=== PATIENT | male | born 1990 | race African-American/Black ===

== ENCOUNTER 2017-04-03 07:14 | Emergency (ER) | payer SELFPAY ==
[2017-04-03] MEDS ORDERED: METOCLOPRAMIDE HCL 10 MG TABLET PO ONE (08:03)
[2017-04-03] MEDS ORDERED: DICYCLOMINE HCL 20 MG TABLET PO ONE (08:03)
[2017-04-03 08:24] LABS: ABSOLUTE EOSINOPHILS # (AUTO) 0.4 10^3/uL (0.0-0.6); ABSOLUTE LYMPHOCYTES (AUTO) 1.4 10^3/uL (0.5-4.7); ABSOLUTE MONOCYTES (AUTO) 0.6 10^3/uL (0.1-1.4); ABSOLUTE NEUT (AUTO) 4.5 10^3/uL (1.7-8.2); BASOPHILS % (AUTO) 0.5 % (0-2); EOSINOPHILS % (AUTO) 5.8 % (0-6); HEMATOCRIT 45.6 % (37.9-51.0); HEMOGLOBIN 15.5 g/dL (13.5-17.0); LYMPHOCYTES % (AUTO) 20.2 % (13-45); MEAN CORPUSCULAR HGB CONC 34.1 g/dL (32.0-36.0); MEAN CORPUSCULAR VOLUME 88 fl (80-97); MONOCYTES % (AUTO) 8.4 % (3-13); PLATELET COUNT 359 10^3/uL (150-450); RED BLOOD COUNT 5.18 10^6/uL (4.35-5.55); RED CELL DISTRIBUTION WIDTH 13.6 % (11.5-14.0); SEGMENTED NEUTROPHILS % (AUTO) 65.1 % (42-78); TOTAL CELLS COUNTED % (AUTO) 100 %; WHITE BLOOD COUNT 6.8 10^3/uL (4.0-10.5)
--- NOTE | 2017-04-03 08:37 | ER Document Report ---
ED General - General Chief Complaint: Abdominal Pain Stated Complaint: STOMACH ACHE Time Seen by Provider: 04/03/17 07:29 Mode of Arrival: Ambulatory Information source: Patient Notes: 27 yr old male presents with complaints of nausea and diarrhea of 2 week duration with cramping and intermittent blood bright red tinge stool. Pt denies any fevers or chills, denies any vomiting. no previous hx, no family hx, no well water, TRAVEL OUTSIDE OF THE [place] IN LAST 30 DAYS: No - HPI Onset: Other Onset/Duration: Persistent Quality of pain: No pain Severity: Mild Pain Level: Denies Associated symptoms: Diarrhea, Nausea Exacerbated by: Denies Relieved by: Denies Similar symptoms previously: No Recently seen / treated by doctor: No - Related Data Allergies/Adverse Reactions: No Known Allergies Allergy (Unverified 04/03/17 07:17) Past Medical History - Social History Smoking Status: Current Every Day Smoker Cigarette use (# per day): Yes Chew tobacco use (# tins/day): No Smoking Education Provided: No Frequency of alcohol use: None Drug Abuse: None Family History: Reviewed & Not Pertinent Patient has suicidal ideation: No Patient has homicidal ideation: No Renal/ Medical History: Denies: Hx Peritoneal Dialysis Review of Systems - Review of Systems Notes: REVIEW OF SYSTEMS: CONSTITUTIONAL : Denies fever, chills, or sweats. Admits recent illness. EENT: Denies eye, ear, throat, or mouth pain or symptoms. Denies nasal or sinus congestion or discharge. Denies throat, tongue, or mouth swelling or difficulty swallowing. CARDIOVASCULAR: Denies chest pain. Denies palpitations or racing or irregular heart beat. Denies ankle edema. RESPIRATORY: Denies cough, cold, or chest congestion. Denies shortness of breath, difficulty breathing, or wheezing. GASTROINTESTINAL: admit to abd pain, cramping , nausea diarrhea GENITOURINARY: Denies difficulty urinating, painful urination, burning, frequency, blood in urine, or discharge. MUSCULOSKELETAL: Denies back or neck pain or stiffness. Denies joint pain or swelling. SKIN: Denies rash, lesions or sores. HEMATOLOGIC : Denies easy bruising or bleeding. LYMPHATIC: Denies swollen, enlarged glands. NEUROLOGICAL: Denies confusion or altered mental status. Denies passing out or loss of consciousness. Denies dizziness or lightheadedness. Denies headache. Denies weakness or paralysis or loss of use of either side. Denies problems with gait or speech. Denies sensory loss, numbness, or tingling. Denies seizures. PSYCHIATRIC: Denies anxiety or stress. Denies depression, suicidal ideation, or homicidal ideation. ALL OTHER SYSTEMS REVIEWED AND NEGATIVE. Dictation was performed using [employer] voice recognition software PHYSICAL EXAMINATION: GENERAL: Well-appearing, well-nourished and in no acute distress. HEAD: Atraumatic, normocephalic. EYES: Pupils equal round and reactive to light, extraocular movements intact, sclera anicteric, conjunctiva are normal. ENT: Nares patent, oropharynx clear without exudates. Moist mucous membranes. NECK: Normal range of motion, supple without lymphadenopathy LUNGS: Breath sounds clear to auscultation bilaterally and equal. No wheezes rales or rhonchi. HEART: Regular rate and rhythm without murmurs ABDOMEN: Soft, nontender, nondistended abdomen. No guarding, no rebound. No masses appreciated. Musculoskeletal: Normal range of motion, no pitting or edema. No cyanosis. NEUROLOGICAL: Cranial nerves grossly intact. Normal speech, normal gait. Normal sensory, motor exams PSYCH: Normal mood, normal affect. SKIN: Warm, Dry, normal turgor, no rashes or lesions noted. Physical Exam - Vital signs Vitals: Temp Pulse Resp BP Pulse Ox 98.3 F 85 16 143/82 H 98 04/03/17 07:23 04/03/17 07:23 04/03/17 07:23 04/03/17 07:23 04/03/17 07:23 Course - Re-evaluation Re-evalutation: 04/03/17 08:37 Patient's abdominal examination is quite benign, there is no sign of fever however stool sample was noted to be quite foul-smelling 04/03/17 10:29 White blood cells and C. difficile were negative patient will be treated for probable bacterial diarrhea After performing a Medical Screening Examination, I estimate there is LOW risk for ACUTE APPENDICITIS, BOWEL OBSTRUCTION, ACUTE CHOLECYSTITIS, PERFORATED DIVERTICULITIS, INCARCERATED HERNIA, PANCREATITIS, TESTICULAR TORSION or PERFORATED ULCER, thus I consider the discharge disposition reasonable. Also, there is no evidence or peritonitis, sepsis, or toxicity. I have reevaluated this patient multiple times and no significant life threatening changes are noted. The patient and I have discussed the diagnosis and risks, and we agree with discharging home with close follow-up with the understanding that symptoms and presentations can change. We also discussed returning to the Emergency Department immediately if new or worsening symptoms occur. We have discussed the symptoms which are most concerning (e.g., bloody stool, fever, changing or worsening pain, intractable vomiting - standard verbal up date) that necessitate immediate return. - Vital Signs Vital signs: Temp Pulse Resp BP Pulse Ox 98.3 F 85 16 143/82 H 98 04/03/17 07:23 04/03/17 07:23 04/03/17 07:23 04/03/17 07:23 04/03/17 07:23 - Laboratory Result Diagrams: 04/03/17 07:58 04/03/17 07:58 Laboratory results interpreted by me: 04/03/17 07:58 Glucose 140 H AST 16 L Discharge - Discharge Clinical Impression: Abdominal cramping Diarrhea Qualifiers: Diarrhea type: unspecified type Qualified Code(s): R19.7 - Diarrhea, unspecified Condition: Stable Disposition: HOME, SELF-CARE Instructions: Abdominal Pain ([facility]) Additional Instructions: Follow up with your physician tomorrow for further care or return to the ED IMMEDIATELY if symptoms worsen or new concerns occur. If you cannot afford to follow up with your primary care physician a list of low cost clinics have been provided at the end of your discharge papers as well. Prescriptions: Ciprofloxacin HCl [Cipro 500 mg Tablet] 500 mg PO BID #20 tablet Metronidazole [Flagyl 500 mg Tablet] 500 mg PO Q8 #30 tablet
[2017-04-03 08:39] LABS: ALANINE AMINOTRANSFERASE 24 U/L (21-72); ALKALINE PHOSPHATASE 90 U/L (38-126); ANION GAP 12 (5-19); ASPARTATE AMINO TRANSFERASE 16 U/L (17-59); BILIRUBIN,DIRECT 0.2 mg/dL (0.0-0.4); BILIRUBIN,TOTAL 0.5 mg/dL (0.2-1.3); BLOOD UREA NITROGEN 10 mg/dL (7-20); CALCIUM 10.2 mg/dL (8.4-10.2); CARBON DIOXIDE 25 mmol/L (22-30); CHLORIDE 103 mmol/L (98-107); GLUCOSE 140 mg/dL (75-110); LIPASE 27.5 U/L (23-300); POTASSIUM 4.3 mmol/L (3.6-5.0); SODIUM 140.3 mmol/L (137-145); TOTAL PROTEIN 6.7 g/dL (6.3-8.2)
[2017-04-03 10:50] VITALS: BP 128/75
== END 2017-04-03 10:49 | disposition home or self-care (01) ==
LOC: ER 07:14
DX: R10.9 Unspecified abdominal pain (principal); R19.7 Diarrhea, unspecified; R11.0 Nausea; F17.210 Nicotine dependence, cigarettes, uncomplicated
CPT/HCPCS: 99284; 36415; 87045; 89055; 87205; 87209; 83690; 87177; 85025; 80053; 87493; J3490

== ENCOUNTER 2017-04-21 04:05 | Emergency (ER) | payer SELFPAY ==
[2017-04-21 04:32] LABS: ABSOLUTE EOSINOPHILS # (AUTO) 0.2 10^3/uL (0.0-0.6); ABSOLUTE LYMPHOCYTES (AUTO) 0.9 10^3/uL (0.5-4.7); ABSOLUTE MONOCYTES (AUTO) 0.5 10^3/uL (0.1-1.4); BASOPHILS % (AUTO) 0.5 % (0-2); EOSINOPHILS % (AUTO) 2.9 % (0-6); HEMOGLOBIN 15.3 g/dL (13.5-17.0); LYMPHOCYTES % (AUTO) 12.2 % (13-45); MEAN CORPUSCULAR HEMOGLOBIN 29.9 pg (27.0-33.4); MEAN CORPUSCULAR VOLUME 88 fl (80-97); MONOCYTES % (AUTO) 6.6 % (3-13); PLATELET COUNT 354 10^3/uL (150-450); RED BLOOD COUNT 5.11 10^6/uL (4.35-5.55); RED CELL DISTRIBUTION WIDTH 13.7 % (11.5-14.0); SEGMENTED NEUTROPHILS % (AUTO) 77.8 % (42-78); TOTAL CELLS COUNTED % (AUTO) 100 %; WHITE BLOOD COUNT 7.7 10^3/uL (4.0-10.5)
[2017-04-21 05:02] LABS: APPEARANCE,URINE CLOUDY; BILIRUBIN,URINE NEGATIVE (NEGATIVE); COLOR,URINE YELLOW; GLUCOSE, URINE NEGATIVE (NEGATIVE); KETONES,URINE NEGATIVE (NEGATIVE); LEUKOCYTE ESTERASE,URINE NEGATIVE (NEGATIVE); NITRITE,URINE NEGATIVE (NEGATIVE); PROTEIN,URINE NEGATIVE (NEGATIVE); URINE SPECIFIC GRAVITY 1.015; UROBILINOGEN,URINE NEGATIVE mg/dL (<2.0)
[2017-04-21 05:06] LABS: ALANINE AMINOTRANSFERASE 22 U/L (21-72); ALBUMIN 4.5 g/dL (3.5-5.0); ALKALINE PHOSPHATASE 74 U/L (38-126); ANION GAP 10 (5-19); ASPARTATE AMINO TRANSFERASE 21 U/L (17-59); BILIRUBIN,DIRECT 0.3 mg/dL (0.0-0.4); BILIRUBIN,TOTAL 0.4 mg/dL (0.2-1.3); BLOOD UREA NITROGEN 11 mg/dL (7-20); CALCIUM 10.4 mg/dL (8.4-10.2); CARBON DIOXIDE 25 mmol/L (22-30); CHLORIDE 107 mmol/L (98-107); GLUCOSE 107 mg/dL (75-110); POTASSIUM 4.7 mmol/L (3.6-5.0); SODIUM 141.5 mmol/L (137-145); TOTAL PROTEIN 7.4 g/dL (6.3-8.2)
[2017-04-21] MEDS ORDERED: METOCLOPRAMIDE HCL INJ/PF 10 MG/2 ML SDV IV ONE (06:22)
[2017-04-21] MEDS ORDERED: DICYCLOMINE HCL 20 MG TABLET PO ONE (06:22)
--- NOTE | 2017-04-21 07:20 | ER Document Report ---
ED General - General Chief Complaint: Abdominal Cramping Stated Complaint: ABDOMINAL PAIN Time Seen by Provider: 04/21/17 06:10 Mode of Arrival: Ambulatory Information source: Patient Notes: 27-year-old male who presents with complaints of intermittent abdominal cramping. Patient notes symptoms first started a couple weeks ago when he had seen me, he notes his symptoms improved after medications but once medications resolved he had cramping again. Patient denies any fevers or chills notes the gas has improved. He denies any specific food causing the cramping denies any similar family history denies any significant diarrhea TRAVEL OUTSIDE OF THE [place] IN LAST 30 DAYS: No - HPI Onset: Other Onset/Duration: Intermittent Quality of pain: Cramping Severity: Mild Pain Level: 1 Associated symptoms: Diarrhea, Nausea, Other Exacerbated by: Denies Relieved by: Denies Similar symptoms previously: Yes Recently seen / treated by doctor: Yes - Related Data Allergies/Adverse Reactions: No Known Allergies Allergy (Unverified 04/03/17 07:17) Past Medical History - Social History Smoking Status: Never Smoker Cigarette use (# per day): No Chew tobacco use (# tins/day): No Smoking Education Provided: No Frequency of alcohol use: None Drug Abuse: None Family History: Reviewed & Not Pertinent Patient has suicidal ideation: No Patient has homicidal ideation: No Renal/ Medical History: Denies: Hx Peritoneal Dialysis Review of Systems - Review of Systems Notes: REVIEW OF SYSTEMS: CONSTITUTIONAL : Denies fever, chills, or sweats. Denies recent illness. EENT: Denies eye, ear, throat, or mouth pain or symptoms. Denies nasal or sinus congestion or discharge. Denies throat, tongue, or mouth swelling or difficulty swallowing. CARDIOVASCULAR: Denies chest pain. Denies palpitations or racing or irregular heart beat. Denies ankle edema. RESPIRATORY: Denies cough, cold, or chest congestion. Denies shortness of breath, difficulty breathing, or wheezing. GASTROINTESTINAL: Admits to abdominal cramping GENITOURINARY: Denies difficulty urinating, painful urination, burning, frequency, blood in urine, or discharge. MUSCULOSKELETAL: Denies back or neck pain or stiffness. Denies joint pain or swelling. SKIN: Denies rash, lesions or sores. HEMATOLOGIC : Denies easy bruising or bleeding. LYMPHATIC: Denies swollen, enlarged glands. NEUROLOGICAL: Denies confusion or altered mental status. Denies passing out or loss of consciousness. Denies dizziness or lightheadedness. Denies headache. Denies weakness or paralysis or loss of use of either side. Denies problems with gait or speech. Denies sensory loss, numbness, or tingling. Denies seizures. PSYCHIATRIC: Denies anxiety or stress. Denies depression, suicidal ideation, or homicidal ideation. ALL OTHER SYSTEMS REVIEWED AND NEGATIVE. Dictation was performed using [employer] voice recognition software PHYSICAL EXAMINATION: GENERAL: Well-appearing, well-nourished and in no acute distress. HEAD: Atraumatic, normocephalic. EYES: Pupils equal round and reactive to light, extraocular movements intact, sclera anicteric, conjunctiva are normal. ENT: Nares patent, oropharynx clear without exudates. Moist mucous membranes. NECK: Normal range of motion, supple without lymphadenopathy LUNGS: Breath sounds clear to auscultation bilaterally and equal. No wheezes rales or rhonchi. HEART: Regular rate and rhythm without murmurs ABDOMEN: Soft, nontender, nondistended abdomen. No guarding, no rebound. No masses appreciated. Musculoskeletal: Normal range of motion, no pitting or edema. No cyanosis. NEUROLOGICAL: Cranial nerves grossly intact. Normal speech, normal gait. Normal sensory, motor exams PSYCH: Normal mood, normal affect. SKIN: Warm, Dry, normal turgor, no rashes or lesions noted. Physical Exam - Vital signs Vitals: Temp Pulse Resp BP Pulse Ox 98.4 F 91 18 145/88 H 97 04/21/17 04:10 04/21/17 04:10 04/21/17 04:10 04/21/17 04:10 04/21/17 04:10 Course - Re-evaluation Re-evalutation: 04/21/17 07:18 Patient's blood work looks significantly well is in no complaints, he denies any cramping or pain now. He is stable at this time. will treat symptomatically with follow up with GI Patient instructed on risks and benefits of medications prescribed. Denies any concerns regarding such. After performing a Medical Screening Examination, I estimate there is LOW risk for ACUTE APPENDICITIS, BOWEL OBSTRUCTION, ACUTE CHOLECYSTITIS, PERFORATED DIVERTICULITIS, INCARCERATED HERNIA, PANCREATITIS, TESTICULAR TORSION or PERFORATED ULCER, thus I consider the discharge disposition reasonable. Also, there is no evidence or peritonitis, sepsis, or toxicity. I have reevaluated this patient multiple times and no significant life threatening changes are noted. The patient and I have discussed the diagnosis and risks, and we agree with discharging home with close follow-up with the understanding that symptoms and presentations can change. We also discussed returning to the Emergency Department immediately if new or worsening symptoms occur. We have discussed the symptoms which are most concerning (e.g., bloody stool, fever, changing or worsening pain, intractable vomiting - standard verbal up date) that necessitate immediate return. 04/21/17 07:20 - Vital Signs Vital signs: Temp Pulse Resp BP Pulse Ox 98.4 F 91 18 145/88 H 97 04/21/17 04:10 04/21/17 04:10 04/21/17 04:10 04/21/17 04:10 04/21/17 04:10 - Laboratory Result Diagrams: 04/21/17 04:22 04/21/17 04:22 Laboratory results interpreted by me: 04/21/17 04/21/17 04/21/17 04:22 04:22 04:22 Lymphocytes % 12.2 L Calcium 10.4 H Urine Blood SMALL H Discharge - Discharge Clinical Impression: Bowel irritation Abdominal pain Qualifiers: Abdominal location: lower abdomen, unspecified Qualified Code(s): R10.30 - Lower abdominal pain, unspecified Condition: Stable Disposition: HOME, SELF-CARE Instructions: Abdominal Pain ([facility]) Prescriptions: Dicyclomine HCl [Bentyl 20 mg Tablet] 20 mg PO QID #40 tablet Prednisone [Deltasone 20 mg Tablet] 3 tab PO DAILY 5 Days tablet Referrals: IMTIAZ HERNANDEZ MD [ACTIVE STAFF] - Follow up tomorrow
[2017-04-21 07:39] VITALS: BP 148/79
== END 2017-04-21 07:39 | disposition home or self-care (01) ==
LOC: ER 04:05
DX: K58.9 Irritable bowel syndrome, unspecified (principal); R10.30 Lower abdominal pain, unspecified
CPT/HCPCS: 99284; 96374; 36415; 85025; 80053; 81001; J3490; J2765

== ENCOUNTER 2017-05-30 07:33 | Observation (INO) | payer SELFPAY ==
--- NOTE | 2017-05-30 08:00 | ER Document Report ---
ED General - General Chief Complaint: Nausea/Vomiting Stated Complaint: VOMITING Time Seen by Provider: 05/30/17 07:59 Mode of Arrival: Ambulatory Information source: Patient TRAVEL OUTSIDE OF THE [place] IN LAST 30 DAYS: No - HPI Notes: 19-year-old male presents today with complaints of having epigastric pain, nausea and vomiting with bloating for the last week. Denies any coffee-ground emesis, denies any hemoptysis. Reports decreased appetite and drinking. Denies any diarrhea. Patient is having regular bowel movements. Patient denies any recent travel, new medications or new foods. Patient denies having history of gastritis. Has not been around any sick contacts. Patient currently is not working, states he has not been around a lot of people. Denies fevers, chills, chest pain,palpitations, shortness of breath, dyspnea, diarrhea, abdominal pain, hematuria,blurred vision, double vision, loss of vision, speech changes, LH, dizziness, syncope, headaches, wheezing, ST, URI, neck pain, weakness, bowel or bladder dysfunction, saddle anesthesia, numbness or tingling in bilateral upper or lower extremities equally, muscle paralysis, weakness in bilateral upper or lower extremities equally or rash. Denies IV drug use. - Related Data Allergies/Adverse Reactions: No Known Allergies Allergy (Verified 05/30/17 07:34) Past Medical History - General Information source: Patient - Social History Smoking Status: Unknown if Ever Smoked Family History: Reviewed & Not Pertinent Renal/ Medical History: Denies: Hx Peritoneal Dialysis Review of Systems - Review of Systems Notes: REVIEW OF SYSTEMS: CONSTITUTIONAL : Denies fever, chills, or sweats. Denies recent illness. EENT: Denies eye, ear, throat, or mouth pain or symptoms. Denies nasal or sinus congestion or discharge. Denies throat, tongue, or mouth swelling or difficulty swallowing. CARDIOVASCULAR: Denies chest pain. Denies palpitations or racing or irregular heart beat. Denies ankle edema. RESPIRATORY: Denies cough, cold, or chest congestion. denies shortness of breath, difficulty breathing, or wheezing. GASTROINTESTINAL: Denies abdominal pain or distention. Reports nausea, vomiting, or diarrhea. Denies blood in vomitus, stools, or per rectum. Denies black, tarry stools. Denies constipation. GENITOURINARY: Denies difficulty urinating, painful urination, burning, frequency, blood in urine, or discharge. MUSCULOSKELETAL: Denies back or neck pain or stiffness. Denies joint pain or swelling. SKIN: Denies rash, lesions or sores. HEMATOLOGIC : Denies easy bruising or bleeding. LYMPHATIC: Denies swollen, enlarged glands. NEUROLOGICAL: Denies confusion or altered mental status. Denies passing out or loss of consciousness. Denies dizziness or lightheadedness. Denies headache. Denies weakness or paralysis or loss of use of either side. Denies problems with gait or speech. Denies sensory loss, numbness, or tingling. Denies seizures. PSYCHIATRIC: Denies anxiety or stress. Denies depression, suicidal ideation, or homicidal ideation. ALL OTHER SYSTEMS REVIEWED AND NEGATIVE. Dictation was performed using [employer] voice recognition software PHYSICAL EXAMINATION: GENERAL: Well-appearing, well-nourished and in no acute distress. HEAD: Atraumatic, normocephalic. EYES: Pupils equal round and reactive to light, extraocular movements intact, sclera anicteric, conjunctiva are normal. ENT: Nares patent, oropharynx clear without exudates. Moist mucous membranes. NECK: Normal range of motion, supple without lymphadenopathy LUNGS: Breath sounds clear to auscultation bilaterally and equal. No wheezes rales or rhonchi. HEART: Regular rate and rhythm without murmurs ABDOMEN: Soft, noted epigastric tenderness as well as RUQ, LUQ tenderness on palpation. nondistended abdomen. No guarding, no rebound. No masses appreciated. Bowel sounds heard in all quadrants. No CVA tenderness bilaterally. Musculoskeletal: Normal range of motion, no pitting or edema. No cyanosis. NEUROLOGICAL: Cranial nerves grossly intact. Normal speech, normal gait. Normal sensory, motor exams PSYCH: Normal mood, normal affect. SKIN: Warm, Dry, normal turgor, no rashes or lesions noted. Physical Exam - Vital signs Vitals: Temp Pulse Resp BP Pulse Ox 98.6 F 99 18 130/85 H 98 05/30/17 07:37 05/30/17 07:37 05/30/17 07:37 05/30/17 07:37 05/30/17 07:37 Course - Re-evaluation Re-evalutation: 05/30/17 12:27 Pt given 2 boluses of normal saline as well as medication for pain control. Patient is in no distress. Patient also given Zofran for nausea. awaiting CT results Discussed the results of thelabs/radiology as well as the diagnosis at great length. CBC is negative for any leukocytosis. CMP negative for any renal failure or liver failure. Urinalysis shows hematuria with proteinuria. CT abdomen pelvis with oral and IV contrast shows the patient has an incarcerated internal hernia, probably paraduodenal. Consulted with Dr. Dmitry Prescott, surgeon on-call, at 1215 regarding pertinent radiological and laboratory findings. Stated he will consult with patient at bedside. Dr. Prescott admit patient for surgery. Consulted with patient, states he understands diagnoses, all questions and concerns answered by this provider. Patient admitted to medical floor without telemetry. - Vital Signs Vital signs: Temp Pulse Resp BP Pulse Ox 98.6 F 86 18 141/87 H 98 05/30/17 13:15 05/30/17 13:15 05/30/17 13:15 05/30/17 13:15 05/30/17 13:15 - Laboratory Result Diagrams: 05/30/17 08:54 05/30/17 08:54 Laboratory results interpreted by me: 05/30/17 05/30/17 08:54 08:54 Calcium 10.5 H Direct Bilirubin 0.5 H Total Protein 8.4 H Urine Protein 30 H Urine Ketones 80 H Urine Blood MODERATE H Discharge - Discharge Clinical Impression: Incarcerated internal hernia Condition: Good Disposition: ADMITTED INPATIENT Admitting Provider: Surgicalist - Dr. Dmitry Prescott Unit Admitted: Medical Floor
[2017-05-30] MEDS ORDERED: ONDANSETRON HCL INJ/PF 4 MG/2 ML SDV IV ONE (08:16)
[2017-05-30] MEDS ORDERED: NORMAL SALINE 1000 ML 1,000 ML IV ONE ×2 (08:16→11:36)
[2017-05-30] MEDS ORDERED: SUCCINYLCHOLINE CHLORIDE INJ 200 MG/10 ML VIAL ONE (08:22)
[2017-05-30] MEDS ORDERED: NEOSTIGMINE METHYLSULFATE 10 MG/10 ML VIAL ONE (08:22)
[2017-05-30] MEDS ORDERED: GLYCOPYRROLATE INJ 0.4 MG/2 ML VIAL ONE (08:22)
[2017-05-30] MEDS ORDERED: VECURONIUM BROMIDE INJ 10 MG VIAL IV ONE (08:22)
[2017-05-30 09:09] LABS: ABSOLUTE EOSINOPHILS # (AUTO) 0.1 10^3/uL (0.0-0.6); ABSOLUTE LYMPHOCYTES (AUTO) 0.9 10^3/uL (0.5-4.7); ABSOLUTE MONOCYTES (AUTO) 0.6 10^3/uL (0.1-1.4); ABSOLUTE NEUT (AUTO) 4.4 10^3/uL (1.7-8.2); BASOPHILS % (AUTO) 0.6 % (0-2); EOSINOPHILS % (AUTO) 1.3 % (0-6); HEMATOCRIT 48.4 % (37.9-51.0); HEMOGLOBIN 16.7 g/dL (13.5-17.0); LYMPHOCYTES % (AUTO) 14.9 % (13-45); MEAN CORPUSCULAR HEMOGLOBIN 30.1 pg (27.0-33.4); MEAN CORPUSCULAR HGB CONC 34.4 g/dL (32.0-36.0); MEAN CORPUSCULAR VOLUME 88 fl (80-97); MONOCYTES % (AUTO) 9.5 % (3-13); PLATELET COUNT 370 10^3/uL (150-450); RED BLOOD COUNT 5.53 10^6/uL (4.35-5.55); RED CELL DISTRIBUTION WIDTH 13.9 % (11.5-14.0); SEGMENTED NEUTROPHILS % (AUTO) 73.7 % (42-78); TOTAL CELLS COUNTED % (AUTO) 100 %
[2017-05-30 09:35] LABS: ALANINE AMINOTRANSFERASE 23 U/L (21-72); ALKALINE PHOSPHATASE 83 U/L (38-126); AMYLASE 70 U/L (30-110); ANION GAP 14 (5-19); ASPARTATE AMINO TRANSFERASE 17 U/L (17-59); BILIRUBIN,DIRECT 0.5 mg/dL (0.0-0.4); BILIRUBIN,TOTAL 0.9 mg/dL (0.2-1.3); BLOOD UREA NITROGEN 15 mg/dL (7-20); C-REACTIVE PROTEIN < 5.0 mg/L (<10.0); CALCIUM 10.5 mg/dL (8.4-10.2); CARBON DIOXIDE 26 mmol/L (22-30); CHLORIDE 100 mmol/L (98-107); GLUCOSE 84 mg/dL (75-110); LIPASE 33.1 U/L (23-300); POTASSIUM 4.5 mmol/L (3.6-5.0); SODIUM 139.6 mmol/L (137-145); TOTAL PROTEIN 8.4 g/dL (6.3-8.2)
[2017-05-30 10:10] LABS: APPEARANCE,URINE SLIGHTLY-CLOUDY; BILIRUBIN,URINE NEGATIVE (NEGATIVE); COLOR,URINE YELLOW; GLUCOSE, URINE NEGATIVE (NEGATIVE); KETONES,URINE 80 mg/dL (NEGATIVE); LEUKOCYTE ESTERASE,URINE NEGATIVE (NEGATIVE); NITRITE,URINE NEGATIVE (NEGATIVE); PROTEIN,URINE 30 mg/dL (NEGATIVE); URINE SPECIFIC GRAVITY 1.038; UROBILINOGEN,URINE NEGATIVE mg/dL (<2.0)
--- NOTE | 2017-05-30 11:57 | RADIOLOGY REPORT (SQ) ---
EXAM DESCRIPTION: CT ABD/PELVIS WITH IV ORAL COMPLETED DATE/TIME: 05/30/2017 11:43 am REASON FOR STUDY: epigastric pain with vomiting x 1 week COMPARISON: None. TECHNIQUE: CT scan of the abdomen and pelvis performed using helical scanning technique with dynamic intravenous contrast injection. No oral contrast. Images reviewed with lung, soft tissue, and bone windows. Reconstructed coronal and sagittal MPR images reviewed. Delayed images for evaluation of the urinary system also acquired. All images stored on PACS. All CT scanners at this facility use dose modulation, iterative reconstruction, and/or weight based d osing when appropriate to reduce radiation dose to as low as reasonably achievable (ALARA). [facility]: Dose Right [facility]: CareDose [facility]: Dose Right [facility]: Teradose 4D [facility]: [employer] CONTRAST TYPE AND DOSE: contrast/concentration: Isovue 370.00 mg/ml; Total Contrast Delivered: 90.0 ml; Total Saline Delivered: 67.0 ml RENAL FUNCTION: GFR > 60. RADIATION DOSE: CT Rad equipment meets quality standard of care and radiation dose reduction techniq ues were employed. CTDIvol: 5.6 - 7.4 mGy. DLP: 716 mGy-cm.. LIMITATIONS: None. FINDINGS: LOWER CHEST: No significant findings. No nodules or infiltrates. LIVER: Normal size. No masses. No dilated ducts. SPLEEN: Normal size. No focal lesions. PANCREAS: No masses. No significant calcifications. No adjacent inflammation or peripancreatic fluid collections. Pancreatic duct not dilated. GALLBLADDER: No identified stones by CT criteria. No inflammatory changes to suggest cholecystitis. ADRENAL GLANDS: No significant masses or asymmetry. RIGHT KIDNEY AND URETER: No solid masses. No significant calcifications. No hydronephrosis or hyd roureter. LEFT KIDNEY AND URETER: No solid masses. No significant calcifications. No hydronephrosis or hydr oureter. AORTA AND VESSELS: No aneurysm. No dissection. Renal arteries, SMA, celiac without stenosis. RETROPERITONEUM: No retroperitoneal adenopathy, hemorrhage or masses. BOWEL AND PERITONEAL CAVITY: Dilated loops of edematous bowel in the anterior upper abdomen with a sw irling mesenteric pattern in the subhepatic peritoneum. More distal small bowel and colon is normal. No free air or ascites. APPENDIX: Normal. PELVIS: No mass. No free fluid. Normal bladder. ABDOMINAL WALL: No masses. No hernias. BONES: No significant or acute findings. OTHER: No other significant finding. IMPRESSION: Incarcerated internal hernia, probably paraduodenal. Surgical consultation is recommend ed. TECHNICAL DOCUMENTATION: JOB ID: [id number] Quality ID # [id number]: Final reports with documentation of one or more dose reduction techniques (e.g., Au tomated exposure control, adjustment of the mA and/or kV according to patient size, use of iterative reconstruction technique) 2010 [employer]- All Rights Reserved Reading location - IP/workstation name: [email or web address]
[2017-05-30] MEDS ORDERED: HYDROMORPHONE HCL INJ/PF 2 MG/ML AMPULE IV ONE (12:33)
[2017-05-30] MEDS ORDERED: METOCLOPRAMIDE HCL INJ/PF 10 MG/2 ML SDV IV ONE (13:02)
[2017-05-30] MEDS: NORMAL SALINE 1000 ML 1,000 ML IV PRN (13:05)
--- NOTE | 2017-05-30 13:44 | PDOC H&P ---
History of Present Illness Admission Date/PCP: 05/30/17 13:11 History of Present Illness: ELOISE FLETCHER is a 27 year old male Is seen via ground rescue in the emergency department [facility] for the third time in 2 months complaining of abdominal pain. Patient describes his pain as cramping which began in February. They actually followed flulike symptoms for approximately 1 week. Over the last 2-1/2-3 months the cramping is become more frequent, associated with decreased appetite nausea and over the last several days of vomiting. Patient was seen in the emergency department on April 20 and April 03 at which time he was found to have no evidence of an acute abdomen. Patient's stools have been loose occasionally patient was given p.o. antibiotics the April 20 visit states his symptoms improved temporarily. Patient has had increased pain decreased appetite much more intense the last few days. Last meal was 2 days ago was a salad. Patient thinks he has lost between 20 and 40 pounds over the last 3 months. Patient denies history of previous gastro-intestinal problems, history of trauma. Past Medical History Medical History: None Past Surgical History Past Surgical History: Reports: Other - Umbilical hernia, open, as a child Social History Smoking Status: Former Smoker Family History Family History: Reviewed & Not Pertinent Parental Family History Reviewed: Yes Children Family History Reviewed: Yes Sibling(s) Family History Reviewed.: Yes Medication/Allergy Home Medications: Ciprofloxacin HCl [Cipro 500 mg Tablet] 500 mg PO BID #20 tablet 04/03/17 Dicyclomine HCl [Bentyl 20 mg Tablet] 20 mg PO QID #40 tablet 04/03/17 Metoclopramide HCl [Reglan 10 mg Tablet] 1 - 2 tab PO Q6 #25 tablet 04/03/17 Metronidazole [Flagyl 500 mg Tablet] 500 mg PO Q8 #30 tablet 04/03/17 Dicyclomine HCl [Bentyl 20 mg Tablet] 20 mg PO QID #40 tablet 04/21/17 Prednisone [Deltasone 20 mg Tablet] 3 tab PO DAILY 5 Days tablet 04/21/17 Allergies/Adverse Reactions: No Known Allergies Allergy (Verified 05/30/17 07:34) Review of Systems Constitutional: PRESENT: weakness Eyes: ABSENT: visual disturbances Ears: ABSENT: hearing changes Cardiovascular: ABSENT: chest pain, dyspnea on exertion, edema, orthropnea, palpitations Gastrointestinal: PRESENT: as per HPI Genitourinary: ABSENT: dysuria, hematuria Musculoskeletal: ABSENT: joint swelling Integumentary: ABSENT: rash, wounds Physical Exam Vital Signs: Temp Pulse Resp BP Pulse Ox 98.6 F 99 18 130/85 H 98 05/30/17 07:37 05/30/17 07:37 05/30/17 07:37 05/30/17 07:37 05/30/17 07:37 General appearance: PRESENT: no acute distress Head exam: PRESENT: normocephalic Eye exam: PRESENT: EOMI Ear exam: PRESENT: normal external ear exam Mouth exam: PRESENT: dry mucosa Neck exam: PRESENT: full ROM Respiratory exam: PRESENT: clear to auscultation arabella Pulses: PRESENT: normal carotid pulses, normal radial pulses, normal femoral pulses Vascular exam: PRESENT: normal capillary refill GI/Abdominal exam: PRESENT: firm, guarding, other - Tenderness in the epigastric area; I cannot palpate deeply enough to appreciate a mass Rectal exam: PRESENT: deferred Gentrourinary exam: PRESENT: other - Unremarkable Musculoskeletal exam: PRESENT: full ROM Neurological exam: PRESENT: oriented to person, oriented to place, oriented to time, oriented to situation Psychiatric exam: PRESENT: anxious Results Impressions: Abdomen/Pelvis CT 05/30/17 00:00 IMPRESSION: Incarcerated internal hernia, probably paraduodenal. Surgical consultation is recommended. Assessment & Plan - Diagnosis (1) Abdominal pain Qualifiers: Abdominal location: epigastric Qualified Code(s): R10.13 - Epigastric pain Is this a current diagnosis for this admission?: Yes (2) Small bowel obstruction Is this a current diagnosis for this admission?: Yes Plan: Impression: The patient has a subacute history of anorexia, weight loss, crampy abdominal pain nausea and vomiting with a CT scan demonstrating what appears to be a proximal small bowel intussusception. The exact anatomic duration is difficult to sort out. Recommendations: 1. Admit, IV fluids, n.p.o. 2. Because of the findings thus far, and pain on exam, I believe the patient deserves exploratory laparotomy. I will discuss this with the patient, with a generalized discussion of benefits and alternatives to the offered procedure. - Time Time Spent: 30 to 50 Minutes Critical Time spent with patient: 15-24 minutes Medications reviewed and adjusted accordingly: Yes Anticipated discharge: Home - Inpatient Certification Based on my medical assessment, after consideration of the patient's comorbidities, presenting symptoms, or acuity I expect that the services needed warrant INPATIENT care.: Yes I certify that my determination is in accordance with my understanding of Medicare's requirements for reasonable and necessary INPATIENT services [42 CFR 412.3e].: Yes Medical Necessity: Need For IV Fluids, Need for Pain Control, Need for IV Antibiotics, Need for Surgery
[2017-05-30] MEDS ORDERED: BUPIVACAINE INJ/PF LIPOSOME/PF 266 MG/20 ML SDV ONE (14:52)
[2017-05-30] MEDS ORDERED: LIDOCAINE 2% INJ-PF (20 MG/ML) 10 ML AMPUL ONE (15:11)
[2017-05-30] MEDS ORDERED: FENTANYL CITRATE INJ/PF 100 MCG/2 ML AMPUL ONE (15:12)
[2017-05-30] MEDS ORDERED: DEXAMETHASONE SOD PHOSPHATE INJ 4 MG/1 ML VIAL ONE (15:12)
[2017-05-30] MEDS ORDERED: ONDANSETRON HCL INJ/PF 4 MG/2 ML SDV ONE (15:12)
[2017-05-30] MEDS ORDERED: MIDAZOLAM 2 MG/2 ML INJ ONE (15:12)
[2017-05-30] MEDS ORDERED: PROPOFOL INJ 200 MG/20 ML VIAL IV ONE (15:13)
[2017-05-30] MEDS ORDERED: ACETAMINOPHEN 100 ML IV ONE (15:13)
[2017-05-30] MEDS ORDERED: BUPIVACAINE HCL 0.25 % INJ/PF (2.5 MG/1 ML) 30 ML VIAL ONE (15:54)
[2017-05-30] MEDS ORDERED: ONDANSETRON HCL INJ/PF 4 MG/2 ML SDV IV PRN (16:22)
[2017-05-30] MEDS ORDERED: KETOROLAC TROMETHAMINE 10 MG TABLET PO PRN (16:22)
--- NOTE | 2017-05-30 16:31 | Operative Report ---
Operative Report DATE OF SURGERY: 05/30/17 PREOPERATIVE DIAGNOSIS: 1. Abdominal pain. 2. Small bowel intussusception POSTOPERATIVE DIAGNOSIS: Constipation of the right and transverse colon; no evidence of bowel intussusception or bowel blockage OPERATION: 1. Exploratory laparotomy. 2. Mechanical dislodgment of transverse colon feces SURGEON: ED BRANDT ANESTHESIA: GA TISSUE REMOVED OR ALTERED: None COMPLICATIONS: None ESTIMATED BLOOD LOSS: Scant INTRAOPERATIVE FINDINGS: See below PROCEDURE: The patient was seen in the preop holding area and taken to the main operating room where general anesthesia was induced. Daniels catheter inserted and clear yellow urine drained; nasogastric tube was inserted and there was no significant drainage encountered. The abdomen was exposed, hair clipped, prepped and draped in sterile fashion. Surgical plan surgical timeout were conducted. The skin from the epigastrium to the umbilicus was anesthetized with quarter percent Marcaine. Approximately 8-1/2 cm long midline incision was made with a knife, subcutaneous tissue and midline abdominal wall fascia that is the linea alba divided with electrocautery. The peritoneal cavity was sharply entered. There was no evidence of foul smell, drainage, pus, or ascitic fluid. We manually and visually inspected the upper abdomen. The stomach and greater omentum were unremarkable. The transverse colon was significant for very hard firm stool. The transverse colon was elevated cephalad, and the small bowel eviscerated. Small bowel is normal. It was run from the ligament of Treitz to the ileocecal valve which is normal. There was no evidence of significant small bowel distention. Small bowel vasculature was normal and the right colon was full of stool as well. However the right colon transverse colon were not overly distended, and no evidence of ischemia. I did mechanically massaged some of the stool from the transverse colon proximally in mid position to the more distal transverse colon. The left colon and rectum were visualized from a distance and looked and felt grossly normal. After we eviscerated the small bowel, a good look at the retroperitoneum revealed no pathology. At this point I felt the patient's preoperative symptoms, and radiographic findings were due to the transverse and right colon constipation my: The exploratory laparotomy was otherwise unremarkable. At this point we felt the operation was complete. Sponge and needle counts are correct. Incision closed with 2 double-stranded #1 PDS sutures not tied in the middle, and skin closed with shahab. 20 cc of full-strength Exparel deployed in the subcutaneous tissue. Patient tolerated the procedure well, extubated and taken recovery room in stable condition.
[2017-05-30] MEDS: FENTANYL CITRATE INJ/PF 100 MCG/2 ML AMPUL ONE ×2 (16:42→16:50)
[2017-05-30] MEDS: MEPERIDINE HCL/PF INJ 25 MG/1 ML DISP.SYRIN ONE ×2 (16:43→16:48)
[2017-05-30] MEDS ORDERED: MEPERIDINE HCL/PF INJ 25 MG/1 ML DISP.SYRIN IV PRN (16:51)
[2017-05-30] MEDS ORDERED: DIPHENHYDRAMINE HCL 50 MG/ML VIAL IV PRN (16:51)
[2017-05-30] MEDS ORDERED: OXYCODONE-ACETAMINOPHEN 5-325 MG TABLET PO PRN ×2 (16:51)
[2017-05-30] MEDS ORDERED: PROMETHAZINE HCL INJ 25 MG/1 ML VIAL IV PRN ×2 (16:51)
[2017-05-30] MEDS ORDERED: MORPHINE SULFATE 10 MG/ML INJ IV PRN (16:51)
[2017-05-30] MEDS ORDERED: FENTANYL CITRATE INJ/PF 100 MCG/2 ML AMPUL IV PRN ×3 (16:51)
[2017-05-30] MEDS ORDERED: HYDROMORPHONE HCL INJ/PF 2 MG/ML AMPULE ONE (17:06)
[2017-05-30] MEDS: KETOROLAC TROMETHAMINE INJ/PF 30 MG/1 ML SDV IV PRN (22:41)
[2017-05-31] MEDS: KETOROLAC TROMETHAMINE INJ/PF 30 MG/1 ML SDV IV PRN ×3 (04:44→21:56)
[2017-05-31] MEDS: NORMAL SALINE 1000 ML 1,000 ML IV PRN (05:42)
--- NOTE | 2017-05-31 11:34 | PDOC PROGRESS REPORT ---
Subjective Progress Note for:: 05/31/17 Subjective:: No pains Tolerating clears Reason For Visit: PROXIMAL SMALL BOWEL OBSTRUCTION Physical Exam Vital Signs: Temp Pulse Resp BP Pulse Ox 98.0 F 66 16 138/79 H 100 05/31/17 08:17 05/31/17 08:17 05/31/17 08:17 05/31/17 08:17 05/31/17 08:17 Intake & Output 05/30/17 05/31/17 06/01/17 06:59 06:59 06:59 Intake Total 2620 Output Total 525 Balance 2095 Weight 80.8 kg Exam: abd soft nontender Results Impressions: Abdomen/Pelvis CT 05/30/17 00:00 IMPRESSION: Incarcerated internal hernia, probably paraduodenal. Surgical consultation is recommended. Assessment & Plan - Time Time Spent with patient: 15-24 minutes - Inpatient Certification Medical Necessity: Need For IV Fluids - Plan Summary Plan Summary: Gradually increase po intake Possible discharge in am
[2017-05-31] MEDS: DOCUSATE SODIUM 100 MG CAPSULE PO SCH (21:56)
[2017-06-01] MEDS: NORMAL SALINE 1000 ML 1,000 ML IV PRN (01:55)
[2017-06-01] MEDS: KETOROLAC TROMETHAMINE INJ/PF 30 MG/1 ML SDV IV PRN (10:00)
[2017-06-01] MEDS: DOCUSATE SODIUM 100 MG CAPSULE PO SCH (10:00)
[2017-06-01 16:13] VITALS: BP 128/80
--- NOTE | 2017-06-22 20:19 | DISCHARGE SUMMARY E ---
Discharge Summary NAME: ELOISE FLETCHER : 1990 AGE: 27Y ADMITTED: 05/30/2017 DISCHARGED: 06/01/2017 FINAL DIAGNOSIS: Constipation of the right colon and transverse colon. PROCEDURES: Exploratory laparotomy on 05/30/[address] Prescott. HOSPITAL COURSE: This is a 27-year-old male complaining of abdominal pain and CT scan revealed a possible intussusception of small bowel. He was taken to the operating room for exploratory laparotomy. No evidence of intussusception noted but has hard stools in the area of the right colon and transverse colon. Postoperatively, patient was able to tolerate liquids and a soft diet on the day of discharge on 06/01/17. DISPOSITION: He was then discharged improved on 06/01/17 with a final diagnosis of constipation of the right colon and transverse colon. DISCHARGE INSTRUCTIONS: 1. Follow up in the surgical clinic in 2 weeks for removal of shahab. 2. Advised not to do any lifting more than 15 pounds until seen in the clinic. 3. He can have any regular diet. DICTATING PHYSICIAN: THEA CASTANEDA M.D. [id number] PHY#: [id number] ID: [id number] JOB#: [id number] ACCT: [id number] cc:Jacinda SZYMANSKI MD, M.D. > MTDD
== END 2017-06-01 19:33 | disposition home or self-care (01) ==
LOC: ER 07:33 → INTOOBSV 13:11 → EH 13:11 → 2S 18:00
PROVIDERS: ATTEND Surgery
PROC: 0DCL0ZZ Extirpation of Matter from Transverse Colon, Open Approach (ICD-10-PCS; 2017-05-30)
PROC: 0WJP0ZZ Inspection of Gastrointestinal Tract, Open Approach (ICD-10-PCS; principal; 2017-05-30 15:30)
DX: K59.00 Constipation, unspecified (principal); R53.1 Weakness; R63.4 Abnormal weight loss; R63.0 Anorexia; R10.13 Epigastric pain; R11.2 Nausea with vomiting, unspecified; R31.9 Hematuria, unspecified; R80.9 Proteinuria, unspecified; Z87.19 Personal history of other diseases of the digestive system; Z87.891 Personal history of nicotine dependence; Z68.27 Body mass index [BMI] 27.0-27.9, adult
CPT/HCPCS: 49000; 99285; 96361; 96374; 96375; 36415; 82150; 83690; 85025; 86140; 80053; 81001; 74177; 45399; G0378 ×4; J2250; J1100; J3010; J3490 ×2; J2175; J1885 ×3; J2765; J1170; J0330; J2405; J7030 ×3; J2704; J0131; C9290; 790

== ENCOUNTER 2018-01-22 09:39 | Emergency (ER) | payer SELFPAY ==
[2018-01-22] MEDS ORDERED: NORMAL SALINE 1000 ML 1,000 ML IV ONE ×2 (09:52→11:06)
--- NOTE | 2018-01-22 09:52 | ER Document Report ---
ED Medical Screen (RME) - General Chief Complaint: Abdominal Cramping Stated Complaint: ABDOMINAL PAIN Time Seen by Provider: 01/22/18 09:46 Notes: Patient is a 28-year-old male that presents to the emergency department for chief complaint of right lower quadrant abdominal pain since . ROS: Unless otherwise stated in this report the patient's positive and negative responses for review of systems for constitutional, eyes, ENT, cardiovascular, respiratory, gastrointestinal, neurological, genitourinary, musculoskeletal, and integumentary systems and related systems to the presenting problem are either as stated in the HPI or were not pertinent or were negative for the symptoms and/or complaints related to the presenting medical problem. PHYSICAL EXAMINATION: Vital signs reviewed. GENERAL: Well-appearing, well-nourished and in no acute distress. HEAD: Atraumatic, normocephalic. EYES: Pupils equal round extraocular movements intact, conjunctiva are normal. ENT: Nares patent NECK: Normal range of motion CV: Heart regular rate and rhythm LUNGS: No respiratory distress Abdomen: Right lower quadrant abdominal tenderness with palpation Musculoskeletal: Normal range of motion NEUROLOGICAL: Normal speech PSYCH: Normal mood, normal affect. MDM: Patient seen and examined for rapid initial assessment. Vital signs reviewed. A comprehensive ED assessment and evaluation of the patient, analysis of test results and completion of the medical decision making process will be conducted by additional ED providers. *Note is created using voice recognition software and may contain spelling, syntax or grammatical errors. TRAVEL OUTSIDE OF THE [place] IN LAST 30 DAYS: No - Related Data Allergies/Adverse Reactions: No Known Allergies Allergy (Verified 01/22/18 09:43) Past Medical History - Social History Frequency of alcohol use: None Drug Abuse: None Renal/ Medical History: Denies: Hx Peritoneal Dialysis Past Surgical History: Reports: Hx Abdominal Surgery - exploratory lap, Other - Umbilical hernia, open, as a child - Immunizations History of Influenza Vaccine for 12/2016 - 05/2017 Season: Yes Influenza Administration Date for 12/2016 - 05/2017 Season: 12/26/16 Physical Exam - Vital signs Vitals: Temp Pulse Resp BP Pulse Ox 97.8 F 91 18 135/73 H 97 01/22/18 09:43 01/22/18 09:43 01/22/18 09:43 01/22/18 09:43 01/22/18 09:43 Course - Vital Signs Vital signs: Temp Pulse Resp BP Pulse Ox 97.8 F 91 18 135/73 H 97 01/22/18 09:43 01/22/18 09:43 01/22/18 09:43 01/22/18 09:43 01/22/18 09:43
[2018-01-22] MEDS ORDERED: KETOROLAC TROMETHAMINE INJ/PF 30 MG/1 ML SDV IV ONE (09:53)
[2018-01-22 10:27] LABS: APPEARANCE,URINE SLIGHTLY-CLOUDY; BILIRUBIN,URINE NEGATIVE (NEGATIVE); COLOR,URINE YELLOW; GLUCOSE, URINE NEGATIVE (NEGATIVE); KETONES,URINE NEGATIVE (NEGATIVE); LEUKOCYTE ESTERASE,URINE TRACE (NEGATIVE); NITRITE,URINE NEGATIVE (NEGATIVE); PROTEIN,URINE 30 mg/dL (NEGATIVE); URINE SPECIFIC GRAVITY 1.027
--- NOTE | 2018-01-22 10:44 | ER Document Report ---
ED GI/ - General Chief Complaint: Abdominal Cramping Stated Complaint: ABDOMINAL PAIN Time Seen by Provider: 01/22/18 09:46 Notes: Patient is a 28-year-old male presenting to the emergency department complaining of right lower and right upper abdominal cramping. Patient states he has had this pain since morning. Patient denies nausea, vomiting, diarrhea, fever, URI symptoms. Patient also denies dysuria, penile discharge, swelling or tenderness to testicles. Patient denies shortness of breath, chest pain. Patient has a Neff smoothie a half finished in the room. Patient states he has had a decrease in appetite though. Patient does state last bowel movement was yesterday and was "hard" in nature. Patient states he does have a history of constipation. Past medical history: None Medications: None Allergies: None Surgical history: Umbilical hernia repair as a child, exploratory laparotomy in May of 2017. In reviewing past notes it appears patient was suspected to have a small bowel obstruction, but after exploratory laparotomy was found with constipation. Patient denies EtOH use, illicit drug use, does admit to cigarette smoking. TRAVEL OUTSIDE OF THE [place] IN LAST 30 DAYS: No - Related Data Allergies/Adverse Reactions: No Known Allergies Allergy (Verified 01/22/18 09:43) Past Medical History - General Information source: Patient - Social History Smoking Status: Current Every Day Smoker Frequency of alcohol use: None Drug Abuse: None Lives with: Family Family History: Reviewed & Not Pertinent Patient has suicidal ideation: No Patient has homicidal ideation: No Renal/ Medical History: Denies: Hx Peritoneal Dialysis Past Surgical History: Reports: Hx Abdominal Surgery - exploratory lap, Other - Umbilical hernia, open, as a child Review of Systems - Review of Systems Constitutional: See HPI EENT: See HPI Cardiovascular: See HPI Respiratory: See HPI Gastrointestinal: See HPI Genitourinary: See HPI Male Genitourinary: See HPI Musculoskeletal: No symptoms reported Skin: No symptoms reported Hematologic/Lymphatic: No symptoms reported Neurological/Psychological: No symptoms reported Physical Exam - Vital signs Vitals: Temp Pulse Resp BP Pulse Ox 97.8 F 91 18 135/73 H 97 01/22/18 09:43 01/22/18 09:43 01/22/18 09:43 01/22/18 09:43 01/22/18 09:43 - Notes Notes: GENERAL: Alert, interacts well. No acute distress. HEAD: Normocephalic, atraumatic. EYES: Pupils equal, round, and reactive to light. Extraocular movements intact. ENT: Oral mucosa moist, tongue midline. NECK: Full range of motion. Supple. Trachea midline. LUNGS: Clear to auscultation bilaterally, no wheezes, rales, or rhonchi. No respiratory distress. HEART: Regular rate and rhythm. No murmur ABDOMEN: Soft, Non-distended. Bowel sounds present in all 4 quadrants. Positive Burkett sign, positive McBurney's point tenderness. No left lower quadrant pain no left upper quadrant pain. No epigastric pain. Bilateral testicles nonerythematous, nonswollen, nontender, circumcised no active discharge at penile meatus. EXTREMITIES: Moves all 4 extremities spontaneously. No edema, normal radial and dorsalis pedis pulses bilaterally. No cyanosis. BACK: no cervical, thoracic, lumbar midline tenderness. No saddle anesthesia, normal distal neurovascular exam. NEUROLOGICAL: Alert and oriented x3. Normal speech. cranial nerves II through XII grossly intact PSYCH: Normal affect, normal mood. SKIN: Warm, dry, normal turgor. No rashes or lesions noted. Course - Re-evaluation Re-evalutation: Discussed case with Dr. Vineet Trinidad and results of CT scan, he suggested calling surgeon Dr. Tinoco for recommendations. Stated although radiologist suggested oral contrast, pt just had a CT in May and another one today. Dr. Trinidad suggested talking to Dr. Tinoco about reviewing the CT himself to see if he wanted oral contrast. 01/22/18 12:[address] Tinoco who while on the phone with me reviewed the pts CT and still recommends oral contrast. Patient is now pain-free while lying in hospital bed. Upon palpation of right upper and right lower patient does admit to minor pain. 01/22/18 15:[address] with oral contrast, re-discussed the case with Dr. Tinoco who stated he will review the CT himself and come to the ED to see the Pt. 01/22/18 16:55 Dr. Tinoco examined the patient, reviewed the CT, did his own HPI, he states the patient has terminal ileitis and needs a gastroenterology referral. Patient states he no longer has any abdominal pain. Patient wishes for outpatient gastroenterology referral. Dr. Tinoco also requests Flagyl and Levaquin for home use. Close return precautions discussed with patient. - Vital Signs Vital signs: Temp Pulse Resp BP Pulse Ox 98 F 70 18 151/78 H 98 01/22/18 17:44 01/22/18 17:44 01/22/18 17:44 01/22/18 17:44 01/22/18 17:44 - Laboratory Result Diagrams: 01/22/18 10:26 01/22/18 10:26 Laboratory results interpreted by me: 01/22/18 01/22/18 01/22/18 10:05 10:26 10:26 Hgb 13.3 L RDW 15.2 H Plt Count 704 H Lymphocytes % 12.3 L Potassium 5.1 H Glucose 137 H AST 15 L ALT 13 L Lipase 13.4 L Urine Protein 30 H Urine Urobilinogen 2.0 H Ur Leukocyte Esterase TRACE H Discharge - Discharge Clinical Impression: Terminal ileitis Qualifiers: Digestive disease complication type: unspecified complication Qualified Code(s) : K50.019 - Crohn's disease of small intestine with unspecified complications Condition: Stable Disposition: HOME, SELF-CARE Instructions: Abdominal Pain ([facility]) Additional Instructions: As we discussed you have been seen and treated in the emergency department for something called terminal ileitis. This is a infection/inflammation of part of your bowel. To fully assess this problem you need to see a ruby software developer. Gastroenterology contact information will be within this packet. Please take antibiotics as prescribed. Please be careful with extra heavy lifting as these antibiotics may make your tendons week. Please return to the emergency room for any worsening symptoms. Prescriptions: Ketorolac Tromethamine [Toradol 10 mg Tablet] 10 mg PO Q8HP PRN #24 tablet PRN Reason: Levofloxacin [Levaquin 750 mg Tablet] 750 mg PO DAILY #10 tablet Metronidazole [Flagyl 500 mg Tablet] 500 mg PO BID #14 tablet Referrals: IMTIAZ HERNANDEZ MD [ACTIVE STAFF] - Follow up as needed
[2018-01-22 10:56] LABS: ABSOLUTE EOSINOPHILS # (AUTO) 0.2 10^3/uL (0.0-0.6); ABSOLUTE MONOCYTES (AUTO) 0.7 10^3/uL (0.1-1.4); BASOPHILS % (AUTO) 0.3 % (0-2); EOSINOPHILS % (AUTO) 2.5 % (0-6); HEMATOCRIT 39.5 % (37.9-51.0); HEMOGLOBIN 13.3 g/dL (13.5-17.0); LYMPHOCYTES % (AUTO) 12.3 % (13-45); MEAN CORPUSCULAR HEMOGLOBIN 27.6 pg (27.0-33.4); MEAN CORPUSCULAR HGB CONC 33.6 g/dL (32.0-36.0); MEAN CORPUSCULAR VOLUME 82 fl (80-97); MONOCYTES % (AUTO) 9.2 % (3-13); PLATELET COUNT 704 10^3/uL (150-450); RED BLOOD COUNT 4.81 10^6/uL (4.35-5.55); RED CELL DISTRIBUTION WIDTH 15.2 % (11.5-14.0); SEGMENTED NEUTROPHILS % (AUTO) 75.7 % (42-78); TOTAL CELLS COUNTED % (AUTO) 100 %; WHITE BLOOD COUNT 7.9 10^3/uL (4.0-10.5)
[2018-01-22 11:11] LABS: ALANINE AMINOTRANSFERASE 13 U/L (21-72); ALBUMIN 3.6 g/dL (3.5-5.0); ALKALINE PHOSPHATASE 83 U/L (38-126); ANION GAP 12 (5-19); ASPARTATE AMINO TRANSFERASE 15 U/L (17-59); BILIRUBIN,DIRECT 0.2 mg/dL (0.0-0.4); BILIRUBIN,TOTAL 0.4 mg/dL (0.2-1.3); BLOOD UREA NITROGEN 10 mg/dL (7-20); CALCIUM 9.8 mg/dL (8.4-10.2); CARBON DIOXIDE 26 mmol/L (22-30); CHLORIDE 102 mmol/L (98-107); GLUCOSE 137 mg/dL (75-110); LIPASE 13.4 U/L (23-300); POTASSIUM 5.1 mmol/L (3.6-5.0); TOTAL PROTEIN 6.8 g/dL (6.3-8.2)
--- NOTE | 2018-01-22 11:25 | RADIOLOGY REPORT (SQ) ---
EXAM DESCRIPTION: CT ABD/PELVIS WITH IV ONLY COMPLETED DATE/TIME: 01/22/2018 11:00 am REASON FOR STUDY: RLQ abdominal pain COMPARISON: 05/30/2017 TECHNIQUE: CT scan of the abdomen and pelvis performed using helical scanning technique with dynamic intravenous contrast injection. No oral contrast. Images reviewed with lung, soft tissue, and bone windows. Reconstructed coronal and sagittal MPR images reviewed. Delayed images for evaluation of the urinary system also acquired. All images stored on PACS. All CT scanners at this facility use dose modulation, iterative reconstruction, and/or weight based d osing when appropriate to reduce radiation dose to as low as reasonably achievable (ALARA). [facility]: Dose Right [facility]: CareDose [facility]: Dose Right [facility]: Teradose 4D [facility]: Money Toolkit CONTRAST TYPE AND DOSE: contrast/concentration: Isovue 350.00 mg/ml; Total Contrast Delivered: 89.0 ml; Total Saline Delivered: 66.0 ml 89 mL IV of Omnipaque 350- low osmolar. RENAL FUNCTION: None required. The patient is less than 50 years old. RADIATION DOSE: CT Rad equipment meets quality standard of care and radiation dose reduction techniq ues were employed. CTDIvol: 5.5 - 7.3 mGy. DLP: 702 mGy-cm.. LIMITATIONS: None. FINDINGS: LOWER CHEST: No significant findings. No nodules or infiltrates. LIVER: Normal size. No masses. No dilated ducts. Unchanged subcentimeter hypodensity within the sup erior right hepatic lobe, likely of benign etiology. SPLEEN: Normal size. No focal lesions. PANCREAS: No masses. No significant calcifications. No adjacent inflammation or peripancreatic fluid collections. Pancreatic duct not dilated. GALLBLADDER: No identified stones by CT criteria. No inflammatory changes to suggest cholecystitis. ADRENAL GLANDS: No significant masses or asymmetry. RIGHT KIDNEY AND URETER: No solid masses. No significant calcifications. No hydronephrosis or hyd roureter. LEFT KIDNEY AND URETER: No solid masses. No significant calcifications. No hydronephrosis or hydr oureter. AORTA AND VESSELS: No aneurysm. No dissection. Renal arteries, SMA, celiac without stenosis. RETROPERITONEUM: No retroperitoneal adenopathy, hemorrhage or masses. BOWEL AND PERITONEAL CAVITY: Large large ill-defined area of soft tissue within the right lower quad rant of the abdomen in the expected region of the ascending colon (series 3, image 53; series 601, im age 25). Evaluation is difficult due to paucity of intra- abdominal fat. This is located in this s naomi region of the patient's prior internal hernia. No dilated loops of bowel. Small amount of free f luid within the abdomen. No free air. APPENDIX: Not visualized. PELVIS: Urinary bladder is collapsed. No masses. Trace pelvic free fluid. ABDOMINAL WALL: No masses. No hernias. BONES: No significant or acute findings. OTHER: No other significant finding. IMPRESSION: 1. Large large ill-defined area of soft tissue within the right lower quadrant of the abdomen in the expected region of the ascending colon, in the area the patient's prior internal hernia. Evaluation is difficult due to the paucity of intra- abdominal fat. Recurrent internal hernia remains in the di fferential. Repeat CT with enteric contrast may be of benefit. 2. Small amount of free fluid within the abdomen/pelvis, likely reactive TECHNICAL DOCUMENTATION: JOB ID: [id number] Quality ID # [id number]: Final reports with documentation of one or more dose reduction techniques (e.g., Au tomated exposure control, adjustment of the mA and/or kV according to patient size, use of iterative reconstruction technique) 2010 [employer]- All Rights Reserved Reading location - IP/workstation name: [email or web address]
--- NOTE | 2018-01-22 15:37 | RADIOLOGY REPORT (SQ) ---
EXAM DESCRIPTION: CT ABD/PELVIS ORAL ONLY COMPLETED DATE/TIME: 01/22/2018 3:03 pm REASON FOR STUDY: RLQ pain COMPARISON: CT abdomen and pelvis with intravenous contrast 01/22/2018. CT abdomen and pelvis 018. TECHNIQUE: CT scan of the abdomen and pelvis performed with oral contrast only. Images reviewed with lung, soft tissue, and bone windows. Reconstructed coronal and sagittal MPR images reviewed. All brent ges stored on PACS. All CT scanners at this facility use dose modulation, iterative reconstruction, and/or weight based d osing when appropriate to reduce radiation dose to as low as reasonably achievable (ALARA). [facility]: Dose Right [facility]: CareDose [facility]: Dose Right [facility]: Teradose 4D [facility]: Smart Technologies RADIATION DOSE: CT Rad equipment meets quality standard of care and radiation dose reduction techniq ues were employed. CTDIvol: 5.5 mGy. DLP: 311 mGy-cm.mGy. LIMITATIONS: None. FINDINGS: LOWER CHEST: No consolidation or pleural effusion. NON-CONTRASTED LIVER, SPLEEN, ADRENALS: Evaluation limited by lack of IV contrast. No identified sign ificant masses. PANCREAS: No masses. No peripancreatic inflammatory changes. GALLBLADDER: No identified stones by CT criteria. No inflammatory changes to suggest cholecystitis. RIGHT KIDNEY AND URETER: Excretion of intravenous contrast from prior CT. No significant calcificat ions. No hydronephrosis or hydroureter. LEFT KIDNEY AND URETER: Excretion of intravenous contrast from prior CT. No significant calcificati ons. No hydronephrosis or hydroureter. AORTA AND RETROPERITONEUM: No abdominal aortic aneurysm. No retroperitoneal masses or hemorrhage. BOWEL AND PERITONEAL CAVITY: No evidence of bowel obstruction. The oral contrast has reached the rec reg. There is heterogeneous soft tissue thickening at the right lower quadrant with wall thickening at the terminal ileum and cecum. There is adjacent trace ascites. APPENDIX: Normal. PELVIS, BLADDER, AND ABDOMINAL WALL:The urinary bladder is partially distended with excreted intraven ous contrast. No obvious pelvic mass or free fluid. BONES: No acute findings. IMPRESSION: No bowel obstruction. Heterogeneous soft tissue density at the right lower quadrant wit h wall thickening at the terminal ileum and cecum and with adjacent trace ascites, may be secondary t o hematoma or mass. Evaluation with colonoscopy may be worthwhile. Surgical consult recommended. COMMENT: Pertinent findings on the imaging study reported as a CRITICAL RESULT to PA-C JESSIELYN WO OLBRIGHT at15:20 hrs on 01/22/2018. Category of Critical Result: Heterogeneous soft tissue density at the right lower quadrant with wall thickening at the terminal ileum and cecum and with adjacent trace ascites, may be secondary to hemat linda or mass. Evaluation with colonoscopy may be worthwhile. Surgical consult recommended. Quality ID # [id number]: Final reports with documentation of one or more dose reduction techniques (e.g., Au tomated exposure control, adjustment of the mA and/or kV according to patient size, use of iterative reconstruction technique) TECHNICAL DOCUMENTATION: JOB ID: [id number] [employer]- All Rights Reserved Reading location - IP/workstation name: [email or web address]
[2018-01-22 17:47] VITALS: BP 151/78
--- NOTE | 2018-01-22 20:08 | PDOC CONSULTATION ---
Consultation Consult Date: 01/22/18 Consult reason:: Abdominal pain, terminal ileitis. History of Present Illness History of Present Illness: ELOISE FLETCHER is a 28 year old male seen in consultation at the request of the emergency room physician. This is a patient with chronic right lower quadrant abdominal pain for the last 1 year. The patient has a history of a negative exploratory laparotomy for similar symptoms 7 months ago. The patient reports increasing right lower quadrant pain and diarrhea over the last 3 days. He reports feeling similar to his previous hospital stay in May, but less severe. At worst, his pain is 6 out of 10. The patient denies any nausea, vomiting, fevers, chills, headache, anorexia, fatigue, chest pain, shortness of breath, hematochezia, melena, hematemesis. Movement and palpation make his pain worse, nothing makes it better. He denies any family history of Crohn's disease or ulcerative colitis. Past Surgical History Past Surgical History: Reports: Other - Umbilical hernia, open, as a child. Negative exploratory laparotomy. Social History Lives with: Family Smoking Status: Current Every Day Smoker Family History Family History: Reviewed & Not Pertinent Parental Family History Reviewed: Yes Children Family History Reviewed: Yes Sibling(s) Family History Reviewed.: Yes Medication/Allergy Home Medications: Ketorolac Tromethamine [Toradol 10 mg Tablet] 10 mg PO Q8HP PRN #24 tablet 01/22 Levofloxacin [Levaquin 750 mg Tablet] 750 mg PO DAILY #10 tablet 01/22/18 Metronidazole [Flagyl 500 mg Tablet] 500 mg PO BID #14 tablet 01/22/18 Allergies/Adverse Reactions: No Known Allergies Allergy (Verified 01/22/18 09:43) Review of Systems Constitutional: ABSENT: anorexia, chills, fatigue, fever(s), headache(s), night sweats Eyes: ABSENT: visual disturbances Ears: ABSENT: hearing changes Cardiovascular: ABSENT: chest pain, palpitations Respiratory: ABSENT: cough, dyspnea Gastrointestinal: PRESENT: abdominal pain, bloating, diarrhea Genitourinary: ABSENT: dysuria Integumentary: ABSENT: pruritus, rash Neurological: ABSENT: abnormal movements, abnormal speech, confusion, convulsions, dizziness Psychiatric: ABSENT: anxiety, depression Endocrine: ABSENT: cold intolerance, heat intolerance Hematologic/Lymphatic: ABSENT: easy bleeding, easy bruising Physical Exam Vital Signs: Temp Pulse Resp BP Pulse Ox 98 F 70 18 151/78 H 98 01/22/18 17:44 01/22/18 17:44 01/22/18 17:44 01/22/18 17:44 01/22/18 17:44 Intake & Output 01/21/18 01/22/18 01/23/18 06:59 06:59 06:59 Intake Total 1999 Balance 1999 Weight 77.9 kg General appearance: PRESENT: no acute distress Head exam: PRESENT: atraumatic, normocephalic Eye exam: PRESENT: EOMI, PERRLA. ABSENT: scleral icterus Mouth exam: PRESENT: moist, neck supple Teeth exam: ABSENT: poor dentation Neck exam: ABSENT: meningismus, tenderness, thyromegaly, tracheal deviation Respiratory exam: PRESENT: clear to auscultation arabella, unlabored. ABSENT: chest wall tenderness, tachypnea Cardiovascular exam: PRESENT: RRR Pulses: PRESENT: normal radial pulses GI/Abdominal exam: PRESENT: firm - Firm area in the right lower quadrant, consistent with intra-abdominal inflammatory phlegmon, soft, tenderness - Right lower quadrant. ABSENT: rebound, rigid Rectal exam: PRESENT: deferred Extremities exam: ABSENT: clubbing Musculoskeletal exam: ABSENT: deformity Neurological exam: PRESENT: alert, awake, oriented to person, oriented to place , oriented to time, oriented to situation, CN II-XII grossly intact Psychiatric exam: ABSENT: agitated, anxious, depressed Focused psych exam: ABSENT: delusional Skin exam: ABSENT: cyanosis, erythema, jaundice Results Laboratory Results: 01/22/18 10:26 01/22/18 10:26 01/22/18 01/22/18 01/22/18 10:05 10:26 10:26 WBC 7.9 RBC 4.81 Hgb 13.3 L Hct 39.5 MCV 82 MCH 27.6 MCHC 33.6 RDW 15.2 H Plt Count 704 H Seg Neutrophils % 75.7 Lymphocytes % 12.3 L Monocytes % 9.2 Eosinophils % 2.5 Basophils % 0.3 Absolute Neutrophils 6.0 Absolute Lymphocytes 1.0 Absolute Monocytes 0.7 Absolute Eosinophils 0.2 Absolute Basophils 0.0 Sodium 140.0 Potassium 5.1 H Chloride 102 Carbon Dioxide 26 Anion Gap 12 BUN 10 Creatinine 0.80 Est GFR ( Amer) > 60 Est GFR (Non-Af Amer) > 60 Glucose 137 H Calcium 9.8 Total Bilirubin 0.4 AST 15 L ALT 13 L Alkaline Phosphatase 83 Total Protein 6.8 Albumin 3.6 Lipase 13.4 L Urine Color YELLOW Urine Appearance SLIGHTLY-CLOUDY Urine pH 6.0 Ur Specific [place] 1.027 Urine Protein 30 H Urine Glucose (UA) NEGATIVE Urine Ketones NEGATIVE Urine Blood NEGATIVE Urine Nitrite NEGATIVE Ur Leukocyte Esterase TRACE H Urine WBC (Auto) 3 Urine RBC (Auto) 4 Impressions: Abdomen/Pelvis CT 01/22/18 12:01 IMPRESSION: No bowel obstruction. Heterogeneous soft tissue density at the right lower quadrant with wall thickening at the terminal ileum and cecum and with adjacent trace ascites, may be secondary to hematoma or mass. Evaluation with colonoscopy may be worthwhile. Surgical consult recommended. Assessment & Plan - Diagnosis (1) Terminal ileitis Qualifiers: Digestive disease complication type: unspecified complication Qualified Code(s): K50.019 - Crohn's disease of small intestine with unspecified complications Is this a current diagnosis for this admission?: Yes - Plan Summary Plan Summary: This is a 28-year-old male with recurrent right lower quadrant abdominal pain of unknown origin. The patient had a negative laparotomy for similar symptoms and CT findings 7 months ago. I have reviewed the patient's IV contrasted study , as well as his oral contrasted study (films and reports). The patient has an area in the right lower quadrant with inflammation present. It appears to be terminal ileitis. This finding is evident on physical exam. He has no obvious cecal inflammation or appendiceal inflammation. I do not believe the patient is exhibiting signs of appendicitis. Personally, I believe his symptoms to be more consistent with Crohn's disease or an infectious process. At this time, I do not see any utility in surgical intervention. I have recommended GI evaluation. This has been discussed with the emergency room staff. Disposition per emergency room physician.
== END 2018-01-22 17:43 | disposition home or self-care (01) ==
LOC: ER 09:39
DX: K50.019 Crohn's disease of small intestine with unspecified complications (principal); R10.31 Right lower quadrant pain; R10.11 Right upper quadrant pain; R63.0 Anorexia; F17.210 Nicotine dependence, cigarettes, uncomplicated
CPT/HCPCS: 99285; 96360; 36415; 83690; 85025; 80053; 81001; 74176; 74177; J1885; J7030

== ENCOUNTER 2018-04-08 01:54 | Emergency (ER) | payer BC ==
[2018-04-08] MEDS ORDERED: NORMAL SALINE 1000 ML 1,000 ML IV ONE ×2 (02:11→02:45)
[2018-04-08] MEDS ORDERED: ACETAMINOPHEN 325 MG TABLET PO ONE (02:14)
--- NOTE | 2018-04-08 02:17 | ER Document Report ---
ED General - General Chief Complaint: Abdominal Pain Stated Complaint: CHILLS Time Seen by Provider: 04/08/18 02:04 Notes: Patient is a 28-year-old male that comes to the emergency department for chief complaint of shaking chills. He comes by EMS. He states that he has been having abdominal pain for the past year, he went and was evaluated at [facility] earlier today for a hard area in his abdomen, he states that he was told that there is a mass at the end of his esophagus that he was discharged and told to follow-up for, he states that after he got home he started having shaking chills. He denies nausea, vomiting. He states he has vague sensation of shortness of breath. He denies pain in his chest, headache. He denies vomiting or diarrhea. He states his abdomen has some mild tenderness but it is much less severe than the pain that prompted him to go to get it evaluated earlier today. He denies any daily medications. He smokes, reports rare alcohol, denies recreational drugs. Past medical history of umbilical hernia repair as a child and an exploratory abdominal surgery as an adult for a possible hernia. TRAVEL OUTSIDE OF THE [place] IN LAST 30 DAYS: No - Related Data Allergies/Adverse Reactions: No Known Allergies Allergy (Verified 01/22/18 09:43) Past Medical History - General Information source: Patient - Social History Smoking Status: Current Every Day Smoker Smoking Education Provided: Yes - <3 min Frequency of alcohol use: Occasional Drug Abuse: None Lives with: Family Family History: Reviewed & Not Pertinent Renal/ Medical History: Denies: Hx Peritoneal Dialysis Past Surgical History: Reports: Hx Abdominal Surgery - exploratory lap, Other - Umbilical hernia, open, as a child. Negative exploratory laparotomy. - Immunizations Hx Diphtheria, Pertussis, Tetanus Vaccination: Yes Review of Systems - Review of Systems Constitutional: See HPI EENT: No symptoms reported Cardiovascular: No symptoms reported Respiratory: See HPI Gastrointestinal: See HPI Genitourinary: No symptoms reported Male Genitourinary: No symptoms reported Musculoskeletal: No symptoms reported Skin: No symptoms reported Hematologic/Lymphatic: No symptoms reported Neurological/Psychological: No symptoms reported Physical Exam - Vital signs Vitals: Resp BP Pulse Ox 26 H 129/56 H 99 04/08/18 01:59 04/08/18 01:59 04/08/18 01:59 - Notes Notes: GENERAL: Alert, interacts well. No acute distress. HEAD: Normocephalic, atraumatic. EYES: Pupils equal, round, and reactive to light. Extraocular movements intact. ENT: Oral mucosa dry, tongue midline. Oropharynx unremarkable. Airway patent. Nares patent, no nasal septal hematoma, TM's intact. NECK: Full range of motion. Supple. Trachea midline. LUNGS: Clear to auscultation bilaterally, no wheezes, rales, or rhonchi. No respiratory distress. HEART: Marked tachycardia, normal rhythm, no murmur. ABDOMEN: There is a small vertical mid abdominal scar, below this there is a hardened area at the umbilicus which is tender, there is no erythema or abnormal heat to the area. Remaining abdomen is benign. GENITOURINARY: Deferred EXTREMITIES: Moves all 4 extremities spontaneously. No edema, normal radial and dorsalis pedis pulses bilaterally. No cyanosis. BACK: no cervical, thoracic, lumbar midline tenderness. No saddle anesthesia, normal distal neurovascular exam. NEUROLOGICAL: Alert and oriented x3. Normal speech. [cranial nerves II through XII grossly intact]. PSYCH: Normal affect, normal mood. Patient is calm and cooperative. SKIN: Somewhat flushed, hot to the touch. No rash noted. Course - Re-evaluation Re-evalutation: Patient now tells me that he also had a blood transfusion at [facility]. On examination he does not have grossly bloody stool but it is positive for with a Hemoccult. Patient states his last 2 stools were not grossly bloody. He has a very hard mid abdomen but it does not feel like an incarcerated hernia. Patient does not appear to be in pain/distress but he does appear ill. He was found to be febrile at 100.5, he is tachycardic in the 130s, he is not hypotensive. Septic workup was initiated. CBC shows leukopenia at 3.5, hemoglobin is 8.2. Chemistry is nonspecific, elevated alk phos, low bicarbonate at 17. Lactic acid is 5.9. He is being broadly covered for sepsis with vancomycin and Zosyn because of the elevated lactic acid, fever, tachycardia. 2 large-bore 18- gauges in place. Giving IV fluids. Informed Dr. Trinidad. 04/08/18 02:50 CT obtained from [facility] from this morning, shows impression reading large upper abdominal mass that originates from either the the pancreas or the third portion of the duodenum. I spoke with patient. Because of his large abdominal mass, GI bleed, and sepsis he will need tertiary care. Discussed options. Patient requesting [facility]. Called and spoke with radiologist, Dr. Márquez. Discussed how patient had a previous CAT scan, discussed acute abdominal series, no acute findings noted, does not show free air. Nurse reported to me that patient's temperature is now 103.1 despite 975 mg of Tylenol. Giving Toradol. He has IV fluids and antibiotics infusing. Blood pressure is 108/51 with map of 67. 04/08/18 03:[address] Fletcher, wash box operator at [facility], patient will be accepted for transfer. 04/08/18 03:45 Blood pressure 98/56. Heart rate of 132, pulse ox 98% on room air, respiratory rate 19, good capillary refill. No ground transport available until sometime after shift change per report given to me. Blood transfusion pending. Will fly the patient. Discussed with Dr. Trinidad. 04/08/18 04:15 Transport team is here already. Blood pressure 96/56. Heart rate unchanged. No additional complaints. Patient alert and with no current complaints. Stable for transport. - Vital Signs Vital signs: Temp Pulse Resp BP Pulse Ox 100.4 F 148 H 25 H 93/51 L 94 04/08/18 04:00 04/08/18 02:00 04/08/18 04:11 04/08/18 04:11 04/08/18 04:11 - Laboratory Result Diagrams: 04/08/18 02:06 04/08/18 02:06 Laboratory results interpreted by me: 04/08/18 04/08/18 04/08/18 02:06 02:06 02:06 WBC 3.5 L RBC 3.27 L Hgb 8.2 L Hct 24.7 L MCV 76 L MCH 25.2 L RDW 18.5 H Plt Count 587 H PT VBG pH VBG pCO2 Sodium 135.7 L Carbon Dioxide 17 L Lactic Acid 5.9 H ALT 19 L Alkaline Phosphatase 178 H Total Protein 5.8 L Albumin 3.0 L Lipase < 10.0 L Crossmatch 04/08/18 04/08/18 04/08/18 02:06 02:20 03:19 WBC RBC Hgb Hct MCV MCH RDW Plt Count PT 17.8 H VBG pH 7.43 H VBG pCO2 32.8 L Sodium Carbon Dioxide Lactic Acid ALT Alkaline Phosphatase Total Protein Albumin Lipase Crossmatch See Detail - EKG Interpretation by Me Additional EKG results interpreted by me: EKG interpretation by me shows sinus tachycardia at a rate of 145, DE of 120, QTC of 398. Normal axis. No ischemic T waves or ST segment changes in consecutive leads noted. Critical Care Note - Critical Care Note Total time excluding time spent on procedures (mins): 40 - SIRS, abdominal mass, GI bleed Comments: Please allow 40 minutes of critical care time for evaluation and management of patient with abdominal mass, GI bleed, tachycardia, fever, elevated lactic acid. Interventions including pain management, IV fluids, broad-spectrum antibiotics. Time spent obtaining records from tertiary center, discussing with the radi ologist, discussion and transfer to tertiary center. Time spent with multiple re-evaluations and discussion with patient. Discharge - Discharge Clinical Impression: SIRS (systemic inflammatory response syndrome), Tachycardia Abdominal mass Qualifiers: Abdominal location: unspecified location Qualified Code(s): R19.00 - Intra- abdominal and pelvic swelling, mass and lump, unspecified site GI bleed Qualifiers: GI bleed type/associated pathology: unspecified gastrointestinal hemorrhage type Qualified Code(s): K92.2 - Gastrointestinal hemorrhage, unspecified Condition: Serious Disposition: [facility] Referrals: DAYANARA CASAS MD [Primary Care Provider] - Follow up as needed
[2018-04-08 02:22] LABS: HEMATOCRIT 24.7 % (37.9-51.0); HEMOGLOBIN 8.2 g/dL (13.5-17.0); MEAN CORPUSCULAR HEMOGLOBIN 25.2 pg (27.0-33.4); MEAN CORPUSCULAR HGB CONC 33.3 g/dL (32.0-36.0); MEAN CORPUSCULAR VOLUME 76 fl (80-97); PLATELET COUNT 587 10^3/uL (150-450); RED BLOOD COUNT 3.27 10^6/uL (4.35-5.55); RED CELL DISTRIBUTION WIDTH 18.5 % (11.5-14.0); WHITE BLOOD COUNT 3.5 10^3/uL (4.0-10.5)
[2018-04-08 02:40] LABS: ABSOLUTE LYMPHOCYTES# (MANUAL) 0.8 10^3/uL (0.5-4.7); ABSOLUTE MONOCYTES # (MANUAL) 0.1 10^3/uL (0.1-1.4); ABSOLUTE NEUTROPHILS# (MANUAL) 2.6 10^3/uL (1.7-8.2); BAND NEUTROPHILS % (MANUAL) 4 % (3-5); BASOPHILS % (MANUAL) 0 % (0-2); EOSINOPHILS % (MANUAL) 2 % (0-6); LYMPHOCYTES % (MANUAL) 22 % (13-45); MONOCYTES % (MANUAL) 3 % (3-13); NUCLEATED RED BLOOD CELLS 3 /100 WBC (0); SEGMENTED NEUTROPHILS % (MAN) 69 % (42-78); TOTAL CELLS COUNTED 100
[2018-04-08 02:40] LABS: VENOUS BLOOD BASE EXCESS -2.5 mmol/L; VENOUS BLOOD HCO3 21.3 mmol/L (20-32); VENOUS BLOOD PCO2 32.8 mmHg (35-63); VENOUS BLOOD PH 7.43 (7.30-7.42)
[2018-04-08] MEDS ORDERED: FENTANYL CITRATE INJ/PF 100 MCG/2 ML AMPUL IV ONE (02:40)
[2018-04-08] MEDS ORDERED: ONDANSETRON HCL INJ/PF 4 MG/2 ML SDV IV ONE (02:40)
[2018-04-08 02:41] LABS: ALANINE AMINOTRANSFERASE 19 U/L (21-72); ALKALINE PHOSPHATASE 178 U/L (38-126); ANION GAP 16 (5-19); ANISOCYTOSIS 2+; ASPARTATE AMINO TRANSFERASE 21 U/L (17-59); BILIRUBIN,DIRECT 0.4 mg/dL (0.0-0.4); BILIRUBIN,TOTAL 0.9 mg/dL (0.2-1.3); BLOOD UREA NITROGEN 14 mg/dL (7-20); CALCIUM 8.7 mg/dL (8.4-10.2); CARBON DIOXIDE 17 mmol/L (22-30); CHLORIDE 103 mmol/L (98-107); GLUCOSE 104 mg/dL (75-110); HYPOCHROMASIA SLIGHT; OVALOCYTES SLIGHT; PLATELET COMMENT INCREASED; POIKILOCYTOSIS SLIGHT; POLYCHROMASIA SLIGHT; POTASSIUM 4.4 mmol/L (3.6-5.0); SODIUM 135.7 mmol/L (137-145); TOTAL PROTEIN 5.8 g/dL (6.3-8.2); TOXIC VACUOLATION PRESENT
[2018-04-08 02:42] LABS: LIPASE < 10.0 U/L (23-300)
[2018-04-08] MEDS ORDERED: VANCOMYCIN HCL INJ 1000 MG VIAL IV ONE (02:43)
[2018-04-08] MEDS ORDERED: PIPERACILLIN/TAZOBACTAM 3.375 GM VIAL IV ONE (02:44)
[2018-04-08] MEDS ORDERED: KETOROLAC TROMETHAMINE INJ/PF 30 MG/1 ML SDV IV ONE (03:16)
--- NOTE | 2018-04-08 03:16 | RADIOLOGY REPORT (SQ) ---
EXAM DESCRIPTION: XR ABDOMEN SUPINE AND ERECT WITH CHEST (ABD ACUTE SERIES) COMPLETED DATE/TME: 04/08/2018 02:11 CLINICAL HISTORY: 28 years, Male, abd pain, chills, shortness of breath COMPARISON: CT 01/14/2018 NUMBER OF VIEWS: 4 TECHNIQUE: Upright chest with supine and erect views of the abdomen LIMITATIONS: None. FINDINGS: The heart size is normal. Lungs are clear. No pneumothorax. No free air under the hemidiaphragms. Nonspecific bowel gas pattern. Residual contrast within the colon. No free air. Soft tissue mass seen on prior CT is not appreciated on the plain film however there are a few nondilated air-filled loops of small bowel which may reflect mild ileus. IMPRESSION: No acute cardiopulmonary process. Residual contrast within colon. Possible mild ileus. No free air copyright 2010 [employer]- All Rights Reserved
[2018-04-08 03:23] LABS: INTERNATIONAL RATION (INR) 1.39; PARTIAL THROMBOPLASTIN TIME 26.6 SEC (23.5-35.8); PROTHROMBIN TIME 17.8 SEC (11.4-15.4)
[2018-04-08] MEDS ORDERED: NORMAL SALINE 250 ML IV PRN ×2 (03:43)
[2018-04-08 04:28] VITALS: BP 93/51
--- NOTE | 2018-04-08 09:09 | EKG REPORT ---
SEVERITY:- ABNORMAL ECG - SINUS TACHYCARDIA NONSPECIFIC T ABNORMALITIES, DIFFUSE LEADS : Confirmed by: Jorge Luis Berry MD 08-Apr-2018 09:08:08
== END 2018-04-08 04:34 | disposition short-term general hospital (02) ==
LOC: ER 01:54
DX: R65.10 Systemic inflammatory response syndrome (SIRS) of non-infectious origin without acute organ dysfunction (principal); R19.00 Intra-abdominal and pelvic swelling, mass and lump, unspecified site; K92.2 Gastrointestinal hemorrhage, unspecified; R00.0 Tachycardia, unspecified; R10.9 Unspecified abdominal pain; F17.200 Nicotine dependence, unspecified, uncomplicated
CPT/HCPCS: 93005; 36415; 87040; 83690; 85025; 85610; 85730; 87077; 80053; 82803; 83605; 74022; 93010; J3010; J1885; J2405; J7030; J3370; J2543

== ENCOUNTER 2018-05-16 10:37 | Day surgery (SDC) | payer BC ==
[~2018-05-16 10:37] MED LIST: CEFAZOLIN 1 GM/D5W RTU 1 GM/50 ML RTUPB IV PRN; DIAZEPAM 5 MG TABLET PO PRN; OXYCODONE-ACETAMINOPHEN 5-325 MG TABLET PO PRN
[2018-05-16] MEDS ORDERED: CEFAZOLIN 1 GM/D5W RTU 1 GM/50 ML RTUPB IV ONE (10:59)
--- NOTE | 2018-05-16 11:11 | RADIOLOGY REPORT (SQ) ---
EXAM DESCRIPTION: CHEST SINGLE VIEW COMPLETED DATE/TIME: 05/16/2018 11:03 am REASON FOR STUDY: PREOP COMPARISON: None. EXAM PARAMETERS: NUMBER OF VIEWS: One view. TECHNIQUE: Single frontal radiographic view of the chest acquired. RADIATION DOSE: NA LIMITATIONS: None. FINDINGS: LUNGS AND PLEURA: No opacities, masses or pneumothorax. No pleural effusion. MEDIASTINUM AND HILAR STRUCTURES: No masses. Contour normal. HEART AND VASCULAR STRUCTURES: Heart normal in size. Normal vasculature. BONES: No acute findings. HARDWARE: None in the chest. OTHER: No other significant finding. IMPRESSION: NO ACUTE RADIOGRAPHIC FINDING IN THE CHEST. TECHNICAL DOCUMENTATION: JOB ID: [id number] [employer]- All Rights Reserved Reading location - IP/workstation name: [email or web address]
[2018-05-16] MEDS ORDERED: OXYCODONE-ACETAMINOPHEN 5-325 MG TABLET ONE (11:40)
[2018-05-16] MEDS ORDERED: DIAZEPAM 5 MG TABLET ONE (11:40)
[2018-05-16 11:47] LABS: HEMATOCRIT 31.2 % (37.9-51.0); MEAN CORPUSCULAR HEMOGLOBIN 23.9 pg (27.0-33.4); MEAN CORPUSCULAR HGB CONC 32.1 g/dL (32.0-36.0); MEAN CORPUSCULAR VOLUME 74 fl (80-97); PLATELET COUNT 450 10^3/uL (150-450); RED CELL DISTRIBUTION WIDTH 18.2 % (11.5-14.0); WHITE BLOOD COUNT 4.4 10^3/uL (4.0-10.5)
[2018-05-16 12:11] LABS: ANION GAP 7 (5-19); BLOOD UREA NITROGEN 7 mg/dL (7-20); CALCIUM 9.8 mg/dL (8.4-10.2); CARBON DIOXIDE 27 mmol/L (22-30); CHLORIDE 106 mmol/L (98-107); GLUCOSE 78 mg/dL (75-110); POTASSIUM 4.5 mmol/L (3.6-5.0); SODIUM 140.2 mmol/L (137-145)
[2018-05-16] MEDS ORDERED: MIDAZOLAM 2 MG/2 ML INJ ONE (13:31)
[2018-05-16] MEDS ORDERED: LIDOCAINE 0.5% INJ-PF (5 MG/ML) 50 ML SDV ONE (13:31)
[2018-05-16] MEDS ORDERED: FENTANYL CITRATE INJ/PF 100 MCG/2 ML AMPUL ONE (13:31)
[2018-05-16] MEDS ORDERED: BACITRACIN INJ 50,000 UNIT VIAL ONE (13:32)
--- NOTE | 2018-05-16 15:03 | Discharge Summary ---
Discharge Summary (SDC) - Discharge Final Diagnosis: Colon cancer. Date of Surgery: 05/16/18 Discharge Date: 05/16/18 Condition: Good Treatment or Instructions: Discharge home [after recovery per ASU criteria]. Diet , as tolerated, when fully awake advance as tolerated. Activities within moderation encouraged. Follow up in my office by appointment in about [1 week]. Call for appointment. Leave wounds [covered], [keep clean and dry, until office visit in 1 week]. Meds per med rec. Percocet. Hold of on school/work [until evaluation in office]. May shower [in 48 hrs], [try to keep operated area as dry as possible]. Prescriptions: Oxycodone HCl/Acetaminophen [Percocet 5-325 mg Tablet] 1 tab PO ASDIR PRN #15 tab PRN Reason: Referrals: DAYANARA CASAS MD [Primary Care Provider] - Discharge Diet: As Tolerated Respiratory Treatments at Home: Deep Breathing/Coughing Discharge Activity: Activity As Tolerated Report the Following to Your Physician Immediately: Shortness of Breath, Unusual Bleeding
--- NOTE | 2018-05-16 15:05 | Operative Report ---
Operative Report DATE OF SURGERY: 05/16/18 PREOPERATIVE DIAGNOSIS: Lung cancer. POSTOPERATIVE DIAGNOSIS: Lung cancer. OPERATION: 1. Ultrasound evaluation of the right internal jugular vein. 2. Put a cath insertion via real-time access in the right internal jugular vein. 3. Angiogram and interpretation. SURGEON: SAADIA GUILLEN RUBBER ROLLER GRINDER: None. ANESTHESIA: Moderate Sedation TISSUE REMOVED OR ALTERED: Not applicable. COMPLICATIONS: None. ESTIMATED BLOOD LOSS: 5 mL. INTRAOPERATIVE FINDINGS: Open satisfactory right internal jugular vein to support Port-A-Cath. Easy egress of blood and ingress of heparinized solution. Smooth flow of contrast through the catheter and inferior inferior portion of the superior vena cava. PROCEDURE: After obtaining informed consent, the patient was taken to the Inspecting Engineer and positioned supine. The [right] neck and chest were prepared with chlorhexidine and draped out with sterile linen. After the " universal timeout", in which it was verified that the patient continued to receive antibiotic, the procedure commenced. A steriley sheathed ultrasound probe was used to evaluate the [right] internal jugular vein. Local anesthesia was infiltrated adjacent to the probe. Access into the [right] internal jugular vein was obtained using a micropuncture needle, followed by micropuncture wire and then a micropuncture catheter. This was followed by introduction of a 0.035 guidewire the tip of which was placed down into the inferior vena cava . The port sites was marked , locally anesthetized and incision made. Dissection now proceeded to the deep subcutaneous subcutaneous tissues so that a pocket for the port was made. Meticulous hemostasis was secured and the catheter was tunneled between the 2 incisions. Proximally, the catheter was now positioned using a peel-away sheath. Distally the catheter was tailored to an appropriate length and then mated to the port using the contained fixating device. The port was now placed in the pocket and the catheter optimally positioned. The port was accessed with a León needle and an angiogram done under digital subtraction. The findings as dictated. With adequate and satisfactory positioning, the lumen of the chamber were irrigated with heparinized solution. The wounds were now closed using interrupted 3-0 PDS to the subcutaneous tissues and a continuous subcuticular suture of 4-0 Monocryl to the skin. These are reinforced with Steri-Strips over benzoin and then dressings applied. Copies of the dictated operative report for Dr. Saadia Espinoza MD.
--- NOTE | 2018-05-16 15:55 | RADIOLOGY REPORT (SQ) ---
EXAM DESCRIPTION: PORTACATH INSERTION COMPLETED DATE/TIME: 05/16/2018 3:17 pm REASON FOR STUDY: C18.2 COLON CA C18.2 MALIGNANT NEOPLASM OF ASCENDING COLON COMPARISON: None. FLUOROSCOPY TIME: Less than 0.1 minute. 25 images saved to PACS. TECHNIQUE: Intra-operative images acquired during surgical procedure to evaluate progress. NUMBER OF IMAGES: 25 images. LIMITATIONS: None. FINDINGS: Images of the chest acquired during catheter placement. IMPRESSION: IMAGE(S) OBTAINED DURING PROCEDURE. COMMENT: Quality ID [id number]: Final reports for procedures using fluoroscopy that document radiation exp osure indices, or exposure time and number of fluorographic images (if radiation exposure indices are not available) Please consult full operative report of the attending physician for description of the procedure. TECHNICAL DOCUMENTATION: JOB ID: [id number] [employer]- All Rights Reserved Reading location - IP/workstation name: [email or web address]
[2018-05-16 16:31] VITALS: BP 106/78
== END 2018-05-16 16:25 | disposition home or self-care (01) ==
LOC: CCL 10:37
PROVIDERS: ATTEND Surgery
DX: C18.2 Malignant neoplasm of ascending colon (principal); Z87.19 Personal history of other diseases of the digestive system; Z01.818 Encounter for other preprocedural examination
CPT/HCPCS: 36415; 85027; 80048; 36561; 76937; 77001; 71045; C1752; C1788; Q9967; J2250; J3490 ×2; J0690; J3010; J1644

== ENCOUNTER 2018-08-05 15:45 | Emergency (ER) | payer BC ==
[2018-08-05 15:54] VITALS: BP 146/85
[2018-08-05] MEDS ORDERED: ONDANSETRON HCL INJ/PF 4 MG/2 ML SDV IV ONE ×2 (16:02→17:41)
[2018-08-05] MEDS ORDERED: NORMAL SALINE 1000 ML 1,000 ML IV ONE (16:02)
--- NOTE | 2018-08-05 16:04 | ER Document Report ---
ED Medical Screen (RME) - General Chief Complaint: Vomiting Stated Complaint: VOMITING Time Seen by Provider: 08/05/18 16:00 Primary Care Provider: DAYANARA CASAS MD [Primary Care Provider] - Follow up as needed Mode of Arrival: Wheelchair Information source: Patient Notes: Patient is a 28-year-old male with colon cancer currently undergoing chemotherapy presenting to the emergency department with onset of vomiting that started approximately 3 hours prior to arrival. Patient reports he has vomited at least 5 times and feels very weak. Patient also reports excessive thirst. Patient denies any history of diabetes. Exam: Skin pale. Lung sounds clear and equal. Patient answering all questions but appears to be in moderate discomfort. I have greeted and performed a rapid initial assessment of this patient. A comprehensive ED assessment and evaluation of the patient, analysis of test results and completion of the medical decision making process will be conducted by additional ED providers. Dictation of this chart was performed using voice recognition software; therefore, there may be some unintended grammatical errors. TRAVEL OUTSIDE OF THE [place] IN LAST 30 DAYS: No - Related Data Allergies/Adverse Reactions: No Known Allergies Allergy (Verified 08/05/18 15:46) Past Medical History - Past Medical History Cardiac Medical History: Denies: Hx Coronary Artery Disease, Hx Heart Attack, Hx Hypertension Pulmonary Medical History: Denies: Hx Asthma, Hx Bronchitis, Hx COPD, Hx Pneumonia Neurological Medical History: Denies: Hx Cerebrovascular Accident, Hx Seizures Renal/ Medical History: Denies: Hx Peritoneal Dialysis Musculoskeltal Medical History: Denies Hx Arthritis Past Surgical History: Reports: Hx Abdominal Surgery - exploratory lap, Other - Umbilical hernia, open, as a child. Negative exploratory laparotomy. - Immunizations Hx Diphtheria, Pertussis, Tetanus Vaccination: Yes History of Influenza Vaccine for 12/2016 - 05/2017 Season: No Influenza Administration Date for 12/2016 - 05/2017 Season: 12/26/16 Physical Exam - Vital signs Vitals: Temp Pulse Resp BP Pulse Ox 97.5 F 93 20 146/85 H 100 08/05/18 15:51 08/05/18 15:51 08/05/18 15:51 08/05/18 15:51 08/05/18 15:51 Course - Vital Signs Vital signs: Temp Pulse Resp BP Pulse Ox 97.5 F 93 20 146/85 H 100 08/05/18 15:51 08/05/18 15:51 08/05/18 15:51 08/05/18 15:51 08/05/18 15:51 Doctor's Discharge - Discharge Referrals: DAYANARA CASAS MD [Primary Care Provider] - Follow up as needed
--- NOTE | 2018-08-05 16:15 | ER Document Report ---
ED General - General Chief Complaint: Vomiting Stated Complaint: VOMITING Time Seen by Provider: 08/05/18 16:00 Primary Care Provider: JENIFER HARDWICK MD [ACTIVE STAFF] - Follow up in 3-5 days DAYANARA CASAS MD [NO LOCAL MD] - Follow up in 3-5 days Mode of Arrival: Wheelchair Notes: Patient is a 28-year-old male with history of colon cancer that presents to the emergency department for chief complaint of nausea, vomiting and abdominal pain. Patient reports that he had several episodes of vomiting this morning, he did eat breakfast, but shortly after that started having significant vomiting. He states that he feels very weak at this time. He is on chemotherapy his last treatment was 3 weeks ago. He has a colostomy, he states he is noticed some blood from, he states that his been coming out and going back in on occasion more recently, is noticed blood associated, when he changed out his ostomy bag after taking a shower. He has been lightheaded, and just feels very weak. He denies having any chest pain, shortness of breath or difficulty breathing. Past Medical History: Colon cancer Past Surgical History: Colon resection and colostomy Social History: Admits to smoking cigarettes, denies alcohol or drug use, his oncologist is Dr. Hardwick Family History: Reviewed and noncontributory for presenting illness Allergies: Reviewed, see documented allergy list. REVIEW OF SYSTEMS: Other than noted above, the 12 point review of systems was reviewed with the patient and were negative, all pertinent findings are included in the HPI. PHYSICAL EXAMINATION: Vital signs reviewed, nursing noted reviewed. GENERAL: Patient is ill-appearing, appears uncomfortable HEAD: Atraumatic, normocephalic. EYES: Eyes appear normal, extraocular movements intact, sclera anicteric, conjunctiva are normal. ENT: nares patent, oropharynx clear without exudates. Moist mucous membranes. NECK: Normal range of motion, supple without lymphadenopathy LUNGS: Breath sounds clear to auscultation bilaterally and equal. No wheezes rales or rhonchi. HEART: Regular rate and rhythm without murmurs ABDOMEN: Soft, ostomy noted in the right lower quadrant of the abdomen, with some evisceration of the patient's bowel, there is oozing blood at the site as well, normoactive bowel sounds. No rebound, guarding, or rigidity. No masses appreciated. EXTREMITIES: Nontender, good range of motion, no pitting or edema. NEUROLOGICAL: No focal neurological deficits. Moves all extremities s pontaneously Motor and sensory grossly intact on exam. PSYCH: Flat affect, answering questions appropriately SKIN: Warm, Dry, normal turgor, no rashes or lesions noted on exposed skin TRAVEL OUTSIDE OF THE [place] IN LAST 30 DAYS: No - Related Data Allergies/Adverse Reactions: No Known Allergies Allergy (Verified 08/05/18 15:46) Past Medical History - General Information source: Patient - Social History Smoking Status: Never Smoker Family History: Reviewed & Not Pertinent Patient has suicidal ideation: No Patient has homicidal ideation: No - Past Medical History Cardiac Medical History: Denies: Hx Coronary Artery Disease, Hx Heart Attack, Hx Hypertension Pulmonary Medical History: Denies: Hx Asthma, Hx Bronchitis, Hx COPD, Hx Pneumonia Neurological Medical History: Denies: Hx Cerebrovascular Accident, Hx Seizures Renal/ Medical History: Denies: Hx Peritoneal Dialysis Musculoskeletal Medical History: Denies Hx Arthritis Past Surgical History: Reports: Hx Abdominal Surgery - exploratory lap, Other - Umbilical hernia, open, as a child. Negative exploratory laparotomy. - Immunizations Hx Diphtheria, Pertussis, Tetanus Vaccination: Yes Physical Exam - Vital signs Vitals: Temp Pulse Resp BP Pulse Ox 97.5 F 93 20 146/85 H 100 08/05/18 15:51 08/05/18 15:51 08/05/18 15:51 08/05/18 15:51 08/05/18 15:51 Course - Re-evaluation Re-evalutation: Patient seen and examined vital signs reviewed. Laboratory data and/or imaging were ordered as appropriate for the patient's presenting symptoms and complaint, with consideration of any critical or life threatening conditions that may be associated with their obtained history and exam as noted above. Patient was treated with IV fluids and Zofran Results were reviewed when available and demonstrated mild leukocytosis, and mild hypercalcemia, patient likely dehydrated, there was concern because his ostomy, is rather prolapsed, I did consult Dr. Prescott with general surgery, who came to see the patient, he did recommend prior to him arriving, to place ice over the ostomy, to help reduce it, which this was successful, came to see the patient at bedside, and inspected the patient's loop ileostomy, and it seemed to be functioning, recommended IV fluids, KUB reviewed, and nonobstructive bowel gas pattern was demonstrated, and recommend follow-up with his oncologist, patient has an appointment with chemotherapy on Tuesday. The patient was re-evaluated and was improved after IV fluids Evaluation was most consistent with vomiting, dehydration, patient be discharged with Zofran to take if needed, advised to return if his symptoms are not improving. Results were discussed with the patient at this point, after careful consideration I feel that that patient can be discharged from the emergency department, the patient was educated treatments and reasons to return to the emergency department based on their presumed diagnosis as noted above, they were advised to followup with a primary care physician in 2-3 days. Patient was agreeable to plan of care. *Note is created using voice recognition software and may contain spelling, syntax or grammatical errors. Laboratory 08/05/18 08/05/18 16:21 16:49 WBC 15.1 H RBC 5.98 H Hgb 14.9 Hct 46.4 MCV 78 L MCH 25.0 L MCHC 32.2 RDW 23.5 H Plt Count 312 Seg Neutrophils % 83.9 H Lymphocytes % 7.2 L Monocytes % 8.4 Eosinophils % 0.2 Basophils % 0.3 Absolute Neutrophils 12.7 H Absolute Lymphocytes 1.1 Absolute Monocytes 1.3 Absolute Eosinophils 0.0 Absolute Basophils 0.0 Sodium 143.8 Potassium 3.8 Chloride 106 Carbon Dioxide 23 Anion Gap 15 BUN 12 Creatinine 0.78 Est GFR ( Amer) > 60 Est GFR (Non-Af Amer) > 60 Glucose 128 H Calcium 10.9 H Total Bilirubin 0.5 Direct Bilirubin 0.2 Neonat Total Bilirubin Not Reportable Neonat Direct Bilirubin Not Reportable Neonat Indirect Bili Not Reportable AST 25 ALT 25 Alkaline Phosphatase 98 Total Protein 9.0 H Albumin 5.1 H KUB X-Ray 08/05/18 16:30 IMPRESSION: Radiopaque stool in the distal small bowel along the right lower quadrant ostomy. Grossly nonobstructive bowel gas pattern - Vital Signs Vital signs: Temp Pulse Resp BP Pulse Ox 97.5 F 93 20 146/85 H 100 08/05/18 15:51 08/05/18 15:51 08/05/18 15:51 08/05/18 15:51 08/05/18 16:21 - Laboratory Result Diagrams: 08/05/18 16:21 08/05/18 16:49 Laboratory results interpreted by me: 08/05/18 08/05/18 16:21 16:49 WBC 15.1 H RBC 5.98 H MCV 78 L MCH 25.0 L RDW 23.5 H Seg Neutrophils % 83.9 H Lymphocytes % 7.2 L Absolute Neutrophils 12.7 H Glucose 128 H Calcium 10.9 H Total Protein 9.0 H Albumin 5.1 H Discharge - Discharge Clinical Impression: Prolapse of ileostomy, Hypercalcemia, Dehydration Vomiting Qualifiers: Vomiting type: unspecified Vomiting Intractability: unspecified Nausea presence: with nausea Qualified Code(s): R11.2 - Nausea with vomiting, unspecified Leukocytosis Qualifiers: Leukocytosis type: unspecified Qualified Code(s): D72.829 - Elevated white blood cell count, unspecified Condition: Stable Disposition: HOME, SELF-CARE Instructions: Vomiting ([facility]) Additional Instructions: Please take the prescribed nausea medicine, every 4-6 hours if needed. Please follow-up with your oncologist, and your chemotherapy appointment as scheduled. If symptoms are worsening, you are not improving over the next 24 to 48 hours, do not hesitate to return to the emergency department immediately. Prescriptions: Ondansetron [Zofran Odt 4 mg Tablet] 1 tab PO Q8H PRN #15 tab.rapdis PRN Reason: For Nausea/Vomiting Referrals: DAYANARA CASAS MD [NO LOCAL MD] - Follow up in 3-5 days JENIFER HARDWICK MD [ACTIVE STAFF] - Follow up in 3-5 days
[2018-08-05 16:36] LABS: ABSOLUTE LYMPHOCYTES (AUTO) 1.1 10^3/uL (0.5-4.7); ABSOLUTE MONOCYTES (AUTO) 1.3 10^3/uL (0.1-1.4); ABSOLUTE NEUT (AUTO) 12.7 10^3/uL (1.7-8.2); BASOPHILS % (AUTO) 0.3 % (0-2); EOSINOPHILS % (AUTO) 0.2 % (0-6); HEMATOCRIT 46.4 % (37.9-51.0); HEMOGLOBIN 14.9 g/dL (13.5-17.0); LYMPHOCYTES % (AUTO) 7.2 % (13-45); MEAN CORPUSCULAR HGB CONC 32.2 g/dL (32.0-36.0); MEAN CORPUSCULAR VOLUME 78 fl (80-97); MONOCYTES % (AUTO) 8.4 % (3-13); PLATELET COUNT 312 10^3/uL (150-450); RED BLOOD COUNT 5.98 10^6/uL (4.35-5.55); RED CELL DISTRIBUTION WIDTH 23.5 % (11.5-14.0); SEGMENTED NEUTROPHILS % (AUTO) 83.9 % (42-78); TOTAL CELLS COUNTED % (AUTO) 100 %; WHITE BLOOD COUNT 15.1 10^3/uL (4.0-10.5)
--- NOTE | 2018-08-05 16:54 | RADIOLOGY REPORT (SQ) ---
EXAM DESCRIPTION: KUB/ABDOMEN (SINGLE VIEW) COMPLETED DATE/TIME: 08/05/2018 4:41 pm REASON FOR STUDY: VOMITING, HX OSTOMY COMPARISON: Abdominal films 03/29/2018 CT abdomen pelvis 01/22/2018 NUMBER OF VIEWS: One view. TECHNIQUE: Supine radiographic image of the abdomen acquired. LIMITATIONS: None. FINDINGS: BOWEL GAS PATTERN: Patient has a right lower quadrant ostomy. There is radiopaque stool i n the bowel adjacent to the ostomy. There is stool in the rectum. Stomach, small bowel decompressed. CALCIFICATIONS: No suspicious calcifications. SOFT TISSUES: No gross mass or suggestion of organomegaly. HARDWARE: Surgical clips in the right upper quadrant BONES: No acute fracture. No worrisome bone lesions. OTHER: No other significant finding. IMPRESSION: Radiopaque stool in the distal small bowel along the right lower quadrant ostomy. Gross ly nonobstructive bowel gas pattern TECHNICAL DOCUMENTATION: JOB ID: [id number] [employer]- All Rights Reserved Reading location - IP/workstation name: [email or web address]
[2018-08-05 16:57] LABS: ALANINE AMINOTRANSFERASE 25 U/L (21-72); ALBUMIN 5.1 g/dL (3.5-5.0); ALKALINE PHOSPHATASE 98 U/L (38-126); ANION GAP 15 (5-19); ASPARTATE AMINO TRANSFERASE 25 U/L (17-59); BILIRUBIN,DIRECT 0.2 mg/dL (0.0-0.4); BILIRUBIN,TOTAL 0.5 mg/dL (0.2-1.3); BLOOD UREA NITROGEN 12 mg/dL (7-20); CALCIUM 10.9 mg/dL (8.4-10.2); CARBON DIOXIDE 23 mmol/L (22-30); CHLORIDE 106 mmol/L (98-107); GLUCOSE 128 mg/dL (75-110); POTASSIUM 3.8 mmol/L (3.6-5.0); SODIUM 143.8 mmol/L (137-145)
[2018-08-05] MEDS ORDERED: RINGERS SOLUTION,LACTATED 1,000 ML IV ONE (17:31)
[2018-08-05] MEDS ORDERED: ONDANSETRON ODT 4 MG TAB (6 TAB/ER DISP) PO PRN (18:07)
--- NOTE | 2018-08-05 18:08 | PDOC CONSULTATION ---
Consultation Consult Date: 08/05/18 Attending physician:: STEPHANIE MENDOZA Provider Consulted: ED BRANDT Consult reason:: Ileostomy problem History of Present Illness Patient complains of: Ileostomy problem History of Present Illness: ELOISE FLETCHER is a 28 year old male Is brought [facility] complaining of feeling weak, decreased ileostomy output after several bouts of coughing. He has had decreased ileostomy output, and believes he is dehydrated. In the emergency department he was found to have a prolapsing ileostomy and surgery was consulted. Ice was placed on the ileostomy and it reduced in size. The patient received IV fluids and was feeling better. The patient has a history of right colon cancer, undergoing exploratory laparo zachariah and what appears to be a loop ileostomy by Dr. funez at [facility]. Patient had a port placed by Dr. Chris Espinoza earlier this year he has been receiving chemotherapy. Last treatment several weeks ago at the [facility] oncology group. Past Medical History Cardiac Medical History: Denies: Coronary Artery Disease, Myocardial Infarction, Hypertension Pulmonary Medical History: Denies: Asthma, Bronchitis, Chronic Obstructive Pulmonary Disease (COPD), Pneumonia Neurological Medical History: Denies: Seizures Musculoskeltal Medical History: Denies: Arthritis Hematology: Denies: Anemia Past Surgical History Past Surgical History: As per HPI. Past Surgical History: Reports: Other - As in umbilical hernia, open, as a child. Negative exploratory laparotomy. Social History Information Source: Patient Smoking Status: Never Smoker Frequency of Alcohol Use: None Hx Recreational Drug Use: No Family History Family History: None, Reviewed & Not Pertinent Parental Family History Reviewed: Yes Children Family History Reviewed: Yes Sibling(s) Family History Reviewed.: Yes Medication/Allergy Home Medications: Loperamide HCl [Imodium 2 mg Capsule] 2 mg PO Q4HP PRN 05/16/18 Oxycodone HCl/Acetaminophen [Percocet 5-325 mg Tablet] 1 tab PO ASDIR PRN #15 tab 05/16/18 Allergies/Adverse Reactions: No Known Allergies Allergy (Verified 08/05/18 15:46) Review of Systems Constitutional: PRESENT: as per HPI Eyes: ABSENT: visual disturbances Ears: ABSENT: hearing changes Cardiovascular: ABSENT: chest pain, dyspnea on exertion, edema, orthropnea, palpitations Respiratory: ABSENT: cough, hemoptysis Gastrointestinal: PRESENT: other - Patient reports periodically having ileostomy prolapse, occasionally with decreased stool output. Musculoskeletal: ABSENT: joint swelling Integumentary: ABSENT: rash, wounds Physical Exam Vital Signs: Temp Pulse Resp BP Pulse Ox 97.5 F 93 20 146/85 H 100 08/05/18 15:51 08/05/18 15:51 08/05/18 15:51 08/05/18 15:51 08/05/18 16:21 Intake & Output 08/04/18 08/05/18 08/06/18 06:59 06:59 06:59 Intake Total 1000 Balance 1000 Weight 74.2 kg General appearance: PRESENT: no acute distress Head exam: PRESENT: normocephalic Eye exam: PRESENT: EOMI Mouth exam: PRESENT: dry mucosa Neck exam: PRESENT: full ROM Respiratory exam: PRESENT: clear to auscultation arabella, other - Right subclavian [id number] catheter accessed currently Pulses: PRESENT: normal carotid pulses, normal radial pulses, normal femoral pulses GI/Abdominal exam: PRESENT: other - Well-healed midline scar; ileostomy appliance removed. There is a slightly prolapsed loop ileostomy with afferent and inferior limbs open. I digitalized both limbs with my index finger. The fascial opening is somewhat snug but patent. This was tolerated well. There was no active ileostomy output during the exam. Neurological exam: PRESENT: alert, awake, oriented to person, oriented to place Psychiatric exam: PRESENT: appropriate affect Results Laboratory Results: 08/05/18 16:21 08/05/18 16:49 08/05/18 08/05/18 16:21 16:49 WBC 15.1 H RBC 5.98 H Hgb 14.9 Hct 46.4 MCV 78 L MCH 25.0 L MCHC 32.2 RDW 23.5 H Plt Count 312 Seg Neutrophils % 83.9 H Lymphocytes % 7.2 L Monocytes % 8.4 Eosinophils % 0.2 Basophils % 0.3 Absolute Neutrophils 12.7 H Absolute Lymphocytes 1.1 Absolute Monocytes 1.3 Absolute Eosinophils 0.0 Absolute Basophils 0.0 Sodium 143.8 Potassium 3.8 Chloride 106 Carbon Dioxide 23 Anion Gap 15 BUN 12 Creatinine 0.78 Est GFR ( Amer) > 60 Est GFR (Non-Af Amer) > 60 Glucose 128 H Calcium 10.9 H Total Bilirubin 0.5 AST 25 ALT 25 Alkaline Phosphatase 98 Total Protein 9.0 H Albumin 5.1 H Impressions: KUB X-Ray 08/05/18 16:30 IMPRESSION: Radiopaque stool in the distal small bowel along the right lower quadrant ostomy. Grossly nonobstructive bowel gas pattern Assessment & Plan - Diagnosis (1) Ileostomy prolapse Is this a current diagnosis for this admission?: Yes Plan: Impression: Mild ileostomy prolapse, exacerbated by coughing; now partially reduced; no clinical evidence of obstruction. No evidence of peritoneal signs on physical exam. Suspect leukocytosis and hypercalcemia related to dehydration. Patient does not feel sick and feels better after IV fluids Recommendations: 1. Give additional IV fluids; this was discussed at bedside with emergency room physician 2. I think patient can be managed on an outpatient basis; management of prolapsing ileostomy discussed with patient occluding gentle reduction; he has a follow-up appointment with [facility] oncology on Tuesday. His white blood cell count can be repeated at that time. 3. Please reconsult surgery if clinically indicated. (2) Dehydration Is this a current diagnosis for this admission?: Yes (3) Hypercalcemia Is this a current diagnosis for this admission?: Yes (4) Colon cancer Is this a current diagnosis for this admission?: Yes
== END 2018-08-05 19:35 | disposition home or self-care (01) ==
LOC: ER 15:45
DX: K94.19 Other complications of enterostomy (principal); E83.52 Hypercalcemia; E86.0 Dehydration; R11.2 Nausea with vomiting, unspecified; D72.829 Elevated white blood cell count, unspecified; R10.9 Unspecified abdominal pain; R42 Dizziness and giddiness; R53.1 Weakness; Z79.899 Other long term (current) drug therapy; F17.210 Nicotine dependence, cigarettes, uncomplicated
CPT/HCPCS: 36591; 96376; 99284; 96361; 96374; 36415; 85025; 80053; 74018; J2405; J7030; J7120; J1642

== ENCOUNTER 2018-09-10 03:52 | Inpatient (IN) | payer BC ==
[2018-09-10] MEDS ORDERED: NORMAL SALINE 1000 ML 1,000 ML IV ONE ×2 (04:09→06:25)
[2018-09-10] MEDS ORDERED: HYDROMORPHONE HCL INJ/PF 2 MG/ML AMPULE IV ONE (04:09)
[2018-09-10] MEDS ORDERED: ONDANSETRON HCL INJ/PF 4 MG/2 ML SDV IV ONE ×2 (04:17→05:27)
[2018-09-10] MEDS ORDERED: ONDANSETRON HCL INJ/PF 4 MG/2 ML SDV ONE ×2 (04:17→13:08)
--- NOTE | 2018-09-10 04:17 | ER Document Report ---
ED General - General TRAVEL OUTSIDE OF THE [place] IN LAST 30 DAYS: No <KAREN JEWELL - Last Filed: 09/10/18 06:25> <STEPHANIE MENDOZA - Last Filed: 09/10/18 07:01> - General Chief Complaint: Nausea Stated Complaint: NAUSEA Time Seen by Provider: 09/10/18 04:08 Notes: Patient is a 28-year-old male who presents with complaint of severe pain and nausea and vomiting and prolapse of his ileostomy. He has colon cancer. Ileostomy performed in March at [facility] by Dr. Salazar. He has had a prolapse once before and was seen here back in July for the same thing. No fevers. No blood coming from the ileostomy. He is on chemotherapy. He is followed by Dr. Hardwick who is his oncologist. (KAREN JEWELL) - Related Data Allergies/Adverse Reactions: No Known Allergies Allergy (Verified 08/05/18 15:46) Past Medical History - Social History Smoking Status: Unknown if Ever Smoked Frequency of alcohol use: None Drug Abuse: None Family History: Reviewed & Not Pertinent - Past Medical History Cardiac Medical History: Denies: Hx Coronary Artery Disease, Hx Heart Attack, Hx Hypertension Pulmonary Medical History: Denies: Hx Asthma, Hx Bronchitis, Hx COPD, Hx Pneumonia Neurological Medical History: Denies: Hx Cerebrovascular Accident, Hx Seizures Renal/ Medical History: Denies: Hx Peritoneal Dialysis Musculoskeletal Medical History: Denies Hx Arthritis Past Surgical History: Reports: Hx Abdominal Surgery - exploratory lap, Other - Umbilical hernia, open, as a child. Negative exploratory laparotomy. - Immunizations Hx Diphtheria, Pertussis, Tetanus Vaccination: Yes <KAREN JEWELL - Last Filed: 09/10/18 06:25> Review of Systems <KAREN JEWELL - Last Filed: 09/10/18 06:25> - Review of Systems Notes: My Normal Review Basic REVIEW OF SYSTEMS: CONSTITUTIONAL : Denies fever, chills, or sweats. Denies recent illness. EENT: Denies eye, ear, throat, or mouth pain or symptoms. Denies nasal or sinus congestion. RESPIRATORY: Denies cough, cold, or chest congestion. Denies shortness of breath, difficulty breathing, or wheezing. GASTROINTESTINAL: Abdominal pain. Vomiting. GENITOURINARY: Denies difficulty urinating, painful urination, burning, frequency, or blood in urine. MUSCULOSKELETAL: Denies neck or back pain or joint pain or swelling. SKIN: Denies rash or skin lesions. NEUROLOGICAL: Denies altered mental status or loss of consciousness. Denies headache. Denies weakness or paralysis or loss of use of either side. Denies problems with gait or speech. Denies sensory or motor loss. ALL OTHER SYSTEMS REVIEWED AND NEGATIVE. (KAREN JEWELL) Physical Exam <KAREN JEWELL - Last Filed: 09/10/18 06:25> - Vital signs Vitals: Temp Pulse Resp BP Pulse Ox 98 F 105 H 28 H 120/76 98 09/10/18 03:59 09/10/18 03:59 09/10/18 03:59 09/10/18 03:59 09/10/18 03:59 - Notes Notes: General Appearance: Well nourished, alert, patient is in severe pain. Is diaphoretic and pale appearing. Patient is vomiting. Vitals: reviewed, See vital signs table. Head: no swelling or tenderness to the head Eyes: PERRL, EOMI, Conjuctiva clear Mouth: No decreasd moisture Lungs: No wheezing, No rales, No rhonci, No accessory muscle use, good air exchange bilaterally. Heart: Normal rate, Regular rythm, No murmur, no rub Abdomen: Normal BS, soft, No rigidity, patient has prolapse of his healing through the ileostomy. Prolapse is atypical appearing that she has 2 extruded ends of ileostomy and illness appears as if the intestine may be telescoping out of part of the ileum. He has severe tenderness with any attempt to palpate around the ostomy site. No blood. Extremities: good pulses in all extremities, no swelling or tenderness in the extremities, no edema. Skin: warm, dry, appropriate color, no rash Neuro: speech clear, oriented x 3, normal affect, responds appropriately to questions. (KAREN JEWELL) Course - Laboratory Result Diagrams: 09/10/18 04:30 09/10/18 04:30 <KAREN JEWELL - Last Filed: 09/10/18 06:25> - Laboratory Result Diagrams: 09/10/18 04:30 09/10/18 04:30 <STEPHANIE MENDOZA - Last Filed: 09/10/18 07:01> - Re-evaluation Re-evalutation: 09/10/18 04:12 Patient is diaphoretic and shaking and obviously a lot of pain. Patient has prolapse of his ileostomy. It is a bit atypical in appearance and that the elapsed prolapse has to ends that come down together at the opening of the ileostomy. Did apply gentle traction to try to reduce the ileostomy but it is not reducing at all. I did not push hard as I do not want to cause further damage to the bowel. I have ordered pain medicine. We will place him on a monitor. I immediately called the general surgeon, Dr. Prescott. He is familiar with the patient as he took care of him in July here. He said to place and ice pack over the prolapsed bowel and he would come down and see the patient. 09/10/18 05:27 Patient has had slight reduction in the prolapse of his ileostomy. Says his pain is much improved and he looks much more comfortable. He is no longer pale and diaphoretic. Labs evaluation is unremarkable. Vital signs have stabilized. She is on complaint is that he still has some mild nausea. He otherwise feels well. 09/10/18 06:24 Patient later told nursing staff that he is no longer doing chemo. I went back and redressed this with him. He says he had to take a break from chemo because he did not like the way this made him feel. He is about to start back up again. Last chemotherapy was July 24. I did speak with Dr. Prescott again and he says he will come down shortly to see the patient and look at trying to further reduce the ileostomy. (KAREN JEWELL) - Vital Signs Vital signs: Temp Pulse Resp BP Pulse Ox 97.3 F 83 17 129/84 H 100 09/10/18 04:30 09/10/18 04:30 09/10/18 06:01 09/10/18 06:00 09/10/18 06:01 - Laboratory Laboratory results interpreted by me: 09/10/18 09/10/18 04:30 04:30 Hgb 13.2 L MCV 79 L MCH 26.5 L RDW 22.3 H Seg Neutrophils % 91.7 H Lymphocytes % 5.3 L Monocytes % 2.9 L Carbon Dioxide 21 L Glucose 132 H ALT 19 L Discharge <KAREN JEWELL - Last Filed: 09/10/18 06:25> - Discharge Admitting Provider: Surgicalist - Dr. Prescott Unit Admitted: OR <STEPHANIE MENDOZA - Last Filed: 09/10/18 07:01> - Discharge Clinical Impression: Ileostomy prolapse Abdominal pain Qualifiers: Abdominal location: unspecified location Qualified Code(s): R10.9 - Unspecified abdominal pain Condition: Stable Disposition: ADMITTED INPATIENT
[2018-09-10 04:43] LABS: ABSOLUTE LYMPHOCYTES (AUTO) 0.5 10^3/uL (0.5-4.7); ABSOLUTE MONOCYTES (AUTO) 0.3 10^3/uL (0.1-1.4); ABSOLUTE NEUT (AUTO) 8.2 10^3/uL (1.7-8.2); BASOPHILS % (AUTO) 0.1 % (0-2); HEMATOCRIT 39.7 % (37.9-51.0); HEMOGLOBIN 13.2 g/dL (13.5-17.0); LYMPHOCYTES % (AUTO) 5.3 % (13-45); MEAN CORPUSCULAR HEMOGLOBIN 26.5 pg (27.0-33.4); MEAN CORPUSCULAR HGB CONC 33.3 g/dL (32.0-36.0); MEAN CORPUSCULAR VOLUME 79 fl (80-97); MONOCYTES % (AUTO) 2.9 % (3-13); PLATELET COUNT 299 10^3/uL (150-450); RED BLOOD COUNT 5.01 10^6/uL (4.35-5.55); RED CELL DISTRIBUTION WIDTH 22.3 % (11.5-14.0); SEGMENTED NEUTROPHILS % (AUTO) 91.7 % (42-78); TOTAL CELLS COUNTED % (AUTO) 100 %; WHITE BLOOD COUNT 8.9 10^3/uL (4.0-10.5)
[2018-09-10 05:02] LABS: ALANINE AMINOTRANSFERASE 19 U/L (21-72); ALBUMIN 4.4 g/dL (3.5-5.0); ALKALINE PHOSPHATASE 78 U/L (38-126); ANION GAP 12 (5-19); ASPARTATE AMINO TRANSFERASE 18 U/L (17-59); BILIRUBIN,DIRECT 0.2 mg/dL (0.0-0.4); BILIRUBIN,TOTAL 0.7 mg/dL (0.2-1.3); BLOOD UREA NITROGEN 12 mg/dL (7-20); CARBON DIOXIDE 21 mmol/L (22-30); CHLORIDE 105 mmol/L (98-107); GLUCOSE 132 mg/dL (75-110); POTASSIUM 4.5 mmol/L (3.6-5.0); SODIUM 137.9 mmol/L (137-145); TOTAL PROTEIN 7.7 g/dL (6.3-8.2)
--- NOTE | 2018-09-10 07:17 | PDOC H&P ---
History of Present Illness Admission Date/PCP: 09/10/18 07:07 Patient complains of: Nonfunctioning ileostomy History of Present Illness: ELOISE FLETCHER is a 28 year old male Presents to the emergency department via ground rescue with a several day history of a prolapsing diverting ileostomy. Patient has known locally advanced colon cancer, undergoing chemotherapy, last treated 2 months ago by [facility] oncology. The patient was in the emergency department with a similar problem 1 month ago; the ileostomy was manually reduced by Dr. Prescott. He is now back in the emergency department with no ileostomy output, pain, and prolapsing ileostomy the cannot be reduced manually despite icing for several hours. The patient is advised admission for ileostomy revision. Past Medical History Past Medical History: Locally advanced colon cancer status post diverting ileostomy; chemotherapy Cardiac Medical History: Denies: Coronary Artery Disease, Myocardial Infarction, Hypertension Pulmonary Medical History: Denies: Asthma, Bronchitis, Chronic Obstructive Pulmonary Disease (COPD), Pneumonia Neurological Medical History: Denies: Seizures Musculoskeltal Medical History: Denies: Arthritis Hematology: Denies: Anemia Past Surgical History Past Surgical History: Exploratory laparotomy, diverting ileostomy Past Surgical History: Reports: Other - Umbilical hernia, open, as a child. Negative exploratory laparotomy. Social History Information Source: Patient Smoking Status: Unknown if Ever Smoked Frequency of Alcohol Use: None Hx Recreational Drug Use: No Family History Family History: None, Reviewed & Not Pertinent Parental Family History Reviewed: Yes Children Family History Reviewed: Yes Sibling(s) Family History Reviewed.: Yes Medication/Allergy Home Medications: Loperamide HCl [Imodium 2 mg Capsule] 2 mg PO Q4HP PRN 05/16/18 Oxycodone HCl/Acetaminophen [Percocet 5-325 mg Tablet] 1 tab PO ASDIR PRN #15 tab 05/16/18 Ondansetron [Zofran Odt 4 mg Tablet] 1 tab PO Q8H PRN #15 tab.rapdis 08/05/18 Allergies/Adverse Reactions: No Known Allergies Allergy (Verified 08/05/18 15:46) Review of Systems Constitutional: PRESENT: as per HPI Eyes: ABSENT: visual disturbances Ears: ABSENT: hearing changes Cardiovascular: ABSENT: chest pain, dyspnea on exertion, edema, orthropnea, palpitations Respiratory: ABSENT: cough, hemoptysis Gastrointestinal: PRESENT: as per HPI Musculoskeletal: ABSENT: joint swelling Integumentary: ABSENT: rash, wounds Neurological: ABSENT: abnormal gait, abnormal speech, confusion, dizziness, focal weakness, syncope Physical Exam Vital Signs: Temp Pulse Resp BP Pulse Ox 97.3 F 83 17 129/84 H 100 09/10/18 04:30 09/10/18 04:30 09/10/18 06:01 09/10/18 06:00 09/10/18 06:01 Intake & Output 09/09/18 09/10/18 09/11/18 06:59 06:59 06:59 Intake Total 1000 Balance 1000 Weight 79.5 kg General appearance: PRESENT: no acute distress Head exam: PRESENT: normocephalic Eye exam: PRESENT: EOMI Mouth exam: PRESENT: dry mucosa Neck exam: PRESENT: full ROM Respiratory exam: PRESENT: clear to auscultation arabella Cardiovascular exam: PRESENT: RRR Pulses: PRESENT: normal carotid pulses, normal radial pulses GI/Abdominal exam: PRESENT: other - Midline scar; no abdominal distention, prolapsing ileostomy, viable but edematous, protruding approximately 8 cm; unable to reduce despite vigorous attempts Rectal exam: PRESENT: deferred Extremities exam: PRESENT: full ROM Neurological exam: PRESENT: awake, oriented to person, oriented to place, oriented to time, oriented to situation Psychiatric exam: PRESENT: appropriate affect Skin exam: PRESENT: dry Results Laboratory Results: 09/10/18 04:30 09/10/18 04:30 09/10/18 09/10/18 04:30 04:30 WBC 8.9 RBC 5.01 Hgb 13.2 L Hct 39.7 MCV 79 L MCH 26.5 L MCHC 33.3 RDW 22.3 H Plt Count 299 Seg Neutrophils % 91.7 H Lymphocytes % 5.3 L Monocytes % 2.9 L Eosinophils % 0.0 Basophils % 0.1 Absolute Neutrophils 8.2 Absolute Lymphocytes 0.5 Absolute Monocytes 0.3 Absolute Eosinophils 0.0 Absolute Basophils 0.0 Sodium 137.9 Potassium 4.5 Chloride 105 Carbon Dioxide 21 L Anion Gap 12 BUN 12 Creatinine 0.76 Est GFR ( Amer) > 60 Est GFR (Non-Af Amer) > 60 Glucose 132 H Calcium 10.0 Total Bilirubin 0.7 AST 18 ALT 19 L Alkaline Phosphatase 78 Total Protein 7.7 Albumin 4.4 Assessment & Plan - Diagnosis (1) Ileostomy prolapse Is this a current diagnosis for this admission?: Yes Plan: Impression: Second episode of prolapsing ileostomy, now irreducible by multiple manual efforts. Causing obstruction and no ileostomy output. Needs revision. Recommendations: 1. We will admit, keep n.p.o., IV fluids, patient operating room for ileostomy revision, ideally through ileostomy site only. 2. I spoke with Dr. Dale, medical oncologist, who will review patient's medical record at [facility] oncology, and ascertain complete previous oncologic and surgical history. His ileostomy was performed by Dr. Salazar at [facility]. (2) Abdominal pain Qualifiers: Abdominal location: unspecified location Qualified Code(s): R10.9 - Unspecified abdominal pain Is this a current diagnosis for this admission?: Yes (3) Colon cancer Is this a current diagnosis for this admission?: Yes (4) Dehydration Is this a current diagnosis for this admission?: Yes - Time Time Spent: 30 to 50 Minutes Critical Time spent with patient: 15-24 minutes Medications reviewed and adjusted accordingly: Yes Anticipated discharge: Home - Inpatient Certification Based on my medical assessment, after consideration of the patient's comorbidities, presenting symptoms, or acuity I expect that the services needed warrant INPATIENT care.: Yes I certify that my determination is in accordance with my understanding of Medicare's requirements for reasonable and necessary INPATIENT services [42 CFR 412.3e].: Yes Medical Necessity: Need For IV Fluids, Need for Pain Control, Need for IV Antibiotics, Need for Surgery
[2018-09-10] MEDS ORDERED: MIDAZOLAM 2 MG/2 ML INJ ONE (07:43)
[2018-09-10] MEDS ORDERED: PROPOFOL INJ 200 MG/20 ML VIAL IV ONE (07:43)
[2018-09-10] MEDS ORDERED: FENTANYL CITRATE INJ/PF 100 MCG/2 ML AMPUL ONE (07:43)
[2018-09-10] MEDS ORDERED: HYDROMORPHONE HCL INJ/PF 2 MG/ML AMPULE ONE (07:43)
[2018-09-10] MEDS ORDERED: FENTANYL CITRATE INJ/PF 250 MCG/5 ML AMPULE ONE (07:46)
[2018-09-10] MEDS ORDERED: AMPICILLIN SOD/SULBACTAM 1.5 GM VIAL ONE (07:49)
[2018-09-10] MEDS ORDERED: DIPHENHYDRAMINE HCL 50 MG/ML VIAL IV PRN (07:59)
[2018-09-10] MEDS ORDERED: MEPERIDINE HCL/PF INJ 25 MG/1 ML DISP.SYRIN IV PRN (07:59)
[2018-09-10] MEDS ORDERED: FENTANYL CITRATE INJ/PF 100 MCG/2 ML AMPUL IV PRN ×3 (07:59)
[2018-09-10] MEDS ORDERED: MORPHINE SULFATE 10 MG/ML INJ IV PRN (07:59)
[2018-09-10] MEDS ORDERED: PROMETHAZINE HCL INJ 25 MG/1 ML VIAL IV PRN (07:59)
[2018-09-10] MEDS ORDERED: AMPICILLIN SODIUM/SULBACTAM NA 3 GM in NORMAL SALINE 100 ML IV ONE (08:00)
[2018-09-10] MEDS ORDERED: BUPIVACAINE HCL 0.25 % INJ/PF (2.5 MG/1 ML) 30 ML VIAL ONE (08:26)
[2018-09-10] MEDS ORDERED: BUPIVACAINE INJ/PF LIPOSOME/PF 266 MG/20 ML SDV ONE (08:26)
--- NOTE | 2018-09-10 10:05 | Operative Report ---
Operative Report DATE OF SURGERY: 09/10/18 PREOPERATIVE DIAGNOSIS: 1. Nonreducible, incarcerated diverting ileostomy. 2. Locally advanced colon carcinoma status post chemotherapy. 3. Status post extended right hemicolectomy POSTOPERATIVE DIAGNOSIS: Same OPERATION: 1. Resection of prolapsing ileostomy. 2. Revision double barrel the ostomy and mucous fistula SURGEON: ED BRANDT ANESTHESIA: GA TISSUE REMOVED OR ALTERED: Portion of ileum consistent with prolapsing ileostomy COMPLICATIONS: None ESTIMATED BLOOD LOSS: 15 cc INTRAOPERATIVE FINDINGS: See below PROCEDURE: The patient was taken from the preop holding her to the main operating room where general anesthesia was induced. Arms were abducted. The protruding ileostomy was oversewn at its orifice. The abdomen was then prepped and draped in sterile fashion. Surgical plan and surgical timeout conducted. Skin around the ileostomy was anesthetized with quarter percent Marcaine, approximately 20 cc. The ileostomy was taken down sharply by incising the skin adjacent to the mucosa. A few adhesive bands were taken down with electrocautery. The prolapsed ileum was eviscerated from the peritoneal cavity. The proximal end had some succus entericus in it. The distal end patent for approximately 6 cm, then appeared to be mechanically occluded with either shhaab or sutures. Distal to this area appeared to be a position to colonic tissue. My impression at this point was that the patient had undergone a div erting ileostomy, with occlusion of the terminal ileum which functionally would have been consistent with a mucous fistula. Therefore resected this segment of small bowel, approximately 11 cm including the prolapse, intussuscepted ileostomy. The ileum was divided proximally distally with ANGELA 55 staplers, the mesentery taken down with clamps and 2-0 Vicryl ties. I inspected the specimen on the back table, and identified a Prolene suture occluding the distal ileum which had been placed there intentionally. At this point I felt like a double barrel ileostomy was appropriate. The 2 ends of the ileum were brought adjacent to each other, with the proximal and placed medially, and the distal and placed laterally. Both ends were matured nicely with the lateral side of the proximal and and the medial side of the distal and sewn to each other with a running 3-0 Vicryl suture. Appropriate ileostomy appliance applied. Patient tolerated the procedure well, extubated, taken recovery room stable condition. Addendum: After the operation, in communication with Dr. Dale, it was ascertained that the patient had undergone exploratory laparotomy, extensive debridement of the right colon, with extended right hemicolectomy, and resection of mesenteric implants. I do not have the full op note presently. Procedure was performed by Dr. funez at [facility]. The patient received adjuvant chemotherapy, including Avastin which was stopped approximately 8 weeks ago. Patient was noted to have an 8 mm lesion suspicious for metastatic disease. 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
[2018-09-10] MEDS ORDERED: MORPHINE SULFATE 10 MG/ML INJ ONE (10:19)
[2018-09-10] MEDS: RINGERS SOLUTION,LACTATED 1,000 ML IV PRN (11:20)
[2018-09-10] MEDS: KETOROLAC TROMETHAMINE INJ/PF 30 MG/1 ML SDV IV PRN ×2 (11:55→18:04)
--- NOTE | 2018-09-10 12:21 | PDOC CONSULTATION ---
Consultation Consult Date: 09/10/18 Attending physician:: ED PRESCOTT Provider Consulted: DERECK MAY Consult reason:: Nonfunctioning ileostomy, Stage III vs IV colon ca History of Present Illness Admission Date/PCP: 09/10/18 07:07 Patient complains of: Abd pain, no output from ileostomy History of Present Illness: ELOISE FLETCHER is a 28 year old male who presented to ED w/ non functioning ileostomy, in ED was found to have prolapsed ileostomy that could no be manually reduced. He was taken to the OR and had revision of the ileostomy, in discussion w/ Dr. Prescott, there was no gross metastatic disease noted. He originally presented to [facility] with peritonitis, ultimately found to have R ascending colonic mass with perforation, abcess into R lateral/retroperitoneal wall, up to liver. He had extended R hemicolectomy, found to have poorly diff adenoca, 2/57LN+, liver margin neg, all other margins neg, final stage [id number]. Post op CT A/P noted a 8mm lesion in R lobe of liver. Pt was started on FOLFOX + Avastin. 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 He stopped all tx in 06/2018 b/c of financial issues. His last chemo was 07/04/18. He was last seen by us in 07/2018 at which time he decided against any further tx. He is in PACU now and recovering, having some pain. Past Medical History Cardiac Medical History: Denies: Coronary Artery Disease, Myocardial Infarction, Hypertension Pulmonary Medical History: Denies: Asthma, Bronchitis, Chronic Obstructive Pulmonary Disease (COPD), Pneumonia Neurological Medical History: Denies: Seizures Malignancy Medical History: Reports: Colorectal Cancer Musculoskeltal Medical History: Denies: Arthritis Hematology: Denies: Anemia Past Surgical History Past Surgical History: Reports: Other - R extended hemicolectomy, loop ileostomy 03/2018 Social History Information Source: Patient Lives with: Family Smoking Status: Never Smoker Frequency of Alcohol Use: None Hx Recreational Drug Use: No - Advance Directive Resuscitation Status: Full Code Family History Family History: None, Reviewed & Not Pertinent Parental Family History Reviewed: Yes Children Family History Reviewed: Yes Sibling(s) Family History Reviewed.: Yes Medication/Allergy Home Medications: Loperamide HCl [Imodium 2 mg Capsule] 2 mg PO Q4HP PRN 02/19/19 Oxycodone HCl/Acetaminophen [Percocet 5-325 mg Tablet] 1 tab PO ASDIR PRN #15 tab 05/16/18 Ondansetron [Zofran Odt 4 mg Tablet] 1 tab PO Q8H PRN #15 tab.rapdis 08/05/18 Allergies/Adverse Reactions: No Known Allergies Allergy (Verified 08/05/18 15:46) Review of Systems Constitutional: ABSENT: chills, fever(s), headache(s), weight gain, weight loss Eyes: ABSENT: visual disturbances Ears: ABSENT: hearing changes Cardiovascular: ABSENT: chest pain, dyspnea on exertion, edema, orthropnea, palpitations Respiratory: ABSENT: cough, hemoptysis Gastrointestinal: ABSENT: abdominal pain, constipation, diarrhea, hematemesis, hematochezia, nausea, vomiting Genitourinary: ABSENT: dysuria, hematuria Musculoskeletal: ABSENT: joint swelling Integumentary: ABSENT: rash, wounds Neurological: ABSENT: abnormal gait, abnormal speech, confusion, dizziness, focal weakness, syncope Psychiatric: ABSENT: anxiety, depression, homidical ideation, suicidal ideation Endocrine: ABSENT: cold intolerance, heat intolerance, polydipsia, polyuria Hematologic/Lymphatic: ABSENT: easy bleeding, easy bruising Physical Exam Vital Signs: Temp Pulse Resp BP Pulse Ox 97.3 F 83 17 129/84 H 100 09/10/18 04:30 09/10/18 04:30 09/10/18 06:01 09/10/18 06:00 09/10/18 06:01 Intake & Output 09/09/18 09/10/18 09/11/18 06:59 06:59 06:59 Intake Total 1000 Balance 1000 Weight 79.5 kg General appearance: PRESENT: no acute distress, well-developed, well-nourished Head exam: PRESENT: atraumatic, normocephalic Eye exam: PRESENT: conjunctiva pink, EOMI, PERRLA. ABSENT: scleral icterus Ear exam: PRESENT: normal external ear exam Mouth exam: PRESENT: moist, tongue midline Neck exam: ABSENT: carotid bruit, JVD, lymphadenopathy, thyromegaly Respiratory exam: PRESENT: clear to auscultation arabella. ABSENT: rales, rhonchi, wheezes Cardiovascular exam: PRESENT: RRR. ABSENT: diastolic murmur, rubs, systolic murmur Pulses: PRESENT: normal dorsalis pedis pul Vascular exam: PRESENT: normal capillary refill GI/Abdominal exam: PRESENT: normal bowel sounds, soft. ABSENT: distended, guarding, mass, organolmegaly, rebound, tenderness Rectal exam: PRESENT: deferred Extremities exam: PRESENT: full ROM. ABSENT: calf tenderness, clubbing, pedal edema Neurological exam: PRESENT: alert, awake, oriented to person, oriented to place, oriented to time, oriented to situation, CN II-XII grossly intact. ABSENT: motor sensory deficit Psychiatric exam: PRESENT: appropriate affect, normal mood. ABSENT: homicidal ideation, suicidal ideation Skin exam: PRESENT: dry, intact, warm. ABSENT: cyanosis, rash Results Laboratory Results: 09/10/18 04:30 09/10/18 04:30 09/10/18 09/10/18 04:30 04:30 WBC 8.9 RBC 5.01 Hgb 13.2 L Hct 39.7 MCV 79 L MCH 26.5 L MCHC 33.3 RDW 22.3 H Plt Count 299 Seg Neutrophils % 91.7 H Lymphocytes % 5.3 L Monocytes % 2.9 L Eosinophils % 0.0 Basophils % 0.1 Absolute Neutrophils 8.2 Absolute Lymphocytes 0.5 Absolute Monocytes 0.3 Absolute Eosinophils 0.0 Absolute Basophils 0.0 Sodium 137.9 Potassium 4.5 Chloride 105 Carbon Dioxide 21 L Anion Gap 12 BUN 12 Creatinine 0.76 Est GFR ( Amer) > 60 Est GFR (Non-Af Amer) > 60 Glucose 132 H Calcium 10.0 Total Bilirubin 0.7 AST 18 ALT 19 L Alkaline Phosphatase 78 Total Protein 7.7 Albumin 4.4 Assessment & Plan - Diagnosis (1) Ileostomy prolapse Is this a current diagnosis for this admission?: Yes Plan: Status post surgical intervention, patient is doing well post operation now, having pain as a expected, continued management per surgical team (2) Colon cancer Qualifiers: Colon location: ascending Qualified Code(s): C18.2 - Malignant neoplasm of ascending colon Is this a current diagnosis for this admission?: Yes Plan: Stage III versus 4 colon cancer, restaging CT of the chest abdomen pelvis ordered. Plan for follow-up after we have those results. - Time Time Spent: Greater than 70 Minutes - Inpatient Certification Based on my medical assessment, after consideration of the patient's comorbidities, presenting symptoms, or acuity I expect that the services needed warrant INPATIENT care.: Yes I certify that my determination is in accordance with my understanding of Medicare's requirements for reasonable and necessary INPATIENT services [42 CFR 412.3e].: Yes Medical Necessity: Need for Pain Control, Need for Surgery, Risk of Complication if Not Cared For in Hospital
--- NOTE | 2018-09-10 13:04 | PDOC PROGRESS REPORT ---
Subjective Subjective:: Patient recovered from ileostomy revision. On the floor; adequate pain control. Reason For Visit: PROLAPSE, NONREDUCIBLE ILEOSTOMY Physical Exam Vital Signs: Temp Pulse Resp BP Pulse Ox 97 F L 93 20 146/70 H 111 H 09/10/18 11:00 09/10/18 11:00 09/10/18 11:00 09/10/18 11:00 09/10/18 11:00 Intake & Output 09/09/18 09/10/18 09/11/18 06:59 06:59 06:59 Intake Total 1000 900 Output Total 235 Balance 1000 665 Weight 79.5 kg 69.853 kg General appearance: PRESENT: no acute distress GI/Abdominal exam: PRESENT: other - Appliance intact; ileostomy viable, not protruding Results Laboratory Results: 09/10/18 04:30 09/10/18 04:30 09/10/18 09/10/18 04:30 04:30 WBC 8.9 RBC 5.01 Hgb 13.2 L Hct 39.7 MCV 79 L MCH 26.5 L MCHC 33.3 RDW 22.3 H Plt Count 299 Seg Neutrophils % 91.7 H Lymphocytes % 5.3 L Monocytes % 2.9 L Eosinophils % 0.0 Basophils % 0.1 Absolute Neutrophils 8.2 Absolute Lymphocytes 0.5 Absolute Monocytes 0.3 Absolute Eosinophils 0.0 Absolute Basophils 0.0 Sodium 137.9 Potassium 4.5 Chloride 105 Carbon Dioxide 21 L Anion Gap 12 BUN 12 Creatinine 0.76 Est GFR ( Amer) > 60 Est GFR (Non-Af Amer) > 60 Glucose 132 H Calcium 10.0 Total Bilirubin 0.7 AST 18 ALT 19 L Alkaline Phosphatase 78 Total Protein 7.7 Albumin 4.4 Assessment & Plan - Diagnosis (1) Ileostomy prolapse Is this a current diagnosis for this admission?: Yes Plan: Impression: Uneventful immediate postoperative course status post ileostomy revision Discussion: 1. I spoke with Dr. Dale, medical oncologist. Patient has microsatellite ability, positive for genetic mutation for Marie syndrome. I spoke with Dr. Callahan, the surgical oncologist advised and who performed the patient's operation last fall at [facility]. The patient underwent exploratory laparotomy, extended right hemicolectomy, with ileal to distal transverse colon anastomosis with protective loop ileostomy. The patient had stage IV perforated right colon cancer. Lymph node status not reported. Mesenteric masses harvested and sent to pathology, negative for malignancy. 2. While hospitalized, we will obtain CT scans of the chest abdomen and pelvis to rule out residual malignancy. If appropriate, I would suggest ileostomy takedown and gastrointestinal continuity protestant. In preparation for such, we will perform colonoscopy of his remaining left colon, rectum and anus. This was explained to the patient. (2) Abdominal pain Qualifiers: Abdominal location: unspecified location Qualified Code(s): R10.9 - Unspecified abdominal pain Is this a current diagnosis for this admission?: Yes (3) Colon cancer Qualifiers: Colon location: ascending Qualified Code(s): C18.2 - Malignant neoplasm of ascending colon Is this a current diagnosis for this admission?: Yes (4) Dehydration Is this a current diagnosis for this admission?: Yes
[2018-09-10] MEDS ORDERED: ROCURONIUM BROMIDE INJ 50 MG/5 ML VIAL IV ONE (13:08)
[2018-09-10] MEDS ORDERED: KETOROLAC TROMETHAMINE 60 MG/2 ML SDV ONE (13:08)
[2018-09-10] MEDS ORDERED: SUCCINYLCHOLINE CHLORIDE INJ 200 MG/10 ML VIAL ONE (13:08)
[2018-09-10] MEDS ORDERED: DEXAMETHASONE SOD PHOSPHATE INJ 4 MG/1 ML VIAL ONE (13:08)
[2018-09-10] MEDS ORDERED: LIDOCAINE 2% INJ-PF (20 MG/ML) 2 ML AMPUL ONE (13:08)
[2018-09-10] MEDS: AMPICILLIN SODIUM/SULBACTAM NA 3 GM in NORMAL SALINE 100 ML IV SCH ×2 (16:18→22:12)
[2018-09-10] MEDS ORDERED: AMPICILLIN SOD/SULBACTAM 3 GM VIAL ONE (21:27)
[2018-09-11] MEDS ORDERED: AMPICILLIN SOD/SULBACTAM 3 GM VIAL ONE ×2 (02:31→22:07)
[2018-09-11] MEDS: AMPICILLIN SODIUM/SULBACTAM NA 3 GM in NORMAL SALINE 100 ML IV SCH ×3 (06:25→23:04)
[2018-09-11] MEDS: KETOROLAC TROMETHAMINE INJ/PF 30 MG/1 ML SDV IV PRN (07:13)
--- NOTE | 2018-09-11 08:25 | PDOC PROGRESS REPORT ---
Subjective Progress Note for:: 09/11/18 Subjective:: Patient states that he is feeling much better after surgery. No further nausea or vomiting. ROS: Denies dyspnea, headache. Reason For Visit: PROLAPSE, NONREDUCIBLE ILEOSTOMY Physical Exam Vital Signs: Temp Pulse Resp BP Pulse Ox 98.7 F 90 18 124/64 99 09/11/18 03:00 09/11/18 03:00 09/11/18 03:00 09/11/18 03:00 09/11/18 03:00 Intake & Output 09/10/18 09/11/18 09/12/18 06:59 06:59 06:59 Intake Total 1000 3240 Output Total 1835 Balance 1000 1405 Weight 79.5 kg 69.853 kg General appearance: PRESENT: no acute distress, well-developed, well-nourished Head exam: PRESENT: normocephalic Respiratory exam: PRESENT: unlabored Neurological exam: PRESENT: alert, awake Psychiatric exam: PRESENT: appropriate affect Skin exam: PRESENT: normal color Results Laboratory Results: 09/10/18 04:30 09/10/18 04:30 Assessment & Plan - Diagnosis (1) Colon cancer Qualifiers: Colon location: ascending Qualified Code(s): C18.2 - Malignant neoplasm of ascending colon Is this a current diagnosis for this admission?: Yes Plan: Stage III vs. Stage IV. He only received part of his planned adjuvant treatment. Await restaging studies now. If no evidence of mets, then reversal of iliostomy is reasonable. (2) Ileostomy prolapse Is this a current diagnosis for this admission?: Yes Plan: s/p surgery. Healing well. - Plan Summary Plan Summary: Will follow. Await CT reports.
--- NOTE | 2018-09-11 08:43 | RADIOLOGY REPORT (SQ) ---
EXAM DESCRIPTION: CT CHEST WITH; CT ABD/PELVIS WITH IV ONLY COMPLETED DATE/TIME: 09/10/2018 2:47 pm REASON FOR STUDY: indication colon cancer eval for metastic disease RENAL FUNCTION: Creatinine 0.76 TECHNIQUE: CT scan of the chest performed using helical scanning technique with dynamic intravenous contrast injection. Images reviewed with lung, soft tissue and bone windows. Reconstructed coronal a nd sagittal MPR images reviewed. All images stored on PACS. CT scan of the abdomen and pelvis performed with intravenous and without oral contrastusing helical s ranjeet technique with dynamic intravenous contrast injection. Images reviewed with lung, soft tissu e and bone windows. Reconstructed coronal and sagittal MPR images reviewed. Delayed images for eval uation of the urinary system also acquired and evaluated. All images stored on PACS. All CT scanners at this facility use dose modulation, iterative reconstruction, and/or weight based d osing when appropriate to reduce radiation dose to as low as reasonably achievable (ALARA). [facility]: Dose Right [facility]: CareDose [facility]: Dose Right [facility]: Teradose 4D [facility]: Smart VisualOn RADIATION DOSE: CT Rad equipment meets quality standard of care and radiation dose reduction techniq ues were employed. CTDIvol: 5.9 - 7.6 mGy. DLP: 917 mGy-cm. . LIMITATIONS: None. FINDINGS: CHEST: LUNGS AND PLEURA: Very dense lung parenchymal consolidation is present throughout the bilateral upper lobes and superior segments of the lower lobes. Differential is aspiration pneumonia versus pulmona ry edema versus possible lung parenchymal chemotherapy toxicity. This finding was discussed with Dr. Dale. No pleural effusions. No pneumothorax. No gross lung nodules. Airways are patent. HILAR AND MEDIASTINAL STRUCTURES: No identified masses or abnormal nodes. HEART AND VASCULAR STRUCTURES: No aneurysm or dissection. No central pulmonary emboli. No pericardi al effusion. HARDWARE: Right permanent central line tip superior vena cava THYROID AND OTHER SOFT TISSUES: No masses. No adenopathy. BONES: No significant finding. OTHER: No other significant finding. ABDOMEN AND PELVIS: LIVER: Normal size. No masses. Subcentimeter cyst right lobe liver subdiaphragmatic surface unchange d from CT 01/22/2018. No dilated ducts. SPLEEN: Normal size. No focal lesions. PANCREAS: No masses. No significant calcifications. No adjacent inflammation or peripancreatic fluid collections. Pancreatic duct not dilated. GALLBLADDER: No identified stones by CT criteria. No inflammatory changes to suggest cholecystitis. ADRENAL GLANDS: No significant masses or asymmetry. RIGHT KIDNEY AND URETER: No solid masses. No significant calcification. No hydronephrosis or hydroure ter. LEFT KIDNEY AND URETER: No solid masses. No significant calcification. No hydronephrosis or hydrouret er. AORTA AND VESSELS: No aneurysm. No dissection. Renal arteries, SMA, celiac without stenosis. RETROPERITONEUM: No retroperitoneal adenopathy, hemorrhage or masses. BOWEL AND PERITONEAL CAVITY: There is trace intraperitoneal free air post revision of right lower tessa drant ileostomy earlier on 09/10/2018. No CT evidence of bowel obstruction. No stomal hernia right l ower quadrant. Post right hemicolectomy. APPENDIX: Surgically absent ABDOMINAL WALL: No masses. No right lower quadrant stomal hernia. PELVIS: No mass or free fluid. Normal bladder. BONES: No significant or acute findings. OTHER: No other significant finding. IMPRESSION: Bilateral upper lobe airspace disease, edema versus pneumonia. Trace free intraperitoneal air post revision of right lower quadrant ileostomy. No bowel obstruction . No stomal hernia. Post right hemicolectomy for colon cancer. No CT evidence of metastatic disease over the chest abdom en or pelvis TECHNICAL DOCUMENTATION: JOB ID: [id number] Quality ID # [id number]: Final reports with documentation of one or more dose reduction techniques (e.g., Au tomated exposure control, adjustment of the mA and/or kV according to patient size, use of iterative reconstruction technique) 2010 [employer]- All Rights Reserved COMPARISON: None. CT abdomen pelvis 01/22/2018, 05/30/2017 KUB 08/05/2018 AP chest 05/16/2018 CONTRAST TYPE AND DOSE: 72 mL of IV Omnipaque 350- low osmolar. Reading location - IP/workstation name: [email or web address]
[2018-09-11] MEDS: RINGERS SOLUTION,LACTATED 1,000 ML IV PRN ×2 (13:26→19:20)
[2018-09-11] MEDS ORDERED: ONDANSETRON HCL INJ/PF 4 MG/2 ML SDV ONE (15:40)
[2018-09-11] MEDS ORDERED: DIPHENHYDRAMINE HCL 50 MG/ML VIAL ONE (15:40)
[2018-09-11] MEDS ORDERED: GLUCAGON,HUMAN RECOMB 1 MG INJ ONE (15:41)
[2018-09-11] MEDS ORDERED: NALOXONE HCL INJ/PF 0.4 MG/1 ML SDV ONE (15:41)
[2018-09-11] MEDS ORDERED: EPINEPHRINE INJ 1 MG/10 ML DISP.SYRIN ONE (15:41)
[2018-09-11] MEDS ORDERED: FLUMAZENIL INJ 0.5 MG/5 ML VIAL ONE (15:41)
[2018-09-11] MEDS: MIDAZOLAM 2 MG/2 ML INJ ONE ×5 (16:30→16:44)
[2018-09-11] MEDS: FENTANYL CITRATE INJ/PF 100 MCG/2 ML AMPUL ONE ×2 (16:34→16:47)
--- NOTE | 2018-09-11 17:27 | Operative Report ---
Nonrecallable Operative Report DATE OF SURGERY: 09/11/18 PREOPERATIVE DIAGNOSIS: 1. History of stage III colon carcinoma, status post extended right hemicolectomy, loop ileostomy. 2. Status post recent ileostomy revision POSTOPERATIVE DIAGNOSIS: Same with rectal polyp at 12 cm from anal verge OPERATION: Colonoscopy to ilio transverse colon anastomosis. Mid rectal polyp removal SURGEON: ED BRANDT ANESTHESIA: Moderate Sedation TISSUE REMOVED OR ALTERED: 1 polyp COMPLICATIONS: None ESTIMATED BLOOD LOSS: Scant INTRAOPERATIVE FINDINGS: See below PROCEDURE: Patient was taken from the fifth floor to the procedure room in the endoscopy suite was placed in a semirecumbent position monitoring devices were attached, and appropriate level of conscious sedation induced. Surgical plan surgical timeout were conducted. Rectal exam was performed. The patient sphincter tone was extremely elevated. I spent a few moments leaving my index finger anal canal of having him relax somewhat. The pediatric colonoscope was now advanced to the anal rectal canal all the way through the left colon, through the remaining transverse colon and up to the ilio transverse colon stapled anastomosis. There was gas coming out of the patient's double barrel ileostomy which was decompressed. This was an excellent study on a reasonably well-prepped left colon and of green-yellow stool aspirated. The ileocolonic anastomosis was normal with no evidence of malignancy. The scope was withdrawn through the transverse colon and the descending colon check in the mucosa carefully. No evidence of stricture tumor or any other pathology. The rectum at approximately 12 cm in the anal verge was a small 2 to 3 mm polyp which was photographed, removed with a cold forceps device. Bleeding was minimal. It was withdrawn to the patient's anus. No other pathology seen. Impression: No evidence of malignancy in the defunctionalized ilio transverse and distal colon; small rectal polyp removed. ReCommendations: 1. Will return patient to floor, return to clear liquids 2. Patient's CT scans of the chest abdomen and pelvis showed no evidence of metastatic disease. 2. We will set patient up for ileostomy takedown in the next 48 hours.
[2018-09-12] MEDS: RINGERS SOLUTION,LACTATED 1,000 ML IV PRN ×2 (01:10→22:17)
[2018-09-12] MEDS: AMPICILLIN SODIUM/SULBACTAM NA 3 GM in NORMAL SALINE 100 ML IV SCH ×3 (05:44→22:19)
--- NOTE | 2018-09-12 08:10 | PDOC PROGRESS REPORT ---
Subjective Progress Note for:: 09/12/18 Subjective:: Patient states pain well controlled. He is only on clear liquids, but is happy about plans for further surgery. No other complaints today. Reason For Visit: PROLAPSE, NONREDUCIBLE ILEOSTOMY Physical Exam Vital Signs: Temp Pulse Resp BP Pulse Ox 97.8 F 64 12 124/77 100 09/11/18 18:37 09/11/18 18:37 09/11/18 18:37 09/11/18 18:37 09/11/18 18:37 Intake & Output 09/11/18 09/12/18 09/13/18 06:59 06:59 06:59 Intake Total 3240 2500 100 Output Total 1835 1650 Balance 1405 850 100 Weight 69.853 kg 75.1 kg General appearance: PRESENT: well-developed, well-nourished Head exam: PRESENT: normocephalic Respiratory exam: PRESENT: unlabored Extremities exam: ABSENT: pedal edema Neurological exam: PRESENT: alert, awake, oriented to person, oriented to place, oriented to time, oriented to situation Psychiatric exam: PRESENT: appropriate affect Skin exam: PRESENT: normal color Results Laboratory Results: 09/10/18 04:30 09/10/18 04:30 Impressions: Abdomen/Pelvis CT 09/10/18 00:00 IMPRESSION: Bilateral upper lobe airspace disease, edema versus pneumonia. Trace free intraperitoneal air post revision of right lower quadrant ileostomy. No bowel obstruction. No stomal hernia. Post right hemicolectomy for colon cancer. No CT evidence of metastatic disease over the chest abdomen or pelvis Chest CT 09/10/18 00:00 IMPRESSION: Bilateral upper lobe airspace disease, edema versus pneumonia. Trace free intraperitoneal air post revision of right lower quadrant ileostomy. No bowel obstruction. No stomal hernia. Post right hemicolectomy for colon cancer. No CT evidence of metastatic disease over the chest abdomen or pelvis Assessment & Plan - Diagnosis (1) Colon cancer Qualifiers: Colon location: ascending Qualified Code(s): C18.2 - Malignant neoplasm of ascending colon Is this a current diagnosis for this admission?: Yes Plan: I reviewed the results of the CT scans with the patient. Currently, there is no evidence of metastatic cancer. I agree with plans to reverse colostomy. I have explained to the patient that even if he is free of cancer and has no further treatment, I would still like for him to follow-up in the office about every 3 months. I will arrange. (2) Ileostomy prolapse Is this a current diagnosis for this admission?: Yes Plan: Resolved. Agree with plans for further surgery. I will follow from a distance. Please call with any concerns. I will set up outpatient follow-up with me.
[2018-09-12] MEDS: KETOROLAC TROMETHAMINE INJ/PF 30 MG/1 ML SDV IV PRN (13:59)
--- NOTE | 2018-09-12 17:26 | PDOC PROGRESS REPORT ---
Subjective Progress Note for:: 09/12/18 Subjective:: comfortable Reason For Visit: PROLAPSE, NONREDUCIBLE ILEOSTOMY Physical Exam Vital Signs: Temp Pulse Resp BP Pulse Ox 98.8 F 61 20 137/97 H 99 09/12/18 15:00 09/12/18 15:00 09/12/18 15:00 09/12/18 15:00 09/12/18 15:00 Intake & Output 09/11/18 09/12/18 09/13/18 06:59 06:59 06:59 Intake Total 3240 2500 320 Output Total 1835 1650 450 Balance 1405 850 -130 Weight 69.853 kg 75.1 kg Exam: abdomen is soft. Ileostomy functioning well Results Laboratory Results: 09/10/18 04:30 09/10/18 04:30 Impressions: Abdomen/Pelvis CT 09/10/18 00:00 IMPRESSION: Bilateral upper lobe airspace disease, edema versus pneumonia. Trace free intraperitoneal air post revision of right lower quadrant ileostomy. No bowel obstruction. No stomal hernia. Post right hemicolectomy for colon cancer. No CT evidence of metastatic disease over the chest abdomen or pelvis Chest CT 09/10/18 00:00 IMPRESSION: Bilateral upper lobe airspace disease, edema versus pneumonia. Trace free intraperitoneal air post revision of right lower quadrant ileostomy. No bowel obstruction. No stomal hernia. Post right hemicolectomy for colon cancer. No CT evidence of metastatic disease over the chest abdomen or pelvis Assessment & Plan - Time Time Spent with patient: 15-24 minutes - Inpatient Certification Medical Necessity: Need for Surgery - Plan Summary Plan Summary: For possible reversal of ileostomy tomorrow
[2018-09-13] MEDS: RINGERS SOLUTION,LACTATED 1,000 ML IV PRN (06:00)
[2018-09-13] MEDS: AMPICILLIN SODIUM/SULBACTAM NA 3 GM in NORMAL SALINE 100 ML IV SCH ×3 (06:00→21:11)
--- NOTE | 2018-09-13 12:20 | PDOC PROGRESS REPORT ---
Subjective Progress Note for:: 09/13/18 Reason For Visit: PROLAPSE, NONREDUCIBLE ILEOSTOMY Physical Exam Vital Signs: Temp Pulse Resp BP Pulse Ox 98.4 F 75 16 126/75 H 100 09/12/18 23:48 09/12/18 23:48 09/12/18 23:48 09/12/18 23:48 09/12/18 23:48 Intake & Output 09/12/18 09/13/18 09/14/18 06:59 06:59 06:59 Intake Total 2500 3706 100 Output Total 1650 1850 Balance 850 1856 100 Weight 75.1 kg 75.1 kg General appearance: PRESENT: no acute distress Head exam: PRESENT: atraumatic Respiratory exam: PRESENT: clear to auscultation arabella. ABSENT: chest wall tenderness Cardiovascular exam: PRESENT: RRR Vascular exam: PRESENT: normal capillary refill GI/Abdominal exam: PRESENT: soft. ABSENT: distended Results Laboratory Results: 09/10/18 04:30 09/10/18 04:30 Impressions: Abdomen/Pelvis CT 09/10/18 00:00 IMPRESSION: Bilateral upper lobe airspace disease, edema versus pneumonia. Trace free intraperitoneal air post revision of right lower quadrant ileostomy. No bowel obstruction. No stomal hernia. Post right hemicolectomy for colon cancer. No CT evidence of metastatic disease over the chest abdomen or pelvis Chest CT 09/10/18 00:00 IMPRESSION: Bilateral upper lobe airspace disease, edema versus pneumonia. Trace free intraperitoneal air post revision of right lower quadrant ileostomy. No bowel obstruction. No stomal hernia. Post right hemicolectomy for colon cancer. No CT evidence of metastatic disease over the chest abdomen or pelvis Assessment & Plan - Diagnosis (1) Ileostomy prolapse Is this a current diagnosis for this admission?: Yes - Plan Summary Plan Summary: This is a 28-year-old male status post revision of his right lower quadrant ileostomy for an urgent/emergent bowel obstruction with necrosis of the ileo stomy. The patient is requesting reversal of his ileostomy at this time. This has been discussed at length with oncology. I believe this is a reasonable course of action. I have discussed ileostomy reversal with the patient. Risks/benefits discussed, informed consent obtained, and all questions answered. I will proceed with ileostomy reversal today.
[2018-09-13] MEDS ORDERED: BUPIVACAINE HCL 0.25 % INJ/PF (2.5 MG/1 ML) 30 ML VIAL ONE (12:50)
[2018-09-13] MEDS ORDERED: HYDROMORPHONE HCL INJ/PF 2 MG/ML AMPULE ONE ×2 (12:57→15:14)
[2018-09-13] MEDS ORDERED: PROPOFOL INJ 200 MG/20 ML VIAL IV ONE (12:58)
[2018-09-13] MEDS ORDERED: FENTANYL CITRATE INJ/PF 100 MCG/2 ML AMPUL ONE (12:58)
[2018-09-13] MEDS ORDERED: MIDAZOLAM 2 MG/2 ML INJ ONE (12:58)
[2018-09-13] MEDS ORDERED: PROMETHAZINE HCL INJ 25 MG/1 ML VIAL IV PRN ×2 (14:03)
[2018-09-13] MEDS ORDERED: FENTANYL CITRATE INJ/PF 100 MCG/2 ML AMPUL IV PRN ×3 (14:03)
[2018-09-13] MEDS ORDERED: ONDANSETRON HCL INJ/PF 4 MG/2 ML SDV IV PRN (14:03)
[2018-09-13] MEDS ORDERED: OXYCODONE-ACETAMINOPHEN 5-325 MG TABLET PO PRN ×2 (14:03)
[2018-09-13] MEDS ORDERED: DIPHENHYDRAMINE HCL 50 MG/ML VIAL IV PRN (14:03)
[2018-09-13] MEDS ORDERED: MEPERIDINE HCL/PF INJ 25 MG/1 ML DISP.SYRIN IV PRN (14:03)
[2018-09-13] MEDS ORDERED: SUGAMMADEX SODIUM 200 MG/2 ML SDV IV ONE (14:29)
[2018-09-13] MEDS ORDERED: LIDOCAINE 2% INJ-PF (20 MG/ML) 2 ML AMPUL ONE (14:45)
[2018-09-13] MEDS ORDERED: ROCURONIUM BROMIDE INJ 50 MG/5 ML VIAL IV ONE (14:45)
[2018-09-13] MEDS ORDERED: DEXAMETHASONE SOD PHOSPHATE INJ 4 MG/1 ML VIAL ONE (14:45)
[2018-09-13] MEDS ORDERED: ONDANSETRON HCL INJ/PF 4 MG/2 ML SDV ONE (14:45)
[2018-09-13] MEDS ORDERED: KETOROLAC TROMETHAMINE 60 MG/2 ML SDV ONE (14:45)
[2018-09-13] MEDS: MEPERIDINE HCL/PF INJ 25 MG/1 ML DISP.SYRIN ONE ×2 (14:49→14:54)
--- NOTE | 2018-09-13 15:02 | Operative Report ---
Nonrecallable Operative Report DATE OF SURGERY: 09/13/18 PREOPERATIVE DIAGNOSIS: Unwanted right lower quadrant ileostomy, status post colon resection. POSTOPERATIVE DIAGNOSIS: Same as above OPERATION: 1. Ileostomy reversal. 2. Closure of right lower quadrant abdominal wall defect with Loman Bio-A hernia mesh. SURGEON: LISANDRO GUILLEN STATION REPAIRER: BETZAIDA BEGUM ANESTHESIA: GA TISSUE REMOVED OR ALTERED: Portion of terminal ileum COMPLICATIONS: None apparent ESTIMATED BLOOD LOSS: Minimal PROCEDURE: Drains/implants: 9 x 15 cm Loman Bio-A hernia mesh. Procedure in detail: After informed consent was obtained, the patient was brought into the operating room and laid in the supine position. The area of the abdomen was prepped and draped in a normal sterile fashion. The previously placed circumferential Vicryl sutures were divided at the edge of the double barrel ileostomy. The ileostomy was easily retracted. A finger sweep was performed ensuring that there were no adhesions to the anterior abdominal wall. A side to side, stapled anastomosis was created with the ANGELA-75 stapling device. The resultant defect was closed, also using the ANGELA-75 stapling device. 3-0 Vicryl crotch stitches were placed x2. The anastomosis was tested, and found to be air and watertight. The anastomosis was then returned to the abdominal cavity. The fascial defect was rather large, and it was felt prudent to leave a Loman Bio-A absorbable hernia mesh to buttress the closure. The hernia mesh was sutured to the abdominal wall in mattress fashion in 4 quadrants using 0 Prolene suture. The fascia was then reapproximated using #1 PDS suture in simple running fashion. A Xeroform gauze was placed into the wound. The skin was closed over the Xeroform gauze, leaving the medial and lateral portions open. A dressing was placed, and the procedure was concluded. All sponge, instrument, and needle counts were correct x2. Condition: Stable. Betzaida Begum PA-C was scrubbed and present the entirety the procedure. She assisted with all portions of the procedure including takedown of the ileostomy, creation of the anastomosis, insertion of the hernia mesh, closure of the fascia, and closure of the skin.
[2018-09-13] MEDS: FENTANYL CITRATE INJ/PF 100 MCG/2 ML AMPUL ONE ×2 (15:05→15:10)
[2018-09-13] MEDS: MORPHINE SULFATE 10 MG/ML INJ IV PRN ×2 (16:52→21:11)
[2018-09-13] MEDS: ONDANSETRON HCL INJ/PF 4 MG/2 ML SDV IV PRN ×2 (17:55→22:20)
[2018-09-13] MEDS: HYDROCODONE/ACETAMINOPHEN 10-325 MG TABLET PO PRN ×2 (17:55→22:18)
[2018-09-13] MEDS: FAMOTIDINE 20 MG TABLET PO SCH (21:10)
[2018-09-13] MEDS: KETOROLAC TROMETHAMINE INJ/PF 30 MG/1 ML SDV IV SCH (21:11)
[2018-09-14] MEDS: RINGERS SOLUTION,LACTATED 1,000 ML IV PRN (01:23)
[2018-09-14] MEDS: MORPHINE SULFATE 10 MG/ML INJ IV PRN ×4 (01:24→18:20)
[2018-09-14] MEDS: HYDROCODONE/ACETAMINOPHEN 10-325 MG TABLET PO PRN ×4 (04:28→19:48)
[2018-09-14] MEDS: ONDANSETRON HCL INJ/PF 4 MG/2 ML SDV IV PRN ×4 (04:28→21:24)
[2018-09-14] MEDS: AMPICILLIN SODIUM/SULBACTAM NA 3 GM in NORMAL SALINE 100 ML IV SCH ×3 (06:15→21:24)
[2018-09-14] MEDS: KETOROLAC TROMETHAMINE INJ/PF 30 MG/1 ML SDV IV SCH ×3 (06:16→21:25)
--- NOTE | 2018-09-14 07:37 | PDOC PROGRESS REPORT ---
Subjective Progress Note for:: 09/14/18 Subjective:: Patient states that surgery went well. He still has some discomfort and nausea. He had Hiccups earlier. Able to tolerate clear liquids. He is asking if his port can be removed today. Reason For Visit: PROLAPSE, NONREDUCIBLE ILEOSTOMY Physical Exam Vital Signs: Temp Pulse Resp BP Pulse Ox 98.2 F 75 16 135/84 H 100 09/14/18 00:00 09/14/18 00:00 09/14/18 00:00 09/14/18 00:00 09/14/18 00:00 Intake & Output 09/13/18 09/14/18 09/15/18 06:59 06:59 06:59 Intake Total 3706 2920 Output Total 1850 1110 Balance 1856 1810 Weight 75.1 kg 75.1 kg General appearance: PRESENT: well-developed, well-nourished Head exam: PRESENT: normocephalic Respiratory exam: PRESENT: unlabored GI/Abdominal exam: PRESENT: soft, other - Incision covered with dressing. Extremities exam: ABSENT: pedal edema Musculoskeletal exam: PRESENT: normal inspection Neurological exam: PRESENT: alert, awake Psychiatric exam: PRESENT: appropriate affect Skin exam: PRESENT: normal color Results Laboratory Results: 09/10/18 04:30 09/10/18 04:30 Impressions: Abdomen/Pelvis CT 09/10/18 00:00 IMPRESSION: Bilateral upper lobe airspace disease, edema versus pneumonia. Trace free intraperitoneal air post revision of right lower quadrant ileostomy. No bowel obstruction. No stomal hernia. Post right hemicolectomy for colon cancer. No CT evidence of metastatic disease over the chest abdomen or pelvis Chest CT 09/10/18 00:00 IMPRESSION: Bilateral upper lobe airspace disease, edema versus pneumonia. Trace free intraperitoneal air post revision of right lower quadrant ileostomy. No bowel obstruction. No stomal hernia. Post right hemicolectomy for colon cancer. No CT evidence of metastatic disease over the chest abdomen or pelvis Assessment & Plan - Diagnosis (1) Colon cancer Qualifiers: Colon location: ascending Qualified Code(s): C18.2 - Malignant neoplasm of ascending colon Is this a current diagnosis for this admission?: Yes Plan: Stage III-IV at diagnosis. He only completed part of his planned adjuvant therapy. He has genetics suggesting high risk of recurrence/new cancers. He will need very close monitoring and follow-up. (2) Ileostomy prolapse Is this a current diagnosis for this admission?: Yes Plan: s/p reversal of iliostomy - per surgery. - Plan Summary Plan Summary: Patient requests removal of port. He will discuss this with surgeon today.
[2018-09-14] MEDS: FAMOTIDINE 20 MG TABLET PO SCH ×2 (09:19→21:24)
--- NOTE | 2018-09-14 09:39 | PDOC PROGRESS REPORT ---
Subjective Progress Note for:: 09/14/18 Subjective:: POD #1 post reversal of ileostomy Feeling better with sensation of gurgling of bowels but no flatus yet. Tolerated clears this am Reason For Visit: PROLAPSE, NONREDUCIBLE ILEOSTOMY Physical Exam Vital Signs: Temp Pulse Resp BP Pulse Ox 98.2 F 75 16 135/84 H 100 09/14/18 00:00 09/14/18 00:00 09/14/18 00:00 09/14/18 00:00 09/14/18 00:00 Intake & Output 09/13/18 09/14/18 09/15/18 06:59 06:59 06:59 Intake Total 3706 2920 100 Output Total 1850 1110 Balance 1856 1810 100 Weight 75.1 kg 75.1 kg Exam: Dressing intact. Mild blood tinged. Abdomen soft non tender Results Laboratory Results: 09/10/18 04:30 09/10/18 04:30 Impressions: Abdomen/Pelvis CT 09/10/18 00:00 IMPRESSION: Bilateral upper lobe airspace disease, edema versus pneumonia. Trace free intraperitoneal air post revision of right lower quadrant ileostomy. No bowel obstruction. No stomal hernia. Post right hemicolectomy for colon cancer. No CT evidence of metastatic disease over the chest abdomen or pelvis Chest CT 09/10/18 00:00 IMPRESSION: Bilateral upper lobe airspace disease, edema versus pneumonia. Trace free intraperitoneal air post revision of right lower quadrant ileostomy. No bowel obstruction. No stomal hernia. Post right hemicolectomy for colon cancer. No CT evidence of metastatic disease over the chest abdomen or pelvis Assessment & Plan - Time Time Spent with patient: 15-24 minutes - Plan Summary Plan Summary: OK to inctrese diet to full liquids and increase to soft diet when has flatus
[2018-09-14] MEDS ORDERED: HYDROMORPHONE HCL INJ/PF 2 MG/ML AMPULE IV ONE (12:45)
[2018-09-14] MEDS ORDERED: GLUCAGON,HUMAN RECOMB 1 MG INJ SUBCUT PRN (13:11)
[2018-09-14] MEDS ORDERED: DEXTROSE 40% GEL 15 GM TUBE PO PRN ×2 (13:11)
[2018-09-14] MEDS ORDERED: DEXTROSE 50%-WATER 25 GM/50 ML DISP.SYRIN IV PRN ×2 (13:11)
[2018-09-15] MEDS: MORPHINE SULFATE 10 MG/ML INJ IV PRN ×3 (01:53→20:19)
[2018-09-15] MEDS: ONDANSETRON HCL INJ/PF 4 MG/2 ML SDV IV PRN ×5 (01:54→21:41)
[2018-09-15] MEDS: KETOROLAC TROMETHAMINE INJ/PF 30 MG/1 ML SDV IV SCH ×3 (05:34→21:41)
[2018-09-15] MEDS: AMPICILLIN SODIUM/SULBACTAM NA 3 GM in NORMAL SALINE 100 ML IV SCH ×3 (05:35→21:40)
[2018-09-15] MEDS: RINGERS SOLUTION,LACTATED 1,000 ML IV PRN ×2 (05:40→18:14)
[2018-09-15] MEDS: FAMOTIDINE 20 MG TABLET PO SCH ×2 (09:50→21:41)
--- NOTE | 2018-09-15 15:25 | PDOC PROGRESS REPORT ---
Subjective Progress Note for:: 09/15/18 Subjective:: C/o abdominal pains and nausea yesterday and kept NPO Urine is highly colored. Thirsty Reason For Visit: PROLAPSE, NONREDUCIBLE ILEOSTOMY Physical Exam Vital Signs: Temp Pulse Resp BP Pulse Ox 99.1 F 94 16 134/73 H 100 09/15/18 10:57 09/15/18 10:57 09/15/18 10:57 09/15/18 10:57 09/15/18 10:57 Intake & Output 09/14/18 09/15/18 09/16/18 06:59 06:59 06:59 Intake Total 2920 2003 100 Output Total 1110 1200 200 Balance 1810 803 -100 Weight 75.1 kg 75.2 kg Exam: packing from incision removed. Looks clean and dry. No flatus yet Abdomen is soft to firm with mild tenderness Results Laboratory Results: 09/10/18 04:30 09/10/18 04:30 Impressions: Abdomen/Pelvis CT 09/10/18 00:00 IMPRESSION: Bilateral upper lobe airspace disease, edema versus pneumonia. Trace free intraperitoneal air post revision of right lower quadrant ileostomy. No bowel obstruction. No stomal hernia. Post right hemicolectomy for colon cancer. No CT evidence of metastatic disease over the chest abdomen or pelvis Chest CT 09/10/18 00:00 IMPRESSION: Bilateral upper lobe airspace disease, edema versus pneumonia. Trace free intraperitoneal air post revision of right lower quadrant ileostomy. No bowel obstruction. No stomal hernia. Post right hemicolectomy for colon cancer. No CT evidence of metastatic disease over the chest abdomen or pelvis Assessment & Plan - Time Time Spent with patient: 15-24 minutes - Inpatient Certification Medical Necessity: Need For IV Fluids, Need for IV Antibiotics - Plan Summary Plan Summary: Keep NPO Increase IVF D/C littlejanie bates
[2018-09-16] MEDS: MORPHINE SULFATE 10 MG/ML INJ IV PRN ×3 (00:04→22:15)
[2018-09-16] MEDS: RINGERS SOLUTION,LACTATED 1,000 ML IV PRN ×2 (02:03→13:30)
[2018-09-16 04:37] LABS: HEMATOCRIT 33.4 % (37.9-51.0); HEMOGLOBIN 11.1 g/dL (13.5-17.0); MEAN CORPUSCULAR HEMOGLOBIN 26.8 pg (27.0-33.4); MEAN CORPUSCULAR HGB CONC 33.1 g/dL (32.0-36.0); MEAN CORPUSCULAR VOLUME 81 fl (80-97); PLATELET COUNT 333 10^3/uL (150-450); RED BLOOD COUNT 4.13 10^6/uL (4.35-5.55); RED CELL DISTRIBUTION WIDTH 20.9 % (11.5-14.0); WHITE BLOOD COUNT 16.3 10^3/uL (4.0-10.5)
[2018-09-16 05:02] LABS: ANION GAP 10 (5-19); BLOOD UREA NITROGEN 12 mg/dL (7-20); CALCIUM 8.7 mg/dL (8.4-10.2); CARBON DIOXIDE 25 mmol/L (22-30); CHLORIDE 102 mmol/L (98-107); GLUCOSE 79 mg/dL (75-110); POTASSIUM 3.8 mmol/L (3.6-5.0); SODIUM 136.5 mmol/L (137-145)
[2018-09-16 05:06] LABS: ABSOLUTE LYMPHOCYTES# (MANUAL) 0.3 10^3/uL (0.5-4.7); ABSOLUTE MONOCYTES # (MANUAL) 0.8 10^3/uL (0.1-1.4); ANISOCYTOSIS 2+; BASOPHILS % (MANUAL) 0 % (0-2); EOSINOPHILS % (MANUAL) 0 % (0-6); LYMPHOCYTES % (MANUAL) 2 % (13-45); MONOCYTES % (MANUAL) 5 % (3-13); PLATELET COMMENT ADEQUATE; SEGMENTED NEUTROPHILS % (MAN) 93 % (42-78); TOTAL CELLS COUNTED 100; TOXIC VACUOLATION PRESENT
[2018-09-16] MEDS: KETOROLAC TROMETHAMINE INJ/PF 30 MG/1 ML SDV IV SCH ×3 (05:28→21:09)
[2018-09-16] MEDS: AMPICILLIN SODIUM/SULBACTAM NA 3 GM in NORMAL SALINE 100 ML IV SCH ×3 (05:28→22:15)
--- NOTE | 2018-09-16 09:21 | RADIOLOGY REPORT (SQ) ---
EXAM DESCRIPTION: KUB/ABDOMEN (SINGLE VIEW) COMPLETED DATE/TIME: 09/16/2018 8:49 am REASON FOR STUDY: abdominal pain after ileostomy reversal COMPARISON: 08/05/2018 NUMBER OF VIEWS: One view. TECHNIQUE: Supine radiographic image of the abdomen acquired. LIMITATIONS: None FINDINGS: BOWEL GAS PATTERN: Scattered small bowel loops without significant dilatation. CALCIFICATIONS: No suspicious calcifications. SOFT TISSUES: No gross mass or suggestion of organomegaly. HARDWARE: Right upper quadrant clips. BONES: No acute fracture. No worrisome bone lesions. OTHER: No other significant finding. IMPRESSION: Findings most typical of adynamic ileus. TECHNICAL DOCUMENTATION: JOB ID: [id number] [employer]- All Rights Reserved Reading location - IP/workstation name: [email or web address]
[2018-09-16] MEDS: FAMOTIDINE 20 MG TABLET PO SCH ×2 (09:35→22:15)
[2018-09-16] MEDS: HYDROCODONE/ACETAMINOPHEN 10-325 MG TABLET PO PRN ×2 (13:05→18:47)
--- NOTE | 2018-09-16 18:53 | PDOC PROGRESS REPORT ---
Subjective Progress Note for:: 09/16/18 Reason For Visit: PROLAPSE, NONREDUCIBLE ILEOSTOMY Physical Exam Vital Signs: Temp Pulse Resp BP Pulse Ox 98.7 F 79 16 123/67 100 09/16/18 16:25 09/16/18 16:25 09/16/18 16:25 09/16/18 16:25 09/16/18 16:25 Intake & Output 09/15/18 09/16/18 09/17/18 06:59 06:59 06:59 Intake Total 20025 Output Total 1200 850 475 Balance 803 1399 790 Weight 75.2 kg 73.4 kg Results Laboratory Results: 09/16/18 03:56 09/16/18 03:56 09/16/18 09/16/18 03:56 03:56 WBC 16.3 H RBC 4.13 L Hgb 11.1 L Hct 33.4 L MCV 81 MCH 26.8 L MCHC 33.1 RDW 20.9 H Plt Count 333 Seg Neutrophils % Not Reportable Lymphocytes % Not Reportable Monocytes % Not Reportable Eosinophils % Not Reportable Basophils % Not Reportable Absolute Neutrophils Not Reportable Absolute Lymphocytes Not Reportable Absolute Monocytes Not Reportable Absolute Eosinophils Not Reportable Absolute Basophils Not Reportable Sodium 136.5 L Potassium 3.8 Chloride 102 Carbon Dioxide 25 Anion Gap 10 BUN 12 Creatinine 0.71 Est GFR ( Amer) > 60 Est GFR (Non-Af Amer) > 60 Glucose 79 Calcium 8.7 Impressions: Abdomen/Pelvis CT 09/10/18 00:00 IMPRESSION: Bilateral upper lobe airspace disease, edema versus pneumonia. Trace free intraperitoneal air post revision of right lower quadrant ileostomy. No bowel obstruction. No stomal hernia. Post right hemicolectomy for colon cancer. No CT evidence of metastatic disease over the chest abdomen or pelvis Chest CT 09/10/18 00:00 IMPRESSION: Bilateral upper lobe airspace disease, edema versus pneumonia. Trace free intraperitoneal air post revision of right lower quadrant ileostomy. No bowel obstruction. No stomal hernia. Post right hemicolectomy for colon cancer. No CT evidence of metastatic disease over the chest abdomen or pelvis KUB X-Ray 09/16/18 06:00 IMPRESSION: Findings most typical of adynamic ileus. Assessment & Plan - Diagnosis (1) Ileostomy prolapse Is this a current diagnosis for this admission?: Yes - Plan Summary Plan Summary: This is a 28-year-old male status post ileostomy reversal. The patient is doing well today. He denies nausea or vomiting. He does report some abdominal discomfort. He is passing flatus. I will advance the patient's diet today. Awaiting return of normal bowel function. If the patient continues to progress well, anticipate discharge soon.
[2018-09-17] MEDS: HYDROCODONE/ACETAMINOPHEN 10-325 MG TABLET PO PRN ×3 (01:38→18:30)
[2018-09-17] MEDS: KETOROLAC TROMETHAMINE INJ/PF 30 MG/1 ML SDV IV SCH ×3 (05:08→21:34)
[2018-09-17] MEDS: AMPICILLIN SODIUM/SULBACTAM NA 3 GM in NORMAL SALINE 100 ML IV SCH (05:09)
[2018-09-17] MEDS: FAMOTIDINE 20 MG TABLET PO SCH ×2 (09:42→21:34)
--- NOTE | 2018-09-17 12:14 | PDOC PROGRESS REPORT ---
Subjective Progress Note for:: 09/17/18 Reason For Visit: PROLAPSE, NONREDUCIBLE ILEOSTOMY Physical Exam Vital Signs: Temp Pulse Resp BP Pulse Ox 99.0 F 88 16 142/68 H 98 09/16/18 23:55 09/16/18 23:55 09/16/18 23:55 09/16/18 23:55 09/16/18 23:55 Intake & Output 09/16/18 09/17/18 09/18/18 06:59 06:59 06:59 Intake Total 2719 3010 Output Total 309 670 Balance 1869 253 Weight 73.4 kg 73.4 kg Results Laboratory Results: 09/16/18 03:56 09/16/18 03:56 Impressions: Abdomen/Pelvis CT 09/10/18 00:00 IMPRESSION: Bilateral upper lobe airspace disease, edema versus pneumonia. Trace free intraperitoneal air post revision of right lower quadrant ileostomy. No bowel obstruction. No stomal hernia. Post right hemicolectomy for colon cancer. No CT evidence of metastatic disease over the chest abdomen or pelvis Chest CT 09/10/18 00:00 IMPRESSION: Bilateral upper lobe airspace disease, edema versus pneumonia. Trace free intraperitoneal air post revision of right lower quadrant ileostomy. No bowel obstruction. No stomal hernia. Post right hemicolectomy for colon cancer. No CT evidence of metastatic disease over the chest abdomen or pelvis KUB X-Ray 09/16/18 06:00 IMPRESSION: Findings most typical of adynamic ileus. Assessment & Plan - Diagnosis (1) Ileostomy prolapse Is this a current diagnosis for this admission?: Yes - Plan Summary Plan Summary: This is a 28-year-old male status post ileostomy reversal. The patient is doing well today. He denies nausea or vomiting. He is passing flatus and having bowel movements. I have encouraged the pt to attempt to eat soild food today. He did not eat any solid food yesterday "because he was scared to". If the patient can tolerate a regular diet, anticipate discharge soon. Pt still on abx from previous necrotic bowel --> d/c abx today. OOB/ambulate.
[2018-09-18] MEDS: KETOROLAC TROMETHAMINE INJ/PF 30 MG/1 ML SDV IV SCH (06:02)
[2018-09-18] MEDS: FAMOTIDINE 20 MG TABLET PO SCH (09:05)
--- NOTE | 2018-09-18 10:50 | PDOC DISCHARGE SUMMARY ---
General - Admit/Disc Date/PCP Admission Date/Primary Care Provider: 09/10/18 07:08 Discharge Date: 09/18/18 - Discharge Diagnosis (1) Ileostomy prolapse Is this a current diagnosis for this admission?: Yes - Additional Information Resuscitation Status: Full Code Home Medications: Loperamide HCl [Imodium 2 mg Capsule] 2 mg PO Q4HP PRN 05/16/18 Ondansetron HCl [Zofran 8 mg Tablet] 8 mg PO Q8HP PRN 09/10/18 Promethazine HCl [Phenergan 25 mg Tablet] 25 mg PO Q6HP PRN 09/10/18 History of Present Illness History of Present Illness: ELOISE FLETCHER is a 28 year old male admitted with prolapse and necrosis of his ileostomy. The patient underwent emergent ileostomy revision. He was taken to the floor afterward in stable condition. Hospital Course Hospital Course: The patient was admitted to the hospital. He subsequently underwent colonoscopy, confirming that his ileocolic anastomosis was intact and normal. The patient was requesting ileostomy reversal. Considering that his anastomosis was in good order and he was stable, this was feasible. Patient was taken to the operating room where open ileostomy reversal was performed. The patient was again taken to the floor in stable condition. Over the subsequent days the patient began ambulating, tolerating a diet, and having normal bowel function. The patient denies any fevers or chills at this time. His wound is healing well. By 09/18/2018 the patient had reached maximal hospital benefit, and was fit for discharge. Physical Exam Vital Signs: Temp Pulse Resp BP Pulse Ox 98.6 F 89 18 131/82 H 99 09/18/18 08:23 09/18/18 08:23 09/18/18 08:23 09/18/18 08:23 09/18/18 08:23 Intake & Output 09/17/18 09/18/18 09/19/18 06:59 06:59 06:59 Intake Total 3010 1540 Output Total 475 Balance 2535 1540 Weight 73.4 kg 73.4 kg Results Laboratory Results: 09/16/18 03:56 09/16/18 03:56 Impressions: Abdomen/Pelvis CT 09/10/18 00:00 IMPRESSION: Bilateral upper lobe airspace disease, edema versus pneumonia. Trace free intraperitoneal air post revision of right lower quadrant ileostomy. No bowel obstruction. No stomal hernia. Post right hemicolectomy for colon cancer. No CT evidence of metastatic disease over the chest abdomen or pelvis Chest CT 09/10/18 00:00 IMPRESSION: Bilateral upper lobe airspace disease, edema versus pneumonia. Trace free intraperitoneal air post revision of right lower quadrant ileostomy. No bowel obstruction. No stomal hernia. Post right hemicolectomy for colon cancer. No CT evidence of metastatic disease over the chest abdomen or pelvis KUB X-Ray 09/16/18 06:00 IMPRESSION: Findings most typical of adynamic ileus. Qualifiers - * PATIENT BEING DISCHARGED WITH ANY OF THE FOLLOWING DIAGNOSIS: No Acute Heart Failure - Is this a Heart Failure Patient?: No Plan Discharge Plan: Discharge home. Diet as tolerated. Activity: No lifting greater than 10 pounds x 6 weeks. Follow-up with me at [facility] in 7 to 10 days. [place] 5/325 mg p.o. every 6 hours as needed for pain. Ibuprofen 800 mg p.o. 3 times daily with meals. Okay to shower. Time Spent: Less than 30 Minutes
[2018-09-18 11:57] VITALS: BP 128/81
== END 2018-09-18 12:45 | disposition home or self-care (01) | DRG 330 ==
LOC: ER 03:52 → INTOOBSV 07:07 → EH 07:07 → OBSVTOIN 07:08 → 5 11:08
PROVIDERS: ADMIT Surgery; ATTEND Surgery
PROC: 0DBB0ZZ Excision of Ileum, Open Approach (ICD-10-PCS; 2018-09-10)
PROC: 0DBP8ZX Excision of Rectum, Via Natural or Artificial Opening Endoscopic, Diagnostic (ICD-10-PCS; 2018-09-11)
PROC: 0WUF0JZ Supplement Abdominal Wall with Synthetic Substitute, Open Approach (ICD-10-PCS; 2018-09-13)
PROC: 0DBB0ZZ Excision of Ileum, Open Approach (ICD-10-PCS; principal; 2018-09-13 13:45)
DX: K94.19 Other complications of enterostomy (principal); C18.2 Malignant neoplasm of ascending colon; Y83.3 Surgical operation with formation of external stoma as the cause of abnormal reaction of the patient, or of later complication, without mention of misadventure at the time of the procedure; E86.0 Dehydration; K62.1 Rectal polyp; Z79.899 Other long term (current) drug therapy; Z92.21 Personal history of antineoplastic chemotherapy
CPT/HCPCS: 36415; 45380; 71260; 74018; 74177; 790; 80048; 80053; 840; 85025; 88305; 88307; 96361; 96374; 96375; 96376; 99284; C1781; C9290; J0171; J0295; J0330; J1100; J1170; J1200; J1610; J1885; J2175; J2250; J2270; J2310; J2405; J2704; J3010; J3490; J7030; J7050; J7120

== ENCOUNTER 2018-09-19 01:47 | Inpatient (IN) | payer BC ==
--- NOTE | 2018-09-19 02:46 | ER Document Report ---
ED General <SONIA BAUTISTAIAN - Last Filed: 09/19/18 03:42> - General TRAVEL OUTSIDE OF THE [place] IN LAST 30 DAYS: No <OLIVA MURO - Last Filed: 09/19/18 08:02> - General Chief Complaint: Weakness Stated Complaint: NAUSEA/WEAKNESS/POST OP PAIN Time Seen by Provider: 09/19/18 02:37 Notes: Patient is a 28-year-old male that comes to the emergency department for chief complaint of weakness beginning last night. He states that he did not pass out, he does not have abdominal pain, he states he just feels really weak. He denies shortness of breath or chest pain. He denies fever/chills, nausea/vomiting, states he had a bowel movement earlier and did not notice blood. He is status post ileostomy reversal on 09/10/[address] Tinoco. He reports a previous history of pancreatic cancer, denies medical history otherwise, denies any daily medications at this time. (OLIVA MURO) - Related Data Allergies/Adverse Reactions: No Known Allergies Allergy (Verified 09/19/18 01:50) Past Medical History - General Information source: Patient - Social History Smoking Status: Never Smoker Frequency of alcohol use: None Drug Abuse: None Lives with: Alone Family History: None, Reviewed & Not Pertinent - Past Medical History Cardiac Medical History: Denies: Hx Coronary Artery Disease, Hx Heart Attack, Hx Hypertension Pulmonary Medical History: Denies: Hx Asthma, Hx Bronchitis, Hx COPD, Hx Pneumonia Neurological Medical History: Denies: Hx Cerebrovascular Accident, Hx Seizures Renal/ Medical History: Denies: Hx Peritoneal Dialysis Malignancy Medical History: Reports Hx Colorectal Cancer Musculoskeletal Medical History: Denies Hx Arthritis Past Surgical History: Reports: Hx Abdominal Surgery - exploratory lap, Other - R extended hemicolectomy, loop ileostomy 03/2018 - Immunizations Hx Diphtheria, Pertussis, Tetanus Vaccination: Yes <OLIVA MURO - Last Filed: 09/19/18 08:02> Review of Systems - Review of Systems Constitutional: See HPI EENT: No symptoms reported Cardiovascular: No symptoms reported Respiratory: No symptoms reported Gastrointestinal: See HPI Genitourinary: No symptoms reported Male Genitourinary: No symptoms reported Musculoskeletal: No symptoms reported Skin: No symptoms reported Hematologic/Lymphatic: No symptoms reported Neurological/Psychological: No symptoms reported <OLIVA MURO - Last Filed: 09/19/18 08:02> Physical Exam <OLIVA MURO - Last Filed: 09/19/18 08:02> - Vital signs Vitals: Temp Pulse Resp BP Pulse Ox 97.6 F 70 28 H 152/80 H 100 09/19/18 01:52 09/19/18 01:52 09/19/18 01:52 09/19/18 01:52 09/19/18 01:52 - Notes Notes: GENERAL: Patient very ill-appearing, pale, diaphoretic, sluggish HEAD: Normocephalic, atraumatic. EYES: Pupils equal, round, and reactive to light. Extraocular movements intact. ENT: Oral mucosa moist, tongue midline. Oropharynx unremarkable. Airway patent. NECK: Full range of motion. Supple. Trachea midline. LUNGS: Clear to auscultation bilaterally, no wheezes, rales, or rhonchi. No respiratory distress. HEART: Regular rate and rhythm. No murmur ABDOMEN: Soft, non-tender. Non-distended. Bowel sounds present in all 4 quadrants. There is a stapled wound over the right mid upper abdomen, horizontal, shahab in place except where one appears to have come out. There is no purulent drainage, abnormal erythema, or foul smell. GENITOURINARY: Deferred EXTREMITIES: Moves all 4 extremities spontaneously. No edema, normal radial and dorsalis pedis pulses bilaterally. No cyanosis. BACK: no cervical, thoracic, lumbar midline tenderness. No saddle anesthesia, normal distal neurovascular exam. Moves all extremities in full range of motion. NEUROLOGICAL: Alert and oriented x3. PSYCH: Normal affect, normal mood. SKIN: Pale and diaphoretic (OLIVA MURO) Course - Laboratory Result Diagrams: 09/19/18 02:57 09/19/18 02:57 <KAREN BAUTISTA - Last Filed: 09/19/18 03:42> - Laboratory Result Diagrams: 09/19/18 02:57 09/19/18 02:57 <OLIVA MURO - Last Filed: 09/19/18 08:02> - Re-evaluation Re-evalutation: 09/19/18 03:42 She was initially evaluated by the PA, and found. This may see the patient's patient is ill-appearing. Patient is well-appearing and that he is very weak appearing. His vital signs are stable. He has a small amount of pain to palpation of his abdomen but not a lot. He is afebrile. It is concerning though that clinically he looks sick. I did review his labs he does have a leukocytosis. Chest x-ray does show a small amount of free air under the diaphragm. I did speak with the surgeon on-call, Dr. Tinoco, informed him of the findings on x-ray as well as the patient's clinical appearance and labs. He says that patient needs a CT scan with oral contrast to rule out anastomotic leak. He requests that we get this study performed. We will try to obtain a CT scan with oral contrast. We will continue to closely monitor the patient. If he has any decompensation in meantime I will call back Dr. Tinoco. (KAREN BAUTISTA) Patient is very ill-appearing. His vital signs are unremarkable. His abdomen appears unremarkable. He is not a clear historian. Small amount of free fluid on x-ray but this is not significantly changed from prior. I did a rectal exam but this does not show blood in the stool. CBC shows leukocytosis with 4% bands. Chemistry is generally unremarkable except for hypokalemia. Lactic acid is normal, troponin is negative. Dr. Bautista did evaluate the patient at bedside because he is so ill-appearing and he is familiar with the patient, he spoke with the surgeon Dr. Tinoco who recommended a CAT scan with oral and IV contrast. Patient vomited some contrast but did appear to keep enough down to have the test performed. CAT scan showing possible ileus, less likely obstruction, no abscess or acute finding otherwise. Called and spoke with Dr. Tinoco again, he states he will evaluate the patient. Dr. Tinoco is admitting the patient to his service. Patient states agreement with plan. (OLIVA MURO) - Vital Signs Vital signs: Temp Pulse Resp BP Pulse Ox 97.7 F 70 12 134/76 H 98 09/19/18 03:23 09/19/18 01:52 09/19/18 06:46 09/19/18 06:46 09/19/18 07:16 - Laboratory Laboratory results interpreted by me: 09/19/18 09/19/18 02:57 02:57 WBC 16.1 H RBC 4.05 L Hgb 10.9 L Hct 32.8 L MCH 26.8 L RDW 21.1 H Plt Count 527 H Seg Neuts % (Manual) 86 H Lymphocytes % (Manual) 4 L Abs Neuts (Manual) 14.5 H Potassium 3.3 L Glucose 123 H ALT 10 L Albumin 3.4 L - EKG Interpretation by Me Additional EKG results interpreted by me: EKG shows sinus rhythm at a rate of 68, QTC of 443. LVH present with what appears to be j-point elevation in leads V2 and V3. No T-wave inversions or ST segment changes in consecutive leads. (OLIVA MURO) Discharge <KAREN BAUTISTA - Last Filed: 09/19/18 03:42> - Discharge Admitting Provider: Surgicalist Unit Admitted: Surgical Floor <OLIVA MURO - Last Filed: 09/19/18 08:02> - Discharge Clinical Impression: Abdominal pain Qualifiers: Abdominal location: generalized Qualified Code(s): R10.84 - Generalized abdominal pain Leukocytosis Qualifiers: Leukocytosis type: unspecified Qualified Code(s): D72.829 - Elevated white blood cell count, unspecified Vomiting Qualifiers: Vomiting type: unspecified Vomiting Intractability: unspecified Nausea presence: with nausea Qualified Code(s): R11.2 - Nausea with vomiting, unspecified Condition: Stable Disposition: ADMITTED OBSERVATION
[2018-09-19] MEDS ORDERED: ONDANSETRON HCL INJ/PF 4 MG/2 ML SDV IV ONE ×2 (02:51→04:59)
[2018-09-19 03:07] LABS: HEMATOCRIT 32.8 % (37.9-51.0); HEMOGLOBIN 10.9 g/dL (13.5-17.0); MEAN CORPUSCULAR HEMOGLOBIN 26.8 pg (27.0-33.4); MEAN CORPUSCULAR HGB CONC 33.2 g/dL (32.0-36.0); MEAN CORPUSCULAR VOLUME 81 fl (80-97); PLATELET COUNT 527 10^3/uL (150-450); RED BLOOD COUNT 4.05 10^6/uL (4.35-5.55); RED CELL DISTRIBUTION WIDTH 21.1 % (11.5-14.0); WHITE BLOOD COUNT 16.1 10^3/uL (4.0-10.5)
[2018-09-19 03:12] LABS: VENOUS BLOOD BASE EXCESS 1.8 mmol/L; VENOUS BLOOD HCO3 26.7 mmol/L (20-32); VENOUS BLOOD PH 7.41 (7.30-7.42)
[2018-09-19 03:17] LABS: INTERNATIONAL RATION (INR) 1.07; PROTHROMBIN TIME 14.5 SEC (11.4-15.4)
[2018-09-19 03:18] LABS: PARTIAL THROMBOPLASTIN TIME 35.4 SEC (23.5-35.8)
--- NOTE | 2018-09-19 03:25 | RADIOLOGY REPORT (SQ) ---
EXAM DESCRIPTION: XR CHEST 1 VIEW COMPLETED DATE/TME: 09/19/2018 03:00 CLINICAL HISTORY: 28 years, Male, weakness COMPARISON: 05/16/2018 chest NUMBER OF VIEWS: 1 TECHNIQUE: Portable chest LIMITATIONS: None. FINDINGS: Heart size normal. Mysxge-w-[id number] catheter with the tip in the SVC. No pneumothorax. Trace of free air under the right hemidiaphragm, also present on prior CT. Subsegmental atelectasis left lung base. IMPRESSION: [id number] catheter tip in the SVC. Subsegmental atelectasis left lung base. copyright 2010 [employer]- All Rights Reserved
[2018-09-19 03:28] LABS: ABSOLUTE LYMPHOCYTES# (MANUAL) 0.6 10^3/uL (0.5-4.7); BAND NEUTROPHILS % (MANUAL) 4 % (3-5); BASOPHILS % (MANUAL) 0 % (0-2); EOSINOPHILS % (MANUAL) 0 % (0-6); LYMPHOCYTES % (MANUAL) 4 % (13-45); MONOCYTES % (MANUAL) 6 % (3-13); SEGMENTED NEUTROPHILS % (MAN) 86 % (42-78); TOTAL CELLS COUNTED 100
[2018-09-19 03:29] LABS: ANISOCYTOSIS 3+; PLATELET COMMENT INCREASED
[2018-09-19 03:36] LABS: ALANINE AMINOTRANSFERASE 10 U/L (21-72); ALBUMIN 3.4 g/dL (3.5-5.0); ALKALINE PHOSPHATASE 88 U/L (38-126); ANION GAP 11 (5-19); ASPARTATE AMINO TRANSFERASE 23 U/L (17-59); BILIRUBIN,DIRECT 0.4 mg/dL (0.0-0.4); BILIRUBIN,TOTAL 0.8 mg/dL (0.2-1.3); BLOOD UREA NITROGEN 14 mg/dL (7-20); CALCIUM 8.8 mg/dL (8.4-10.2); CARBON DIOXIDE 28 mmol/L (22-30); CHLORIDE 101 mmol/L (98-107); GLUCOSE 123 mg/dL (75-110); POTASSIUM 3.3 mmol/L (3.6-5.0); SODIUM 139.5 mmol/L (137-145); TOTAL PROTEIN 7.1 g/dL (6.3-8.2)
[2018-09-19] MEDS ORDERED: MORPHINE SULFATE 10 MG/ML INJ IV ONE (04:58)
--- NOTE | 2018-09-19 06:03 | RADIOLOGY REPORT (SQ) ---
EXAM DESCRIPTION: CT ABDOMEN PELVIS WITH IV CONTRAST COMPLETED DATE/TME: 09/19/2018 00:00 CLINICAL HISTORY: 28 years, Male, weakness, free air, recent ileostomy reversal COMPARISON: 09/10/2018 CT TECHNIQUE: 580 Images stored on PACS. All CT scanners at this facility use dose modulation, iterative reconstruction, and/or weight based dosing when appropriate to reduce radiation dose to as low as reasonably achievable (ALARA). [facility]: Dose Right [facility]: CareDose [facility]: Dose Right [facility]: Teradose 4D [facility]: [employer] LIMITATIONS: None. FINDINGS: Limited evaluation of the lung bases demonstrates small bibasilar pleural effusions with adjacent consolidative change. Osseous structures are grossly intact. Subcentimeter hypodensity in the liver likely tiny cyst or hemangioma. The spleen, adrenal glands, pancreas, kidneys are unremarkable. Gallbladder is present, contracted. Post surgical changes of the upper abdomen. The patient is status post recent ileostomy reversal. Several mildly dilated and thick-walled fluid-filled loops of small bowel are present in the upper abdomen without a discrete transition point, favoring ileus with nonspecific enteritis. A small amount of residual free intraperitoneal air, slightly improved from the prior. Small amount of ascites. IMPRESSION: Patient is status post recent ileostomy reversal with a small amount of residual free intraperitoneal air. There are several fluid-filled mildly dilated thick-walled loops of small bowel without a discrete transition point favoring ileus/enteritis. Incomplete obstruction felt less likely. Continued follow-up recommended. Small amount of ascites. Small bibasilar pleural effusions. Stable subcentimeter hypodensity near the dome of the liver, likely tiny cyst or hemangioma. TECHNICAL DOCUMENTATION: Quality ID # [id number]: Final reports with documentation of one or more dose reduction techniques (e.g., Automated exposure control, adjustment of the mA and/or kV according to patient size, use of iterative reconstruction technique) copyright 2011 [employer]- All Rights Reserved
[2018-09-19] MEDS ORDERED: NORMAL SALINE 1000 ML 1,000 ML IV ONE ×2 (06:08→14:45)
[2018-09-19] MEDS ORDERED: NORMAL SALINE 1000 ML 1,000 ML IV PRN (06:08)
[2018-09-19] MEDS ORDERED: METRONIDAZOLE 500 MG/NS RTU 500 MG/100 ML RTUPB IV ONE (07:15)
--- NOTE | 2018-09-19 07:28 | PDOC H&P ---
History of Present Illness Admission Date/PCP: 09/19/18 06:28 Patient complains of: nausea, vomiting, diaphoresis, diarrhea History of Present Illness: ELOISE FLETCHER is a 28 year old male with a history of right-sided colon cancer. He is approximately 5 days status post ileostomy reversal. The patient was sent home yesterday morning, doing well. He reports that after getting home he progressively began to feel worse, experiencing sweats, nausea, and vomiting. The patient denies fevers or abdominal pain. He is having trouble keeping down even water. Nothing makes his symptoms better or worse. He has been experiencing loose, watery stools. He denies chest pain, shortness of breath, headache, dizziness, orthostasis, blurry vision, hearing difficulties, rash, pruritus. Past Medical History Cardiac Medical History: Denies: Coronary Artery Disease, Myocardial Infarction, Hypertension Pulmonary Medical History: Denies: Asthma, Bronchitis, Chronic Obstructive Pulmonary Disease (COPD), Pneumonia Neurological Medical History: Denies: Seizures Malignancy Medical History: Reports: Colorectal Cancer Musculoskeltal Medical History: Denies: Arthritis Hematology: Denies: Anemia Past Surgical History Past Surgical History: Reports: Other - R extended hemicolectomy, loop ileostomy 03/2018. Ileostomy reversal 09/13 Social History Smoking Status: Former Smoker Frequency of Alcohol Use: None Hx Recreational Drug Use: No Drugs: Marijuana - Advance Directive Resuscitation Status: Full Code Family History Family History: None, Reviewed & Not Pertinent Parental Family History Reviewed: Yes Children Family History Reviewed: Yes Sibling(s) Family History Reviewed.: Yes Medication/Allergy Home Medications: Loperamide HCl [Imodium 2 mg Capsule] 2 mg PO Q4HP PRN 05/16/18 Ondansetron HCl [Zofran 8 mg Tablet] 8 mg PO Q8HP PRN 09/10/18 Promethazine HCl [Phenergan 25 mg Tablet] 25 mg PO Q6HP PRN 09/10/18 Allergies/Adverse Reactions: No Known Allergies Allergy (Verified 09/19/18 01:50) Review of Systems Constitutional: PRESENT: anorexia, chills. ABSENT: fatigue, fever(s), headache(s), weakness Eyes: ABSENT: visual disturbances Ears: ABSENT: hearing changes Nose, Mouth, and Throat: ABSENT: sore throat Cardiovascular: ABSENT: chest pain Respiratory: ABSENT: cough Gastrointestinal: PRESENT: diarrhea, nausea, vomiting. ABSENT: abdominal pain, bloating Genitourinary: ABSENT: difficulty urinating Musculoskeletal: ABSENT: back pain Integumentary: ABSENT: diaphoresis Neurological: ABSENT: confusion, convulsions, dizziness Psychiatric: ABSENT: anxiety, depression Endocrine: ABSENT: cold intolerance, heat intolerance Hematologic/Lymphatic: ABSENT: easy bleeding, easy bruising Physical Exam Vital Signs: Temp Pulse Resp BP Pulse Ox 97.7 F 70 12 134/76 H 98 09/19/18 03:23 09/19/18 01:52 09/19/18 06:46 09/19/18 06:46 09/19/18 07:16 Intake & Output 09/18/18 09/19/18 09/20/18 06:59 06:59 06:59 Weight 76.9 kg General appearance: PRESENT: cooperative Head exam: PRESENT: atraumatic, normocephalic Eye exam: PRESENT: EOMI, PERRLA. ABSENT: scleral icterus Mouth exam: PRESENT: moist, neck supple Neck exam: ABSENT: meningismus, tenderness, thyromegaly, tracheal deviation Respiratory exam: PRESENT: clear to auscultation arabella, unlabored. ABSENT: chest wall tenderness, tachypnea, wheezes Cardiovascular exam: PRESENT: RRR Pulses: PRESENT: normal radial pulses Vascular exam: PRESENT: normal capillary refill GI/Abdominal exam: PRESENT: soft. ABSENT: distended, firm, guarding, tenderness Rectal exam: PRESENT: deferred Extremities exam: ABSENT: clubbing Musculoskeletal exam: ABSENT: deformity Neurological exam: PRESENT: alert, awake, oriented to person, oriented to place Psychiatric exam: ABSENT: agitated, anxious, depressed Focused psych exam: ABSENT: delusional Skin exam: ABSENT: cyanosis, erythema, jaundice Results Laboratory Results: 09/19/18 02:57 09/19/18 02:57 09/19/18 09/19/18 09/19/18 02:57 02:57 02:57 WBC 16.1 H RBC 4.05 L Hgb 10.9 L Hct 32.8 L MCV 81 MCH 26.8 L MCHC 33.2 RDW 21.1 H Plt Count 527 H Seg Neutrophils % Not Reportable Lymphocytes % Not Reportable Monocytes % Not Reportable Eosinophils % Not Reportable Basophils % Not Reportable Absolute Neutrophils Not Reportable Absolute Lymphocytes Not Reportable Absolute Monocytes Not Reportable Absolute Eosinophils Not Reportable Absolute Basophils Not Reportable VBG pH VBG pCO2 VBG HCO3 VBG Base Excess Sodium 139.5 Potassium 3.3 L Chloride 101 Carbon Dioxide 28 Anion Gap 11 BUN 14 Creatinine 0.54 Est GFR ( Amer) > 60 Est GFR (Non-Af Amer) > 60 Glucose 123 H Lactic Acid Calcium 8.8 Total Bilirubin 0.8 AST 23 ALT 10 L Alkaline Phosphatase 88 Total Protein 7.1 Albumin 3.4 L Blood Type O POSITIVE Antibody Screen NEGATIVE 09/19/18 09/19/18 03:00 03:00 WBC RBC Hgb Hct MCV MCH MCHC RDW Plt Count Seg Neutrophils % Lymphocytes % Monocytes % Eosinophils % Basophils % Absolute Neutrophils Absolute Lymphocytes Absolute Monocytes Absolute Eosinophils Absolute Basophils VBG pH 7.41 VBG pCO2 43.0 VBG HCO3 26.7 VBG Base Excess 1.8 Sodium Potassium Chloride Carbon Dioxide Anion Gap BUN Creatinine Est GFR ( Amer) Est GFR (Non-Af Amer) Glucose Lactic Acid 1.7 Calcium Total Bilirubin AST ALT Alkaline Phosphatase Total Protein Albumin Blood Type Antibody Screen 09/19/18 02:57 Troponin I < 0.012 Impressions: Abdomen/Pelvis CT 09/19/18 00:00 IMPRESSION: Patient is status post recent ileostomy reversal with a small amount of residual free intraperitoneal air. There are several fluid-filled mildly dilated thick-walled loops of small bowel without a discrete transition point favoring ileus/enteritis. Incomplete obstruction felt less likely. Continued follow-up recommended. Small amount of ascites. Small bibasilar pleural effusions. Stable subcentimeter hypodensity near the dome of the liver, likely tiny cyst or hemangioma. TECHNICAL DOCUMENTATION: Quality ID # 436: Final reports with documentation of one or more dose reduction techniques (e.g., Automated exposure control, adjustment of the mA and/or kV according to patient size, use of iterative reconstruction technique) copyright 2010 [employer]- All Rights Reserved Chest X-Ray 09/19/18 03:00 IMPRESSION: [id number] catheter tip in the SVC. Subsegmental atelectasis left lung base. copyright 2010 [employer]- All Rights Reserved Assessment & Plan - Diagnosis (1) Diarrhea Qualifiers: Diarrhea type: unspecified type Qualified Code(s): R19.7 - Diarrhea, unspecified Is this a current diagnosis for this admission?: Yes (2) Leukocytosis Qualifiers: Leukocytosis type: unspecified Qualified Code(s): D72.829 - Elevated white blood cell count, unspecified Is this a current diagnosis for this admission?: Yes (3) Vomiting Qualifiers: Vomiting type: unspecified Vomiting Intractability: unspecified Nausea presence: with nausea Qualified Code(s): R11.2 - Nausea with vomiting, unspecified Is this a current diagnosis for this admission?: Yes (4) Dehydration Is this a current diagnosis for this admission?: Yes - Plan Summary Plan Summary: This is a 28-year-old male recently status post ileostomy reversal. He reports that yesterday he began feeling ill, having sweats, nausea, and vomiting. The patient denies any abdominal pain at present. I reviewed his CT scan. I do not see any large collections of air or fluid in the abdominal cavity. Patient does however have leukocytosis with 4 bands present. I will test patient for C. difficile colitis. We will start him on Cipro and Flagyl to cover any occult infectious etiology. Serial abdominal exams. Will follow his clinical course closely.
[2018-09-19] MEDS ORDERED: CIPROFLOXACIN 400 MG/D5W RTU 400 MG/200 ML RTUPB IV ONE (08:00)
[2018-09-19] MEDS: DEXTROSE 5%-LACTATED RINGERS 1,000 ML IV PRN ×2 (08:12→23:36)
[2018-09-19 09:13] LABS: APPEARANCE,URINE CLEAR; BILIRUBIN,URINE NEGATIVE (NEGATIVE); COLOR,URINE YELLOW; GLUCOSE, URINE 50 mg/dL (NEGATIVE); KETONES,URINE 20 mg/dL (NEGATIVE); LEUKOCYTE ESTERASE,URINE NEGATIVE (NEGATIVE); NITRITE,URINE NEGATIVE (NEGATIVE); PROTEIN,URINE 100 mg/dL (NEGATIVE); URINE SPECIFIC GRAVITY > 1.060; UROBILINOGEN,URINE NEGATIVE mg/dL (<2.0)
--- NOTE | 2018-09-19 09:22 | PDOC PROGRESS REPORT ---
Subjective Progress Note for:: 09/19/18 Subjective:: States that he feels better. Less weakness and no further emesis and no diarrhea in the last several hours. Denies any abdominal pain at this time. Reason For Visit: NAUSEA,VOMITING, DIARRHEA Physical Exam Vital Signs: Temp Pulse Resp BP Pulse Ox 97.8 F 63 15 121/73 100 09/19/18 08:00 09/19/18 08:00 09/19/18 08:00 09/19/18 08:00 09/19/18 08:00 Intake & Output 09/18/18 09/19/18 09/20/18 06:59 06:59 06:59 Weight 76.9 kg General appearance: PRESENT: no acute distress, cooperative Respiratory exam: PRESENT: clear to auscultation arabella Cardiovascular exam: PRESENT: RRR GI/Abdominal exam: PRESENT: other - Soft, mildly distended, wound appears clean although one edge has superficial dehiscence but no erythema and no purulent drainage. Patient has mild tenderness of his right abdomen without peritoneal signs. He states that the tenderness is less than earlier in his hospital course. Psychiatric exam: PRESENT: appropriate affect Results Laboratory Results: 09/19/18 02:57 09/19/18 02:57 09/19/18 09/19/18 09/19/18 02:57 02:57 02:57 WBC 16.1 H RBC 4.05 L Hgb 10.9 L Hct 32.8 L MCV 81 MCH 26.8 L MCHC 33.2 RDW 21.1 H Plt Count 527 H Seg Neutrophils % Not Reportable Lymphocytes % Not Reportable Monocytes % Not Reportable Eosinophils % Not Reportable Basophils % Not Reportable Absolute Neutrophils Not Reportable Absolute Lymphocytes Not Reportable Absolute Monocytes Not Reportable Absolute Eosinophils Not Reportable Absolute Basophils Not Reportable VBG pH VBG pCO2 VBG HCO3 VBG Base Excess Sodium 139.5 Potassium 3.3 L Chloride 101 Carbon Dioxide 28 Anion Gap 11 BUN 14 Creatinine 0.54 Est GFR ( Amer) > 60 Est GFR (Non-Af Amer) > 60 Glucose 123 H Lactic Acid Calcium 8.8 Total Bilirubin 0.8 AST 23 ALT 10 L Alkaline Phosphatase 88 Total Protein 7.1 Albumin 3.4 L Urine Color Urine Appearance Urine pH Ur Specific [place] Urine Protein Urine Glucose (UA) Urine Ketones Urine Blood Urine Nitrite Ur Leukocyte Esterase Urine WBC (Auto) Urine RBC (Auto) Blood Type O POSITIVE Antibody Screen NEGATIVE 09/19/18 09/19/18 09/19/18 03:00 03:00 08:45 WBC RBC Hgb Hct MCV MCH MCHC RDW Plt Count Seg Neutrophils % Lymphocytes % Monocytes % Eosinophils % Basophils % Absolute Neutrophils Absolute Lymphocytes Absolute Monocytes Absolute Eosinophils Absolute Basophils VBG pH 7.41 VBG pCO2 43.0 VBG HCO3 26.7 VBG Base Excess 1.8 Sodium Potassium Chloride Carbon Dioxide Anion Gap BUN Creatinine Est GFR ( Amer) Est GFR (Non-Af Amer) Glucose Lactic Acid 1.7 Calcium Total Bilirubin AST ALT Alkaline Phosphatase Total Protein Albumin Urine Color YELLOW Urine Appearance CLEAR Urine pH 6.0 Ur Specific [place] > 1.060 Urine Protein 100 H Urine Glucose (UA) 50 H Urine Ketones 20 H Urine Blood SMALL H Urine Nitrite NEGATIVE Ur Leukocyte Esterase NEGATIVE Urine WBC (Auto) 3 Urine RBC (Auto) 34 Blood Type Antibody Screen 09/19/18 02:57 Troponin I < 0.012 Impressions: Abdomen/Pelvis CT 09/19/18 00:00 IMPRESSION: Patient is status post recent ileostomy reversal with a small amount of residual free intraperitoneal air. There are several fluid-filled mildly dilated thick-walled loops of small bowel without a discrete transition point favoring ileus/enteritis. Incomplete obstruction felt less likely. Continued follow-up recommended. Small amount of ascites. Small bibasilar pleural effusions. Stable subcentimeter hypodensity near the dome of the liver, likely tiny cyst or hemangioma. TECHNICAL DOCUMENTATION: Quality ID # [id number]: Final reports with documentation of one or more dose reduction techniques (e.g., Automated exposure control, adjustment of the mA and/or kV according to patient size, use of iterative reconstruction technique) copyright 2011 [employer]- All Rights Reserved Chest X-Ray 09/19/18 03:00 IMPRESSION: Iyxrie-b-Xkas catheter tip in the SVC. Subsegmental atelectasis left lung base. copyright 2011 [employer]- All Rights Reserved Assessment & Plan - Diagnosis (1) Leukocytosis Qualifiers: Leukocytosis type: unspecified Qualified Code(s): D72.829 - Elevated white blood cell count, unspecified Is this a current diagnosis for this admission?: Yes Plan: Right-sided abdominal tenderness with leukocytosis and nausea and vomiting and malaise 5 days after ileostomy takedown. Although this presentation is concerning for an anastomotic leak, patient denies any abdominal pain at this time and states that he feels better with less tenderness. Suspect a possible micro-leak. With the patient improving with conservative measures, we will continue close observation. If his exam or symptoms worsen in any way we will plan immediate exploratory laparotomy. Await stool study for C. difficile.
[2018-09-19] MEDS: ONDANSETRON HCL INJ/PF 4 MG/2 ML SDV IV PRN ×2 (11:18→18:53)
--- NOTE | 2018-09-19 13:31 | PDOC PROGRESS REPORT ---
Subjective Progress Note for:: 09/19/18 Subjective:: Continues to improve. Thirsty. Reason For Visit: NAUSEA,VOMITING, DIARRHEA Physical Exam Vital Signs: Temp Pulse Resp BP Pulse Ox 97.8 F 63 15 121/73 100 09/19/18 08:00 09/19/18 08:00 09/19/18 08:00 09/19/18 08:00 09/19/18 08:00 Intake & Output 09/18/18 09/19/18 09/20/18 06:59 06:59 06:59 Intake Total 100 Balance 100 Weight 76.9 kg General appearance: PRESENT: no acute distress, cooperative GI/Abdominal exam: PRESENT: other - Soft, mildly distended, mild right-sided abdominal tenderness about the same as earlier today with no peritoneal signs. Results Laboratory Results: 09/19/18 02:57 09/19/18 02:57 09/19/18 09/19/18 09/19/18 02:57 02:57 02:57 WBC 16.1 H RBC 4.05 L Hgb 10.9 L Hct 32.8 L MCV 81 MCH 26.8 L MCHC 33.2 RDW 21.1 H Plt Count 527 H Seg Neutrophils % Not Reportable Lymphocytes % Not Reportable Monocytes % Not Reportable Eosinophils % Not Reportable Basophils % Not Reportable Absolute Neutrophils Not Reportable Absolute Lymphocytes Not Reportable Absolute Monocytes Not Reportable Absolute Eosinophils Not Reportable Absolute Basophils Not Reportable VBG pH VBG pCO2 VBG HCO3 VBG Base Excess Sodium 139.5 Potassium 3.3 L Chloride 101 Carbon Dioxide 28 Anion Gap 11 BUN 14 Creatinine 0.54 Est GFR ( Amer) > 60 Est GFR (Non-Af Amer) > 60 Glucose 123 H Lactic Acid Calcium 8.8 Total Bilirubin 0.8 AST 23 ALT 10 L Alkaline Phosphatase 88 Total Protein 7.1 Albumin 3.4 L Urine Color Urine Appearance Urine pH Ur Specific [place] Urine Protein Urine Glucose (UA) Urine Ketones Urine Blood Urine Nitrite Ur Leukocyte Esterase Urine WBC (Auto) Urine RBC (Auto) Blood Type O POSITIVE Antibody Screen NEGATIVE 09/19/18 09/19/18 09/19/18 03:00 03:00 08:45 WBC RBC Hgb Hct MCV MCH MCHC RDW Plt Count Seg Neutrophils % Lymphocytes % Monocytes % Eosinophils % Basophils % Absolute Neutrophils Absolute Lymphocytes Absolute Monocytes Absolute Eosinophils Absolute Basophils VBG pH 7.41 VBG pCO2 43.0 VBG HCO3 26.7 VBG Base Excess 1.8 Sodium Potassium Chloride Carbon Dioxide Anion Gap BUN Creatinine Est GFR ( Amer) Est GFR (Non-Af Amer) Glucose Lactic Acid 1.7 Calcium Total Bilirubin AST ALT Alkaline Phosphatase Total Protein Albumin Urine Color YELLOW Urine Appearance CLEAR Urine pH 6.0 Ur Specific [place] > 1.060 Urine Protein 100 H Urine Glucose (UA) 50 H Urine Ketones 20 H Urine Blood SMALL H Urine Nitrite NEGATIVE Ur Leukocyte Esterase NEGATIVE Urine WBC (Auto) 3 Urine RBC (Auto) 34 Blood Type Antibody Screen 09/19/18 02:57 Troponin I < 0.012 Impressions: Abdomen/Pelvis CT 09/19/18 00:00 IMPRESSION: Patient is status post recent ileostomy reversal with a small amount of residual free intraperitoneal air. There are several fluid-filled mildly dilated thick-walled loops of small bowel without a discrete transition point favoring ileus/enteritis. Incomplete obstruction felt less likely. Continued follow-up recommended. Small amount of ascites. Small bibasilar pleural effusions. Stable subcentimeter hypodensity near the dome of the liver, likely tiny cyst or hemangioma. TECHNICAL DOCUMENTATION: Quality ID # 436: Final reports with documentation of one or more dose reduction techniques (e.g., Automated exposure control, adjustment of the mA and/or kV according to patient size, use of iterative reconstruction technique) copyright 2011 [employer]- All Rights Reserved Chest X-Ray 09/19/18 03:00 IMPRESSION: Aygoyb-v-Dsco catheter tip in the SVC. Subsegmental atelectasis left lung base. copyright 2011 [employer]- All Rights Reserved Assessment & Plan - Diagnosis (1) Leukocytosis Qualifiers: Leukocytosis type: unspecified Qualified Code(s): D72.829 - Elevated white blood cell count, unspecified Is this a current diagnosis for this admission?: Yes (2) C. difficile colitis Is this a current diagnosis for this admission?: Yes Plan: Serology positive for C. difficile. Likely the cause of his symptoms and tenderness but still cannot entirely exclude micro leak. Will change his antibiotic to Flagyl p.o. only. And continue n.p.o. and observation. We will give IV fluid bolus.
[2018-09-19] MEDS: METRONIDAZOLE 500 MG TABLET PO SCH ×3 (14:00→23:34)
[2018-09-19] MEDS ORDERED: METRONIDAZOLE 500 MG/NS RTU 500 MG/100 ML RTUPB IV SCH (14:00)
[2018-09-19] MEDS ORDERED: CIPROFLOXACIN 400 MG/D5W RTU 400 MG/200 ML RTUPB IV SCH (18:00)
--- NOTE | 2018-09-19 20:26 | EKG REPORT ---
SEVERITY:- NORMAL ECG - SINUS RHYTHM : Confirmed by: Krista Fletcher 19-Sep-2018 20:25:49
--- NOTE | 2018-09-19 22:58 | PDOC PROGRESS REPORT ---
Subjective Progress Note for:: 09/19/18 Subjective:: Having multiple bowel movements today. Has had some nausea. Denies any abdominal pain. Reason For Visit: NAUSEA,VOMITING, DIARRHEA Physical Exam Vital Signs: Temp Pulse Resp BP Pulse Ox 98.3 F 81 20 129/89 H 98 09/19/18 15:00 09/19/18 15:00 09/19/18 15:00 09/19/18 15:00 09/19/18 15:00 Intake & Output 09/18/18 09/19/18 09/20/18 06:59 06:59 06:59 Intake Total 1300 Output Total 700 Balance 600 Weight 76.9 kg General appearance: PRESENT: no acute distress, cooperative GI/Abdominal exam: PRESENT: other - Soft, mildly distended, right-sided abdominal pain appears less than earlier today. No peritoneal signs. Results Laboratory Results: 09/19/18 02:57 09/19/18 02:57 09/19/18 09/19/18 09/19/18 02:57 02:57 02:57 WBC 16.1 H RBC 4.05 L Hgb 10.9 L Hct 32.8 L MCV 81 MCH 26.8 L MCHC 33.2 RDW 21.1 H Plt Count 527 H Seg Neutrophils % Not Reportable Lymphocytes % Not Reportable Monocytes % Not Reportable Eosinophils % Not Reportable Basophils % Not Reportable Absolute Neutrophils Not Reportable Absolute Lymphocytes Not Reportable Absolute Monocytes Not Reportable Absolute Eosinophils Not Reportable Absolute Basophils Not Reportable VBG pH VBG pCO2 VBG HCO3 VBG Base Excess Sodium 139.5 Potassium 3.3 L Chloride 101 Carbon Dioxide 28 Anion Gap 11 BUN 14 Creatinine 0.54 Est GFR ( Amer) > 60 Est GFR (Non-Af Amer) > 60 Glucose 123 H Lactic Acid Calcium 8.8 Total Bilirubin 0.8 AST 23 ALT 10 L Alkaline Phosphatase 88 Total Protein 7.1 Albumin 3.4 L Urine Color Urine Appearance Urine pH Ur Specific [place] Urine Protein Urine Glucose (UA) Urine Ketones Urine Blood Urine Nitrite Ur Leukocyte Esterase Urine WBC (Auto) Urine RBC (Auto) Blood Type O POSITIVE Antibody Screen NEGATIVE 09/19/18 09/19/18 09/19/18 03:00 03:00 08:45 WBC RBC Hgb Hct MCV MCH MCHC RDW Plt Count Seg Neutrophils % Lymphocytes % Monocytes % Eosinophils % Basophils % Absolute Neutrophils Absolute Lymphocytes Absolute Monocytes Absolute Eosinophils Absolute Basophils VBG pH 7.41 VBG pCO2 43.0 VBG HCO3 26.7 VBG Base Excess 1.8 Sodium Potassium Chloride Carbon Dioxide Anion Gap BUN Creatinine Est GFR ( Amer) Est GFR (Non-Af Amer) Glucose Lactic Acid 1.7 Calcium Total Bilirubin AST ALT Alkaline Phosphatase Total Protein Albumin Urine Color YELLOW Urine Appearance CLEAR Urine pH 6.0 Ur Specific [place] > 1.060 Urine Protein 100 H Urine Glucose (UA) 50 H Urine Ketones 20 H Urine Blood SMALL H Urine Nitrite NEGATIVE Ur Leukocyte Esterase NEGATIVE Urine WBC (Auto) 3 Urine RBC (Auto) 34 Blood Type Antibody Screen 09/19/18 02:57 Troponin I < 0.012 Impressions: Abdomen/Pelvis CT 09/19/18 00:00 IMPRESSION: Patient is status post recent ileostomy reversal with a small amount of residual free intraperitoneal air. There are several fluid-filled mildly dilated thick-walled loops of small bowel without a discrete transition point favoring ileus/enteritis. Incomplete obstruction felt less likely. Continued follow-up recommended. Small amount of ascites. Small bibasilar pleural effusions. Stable subcentimeter hypodensity near the dome of the liver, likely tiny cyst or hemangioma. TECHNICAL DOCUMENTATION: Quality ID # 436: Final reports with documentation of one or more dose reduction techniques (e.g., Automated exposure control, adjustment of the mA and/or kV according to patient size, use of iterative reconstruction technique) copyright 2011 [employer]- All Rights Reserved Chest X-Ray 09/19/18 03:00 IMPRESSION: Luklhc-d-Jrtz catheter tip in the SVC. Subsegmental atelectasis left lung base. copyright 2011 [employer]- All Rights Reserved Assessment & Plan - Diagnosis (1) Leukocytosis Qualifiers: Leukocytosis type: unspecified Qualified Code(s): D72.829 - Elevated white blood cell count, unspecified Is this a current diagnosis for this admission?: Yes (2) C. difficile colitis Is this a current diagnosis for this admission?: Yes Plan: N.p.o., IV fluids, p.o. Flagyl. will add po vancomycin to regimen.
[2018-09-19] MEDS: VANCOMYCIN HCL INJ 500 MG VIAL PO SCH (23:39)
[2018-09-19] MEDS ORDERED: VANCOMYCIN HCL INJ 500 MG VIAL ONE (23:42)
[2018-09-20] MEDS: ONDANSETRON HCL INJ/PF 4 MG/2 ML SDV IV PRN ×3 (04:48→22:56)
[2018-09-20 06:27] LABS: HEMATOCRIT 30.5 % (37.9-51.0); HEMOGLOBIN 10.4 g/dL (13.5-17.0); MEAN CORPUSCULAR HEMOGLOBIN 27.3 pg (27.0-33.4); MEAN CORPUSCULAR HGB CONC 34.1 g/dL (32.0-36.0); MEAN CORPUSCULAR VOLUME 80 fl (80-97); PLATELET COUNT 549 10^3/uL (150-450); RED BLOOD COUNT 3.81 10^6/uL (4.35-5.55); RED CELL DISTRIBUTION WIDTH 21.1 % (11.5-14.0)
[2018-09-20] MEDS: METRONIDAZOLE 500 MG TABLET PO SCH ×3 (06:46→17:18)
[2018-09-20 06:48] LABS: ANION GAP 9 (5-19); BLOOD UREA NITROGEN 10 mg/dL (7-20); CALCIUM 8.6 mg/dL (8.4-10.2); CARBON DIOXIDE 24 mmol/L (22-30); CHLORIDE 104 mmol/L (98-107); GLUCOSE 117 mg/dL (75-110); POTASSIUM 3.8 mmol/L (3.6-5.0); SODIUM 137.4 mmol/L (137-145)
[2018-09-20] MEDS: VANCOMYCIN HCL INJ 500 MG VIAL PO SCH ×4 (06:52→23:07)
[2018-09-20 06:59] LABS: ABSOLUTE MONOCYTES # (MANUAL) 0.9 10^3/uL (0.1-1.4); BASOPHILS % (MANUAL) 0 % (0-2); EOSINOPHILS % (MANUAL) 0 % (0-6); LYMPHOCYTES % (MANUAL) 14 % (13-45); MONOCYTES % (MANUAL) 13 % (3-13); SEGMENTED NEUTROPHILS % (MAN) 73 % (42-78); TOTAL CELLS COUNTED 100
[2018-09-20 07:01] LABS: ANISOCYTOSIS 3+; HYPOCHROMASIA 2+; PLATELET COMMENT INCREASED
[2018-09-20] MEDS: DEXTROSE 5%-LACTATED RINGERS 1,000 ML IV PRN ×2 (08:48→18:10)
[2018-09-20] MEDS: CHLORPROMAZINE HCL 25 MG TABLET PO PRN ×2 (11:58→18:09)
--- NOTE | 2018-09-20 17:57 | PDOC PROGRESS REPORT ---
Subjective Progress Note for:: 09/20/18 Subjective:: Still with diarrhea Reason For Visit: NAUSEA,VOMITING, DIARRHEA Physical Exam Vital Signs: Temp Pulse Resp BP Pulse Ox 97.3 F 53 L 18 141/85 H 100 09/20/18 11:41 09/20/18 11:41 09/20/18 11:41 09/20/18 11:41 09/20/18 11:41 Intake & Output 09/19/18 09/20/18 09/21/18 06:59 06:59 06:59 Intake Total 1300 Output Total 704 Balance 596 Weight 76.9 kg 80.7 kg Exam: Abdomen is slightly distended. Soft Stool positive for C-Dif Results Laboratory Results: 09/20/18 05:27 09/20/18 05:27 09/20/18 09/20/18 05:27 05:27 WBC 7.0 RBC 3.81 L Hgb 10.4 L Hct 30.5 L MCV 80 MCH 27.3 MCHC 34.1 RDW 21.1 H Plt Count 549 H Seg Neutrophils % Not Reportable Lymphocytes % Not Reportable Monocytes % Not Reportable Eosinophils % Not Reportable Basophils % Not Reportable Absolute Neutrophils Not Reportable Absolute Lymphocytes Not Reportable Absolute Monocytes Not Reportable Absolute Eosinophils Not Reportable Absolute Basophils Not Reportable Sodium 137.4 Potassium 3.8 Chloride 104 Carbon Dioxide 24 Anion Gap 9 BUN 10 Creatinine 0.48 L Est GFR ( Amer) > 60 Est GFR (Non-Af Amer) > 60 Glucose 117 H Calcium 8.6 09/19/18 02:57 Troponin I < 0.012 Impressions: Abdomen/Pelvis CT 09/19/18 00:00 IMPRESSION: Patient is status post recent ileostomy reversal with a small amount of residual free intraperitoneal air. There are several fluid-filled mildly dilated thick-walled loops of small bowel without a discrete transition point favoring ileus/enteritis. Incomplete obstruction felt less likely. Continued follow-up recommended. Small amount of ascites. Small bibasilar pleural effusions. Stable subcentimeter hypodensity near the dome of the liver, likely tiny cyst or hemangioma. TECHNICAL DOCUMENTATION: Quality ID # 436: Final reports with documentation of one or more dose reduction techniques (e.g., Automated exposure control, adjustment of the mA and/or kV according to patient size, use of iterative reconstruction technique) copyright 2011 [employer]- All Rights Reserved Chest X-Ray 09/19/18 03:00 IMPRESSION: Xjlrqg-a-Tymg catheter tip in the SVC. Subsegmental atelectasis left lung base. copyright 2010 [employer] All Rights Reserved Assessment & Plan - Time Time Spent with patient: 15-24 minutes - Inpatient Certification Medical Necessity: Need For IV Fluids, Need for IV Antibiotics, Risk of Complication if Not Cared For in Hospital - Plan Summary Plan Summary: Continue po Flagyl and Vanco for C Dif Keep NPO
[2018-09-20] MEDS: PROMETHAZINE HCL INJ 25 MG/1 ML VIAL IV PRN (18:27)
[2018-09-20] MEDS: METRONIDAZOLE 500 MG/NS RTU 500 MG/100 ML RTUPB IV SCH (23:06)
[2018-09-21] MEDS: PROMETHAZINE HCL INJ 25 MG/1 ML VIAL IV PRN ×2 (04:04→23:39)
[2018-09-21] MEDS: VANCOMYCIN HCL INJ 500 MG VIAL PO SCH ×4 (06:11→23:39)
[2018-09-21] MEDS: METRONIDAZOLE 500 MG/NS RTU 500 MG/100 ML RTUPB IV SCH ×4 (06:11→23:39)
[2018-09-21] MEDS: DEXTROSE 5%-LACTATED RINGERS 1,000 ML IV PRN (06:12)
[2018-09-21 08:11] LABS: MEAN CORPUSCULAR HEMOGLOBIN 26.4 pg (27.0-33.4); MEAN CORPUSCULAR HGB CONC 33.2 g/dL (32.0-36.0); MEAN CORPUSCULAR VOLUME 80 fl (80-97); PLATELET COUNT 650 10^3/uL (150-450); RED BLOOD COUNT 4.15 10^6/uL (4.35-5.55); RED CELL DISTRIBUTION WIDTH 21.2 % (11.5-14.0); WHITE BLOOD COUNT 7.8 10^3/uL (4.0-10.5)
[2018-09-21 08:27] LABS: ANION GAP 9 (5-19); BLOOD UREA NITROGEN 4 mg/dL (7-20); CALCIUM 8.5 mg/dL (8.4-10.2); CARBON DIOXIDE 23 mmol/L (22-30); CHLORIDE 103 mmol/L (98-107); GLUCOSE 89 mg/dL (75-110); POTASSIUM 3.5 mmol/L (3.6-5.0); SODIUM 135.2 mmol/L (137-145)
[2018-09-21 08:33] LABS: ABSOLUTE LYMPHOCYTES# (MANUAL) 1.6 10^3/uL (0.5-4.7); BASOPHILS % (MANUAL) 1 % (0-2); EOSINOPHILS % (MANUAL) 0 % (0-6); LYMPHOCYTES % (MANUAL) 20 % (13-45); MONOCYTES % (MANUAL) 13 % (3-13); NUCLEATED RED BLOOD CELLS 1 /100 WBC (0); SEGMENTED NEUTROPHILS % (MAN) 66 % (42-78); TOTAL CELLS COUNTED 100
[2018-09-21 08:34] LABS: ANISOCYTOSIS 3+; OVALOCYTES SLIGHT; PLATELET LARGE PRESENT; POIKILOCYTOSIS SLIGHT; POLYCHROMASIA 1+; SCHISTOCYTES SLIGHT
[2018-09-21 08:35] LABS: PLATELET COMMENT INCREASED
--- NOTE | 2018-09-21 09:50 | PDOC PROGRESS REPORT ---
Subjective Progress Note for:: 09/21/18 Subjective:: Feels better. No abdominal pain. Still having diarrhea but less. Reason For Visit: NAUSEA,VOMITING, DIARRHEA Physical Exam Vital Signs: Temp Pulse Resp BP Pulse Ox 98.2 F 56 L 16 151/87 H 100 09/20/18 23:04 09/20/18 23:04 09/20/18 23:04 09/20/18 23:04 09/20/18 23:04 Intake & Output 09/20/18 09/21/18 09/22/18 06:59 06:59 06:59 Intake Total 1300 100 100 Output Total 704 200 Balance 596 -100 100 Weight 80.7 kg 80.5 kg General appearance: PRESENT: no acute distress, cooperative Respiratory exam: PRESENT: clear to auscultation arabella Cardiovascular exam: PRESENT: RRR GI/Abdominal exam: PRESENT: other - Soft, nondistended, nontender to palpation. Wound is dehisced superficially laterally with scant drainage. Results Laboratory Results: 09/21/18 07:45 09/21/18 07:45 09/21/18 09/21/18 07:45 07:45 WBC 7.8 RBC 4.15 L Hgb 11.0 L Hct 33.0 L MCV 80 MCH 26.4 L MCHC 33.2 RDW 21.2 H Plt Count 650 H Seg Neutrophils % Not Reportable Lymphocytes % Not Reportable Monocytes % Not Reportable Eosinophils % Not Reportable Basophils % Not Reportable Absolute Neutrophils Not Reportable Absolute Lymphocytes Not Reportable Absolute Monocytes Not Reportable Absolute Eosinophils Not Reportable Absolute Basophils Not Reportable Sodium 135.2 L Potassium 3.5 L Chloride 103 Carbon Dioxide 23 Anion Gap 9 BUN 4 L Creatinine 0.50 L Est GFR ( Amer) > 60 Est GFR (Non-Af Amer) > 60 Glucose 89 Calcium 8.5 09/19/18 02:57 Troponin I < 0.012 Impressions: Abdomen/Pelvis CT 09/19/18 00:00 IMPRESSION: Patient is status post recent ileostomy reversal with a small amount of residual free intraperitoneal air. There are several fluid-filled mildly dilated thick-walled loops of small bowel without a discrete transition point favoring ileus/enteritis. Incomplete obstruction felt less likely. Continued follow-up recommended. Small amount of ascites. Small bibasilar pleural effusions. Stable subcentimeter hypodensity near the dome of the liver, likely tiny cyst or hemangioma. TECHNICAL DOCUMENTATION: Quality ID # [id number]: Final reports with documentation of one or more dose reduction techniques (e.g., Automated exposure control, adjustment of the mA and/or kV according to patient size, use of iterative reconstruction technique) copyright 2011 [employer] All Rights Reserved Chest X-Ray 09/19/18 03:00 IMPRESSION: Wwwztp-f-Ccda catheter tip in the SVC. Subsegmental atelectasis left lung base. copyright 2011 [employer] All Rights Reserved Assessment & Plan - Diagnosis (1) Leukocytosis Qualifiers: Leukocytosis type: unspecified Qualified Code(s): D72.829 - Elevated white blood cell count, unspecified Is this a current diagnosis for this admission?: Yes (2) C. difficile colitis Is this a current diagnosis for this admission?: Yes Plan: Improving. Will start diet. The patient does well we will plan to discharge patient home in the next couple of days on p.o. vancomycin.
[2018-09-21] MEDS ORDERED: DEXTROSE 5%-1/2 NORMAL SALINE 1,000 ML IV PRN (09:51)
[2018-09-21] MEDS: MORPHINE SULFATE 10 MG/ML INJ IV PRN ×2 (17:55→22:20)
[2018-09-22] MEDS ORDERED: ONDANSETRON 4 MG TAB.RAPDIS ONE (03:09)
[2018-09-22] MEDS ORDERED: ONDANSETRON ODT 4 MG TAB (6 TAB/ER DISP) SL ONE (03:15)
[2018-09-22] MEDS: METRONIDAZOLE 500 MG/NS RTU 500 MG/100 ML RTUPB IV SCH (05:33)
[2018-09-22] MEDS: VANCOMYCIN HCL INJ 500 MG VIAL PO SCH (05:33)
--- NOTE | 2018-09-22 09:14 | DISCHARGE SUMMARY E ---
Discharge Summary NAME: ELOISE FLETCHER : 1990 AGE: 28Y ADMITTED: 09/19/2018 DISCHARGED: 09/22/2018 FINAL DIAGNOSES: 1. C. diff infection. 2. Postop reversal of ileostomy. HOSPITAL COURSE: This is a 28-year-old male who first underwent reversal of ileostomy on 09/13/[address] Tinoco. The patient had a previous right hemicolectomy for carcinoma. Postoperatively the patient did well and was discharged improved on 09/18/2018. The patient, however, came back the next day with diarrhea and abdominal pains where a CAT scan of the abdomen showed thickened colon wall. Stool for C. diff also was positive. The patient was subsequently placed on IV Levaquin and Flagyl. He gradually improved and was able to be placed on soft diet on 09/21/2018. He is being discharged on 09/22/2018 on p.o. Cipro and Flagyl for the next 10 days. The patient has an appointment with the [facility], Dr. Tinoco, on 10/02/2018. The patient was then discharged improved on 09/22/2018. DICTATING PHYSICIAN: THEA CASTANEDA M.D. [id number] PHY#: [id number] ID: [id number] JOB#: [id number] ACCT: [id number] cc:Jessica BRAY PA >
[2018-09-22 10:09] VITALS: BP 137/55
== END 2018-09-22 10:40 | disposition home or self-care (01) | DRG 372 ==
LOC: ER 01:47 → OBSVTOIN 06:28 → EH 06:28 → 5 07:39
PROVIDERS: ATTEND Surgery
DX: A04.72 Enterocolitis due to Clostridium difficile, not specified as recurrent (principal); C18.2 Malignant neoplasm of ascending colon; D72.829 Elevated white blood cell count, unspecified; E86.0 Dehydration; Z90.49 Acquired absence of other specified parts of digestive tract; Z98.0 Intestinal bypass and anastomosis status; Z79.899 Other long term (current) drug therapy; Z87.891 Personal history of nicotine dependence
CPT/HCPCS: 36415; 71045; 74177; 80048; 80053; 81001; 82803; 82962; 83605; 84484; 85025; 85610; 85730; 86850; 86900; 86901; 87040; 87493; 93005; 93010; 96361; 96374; 96375; 96376; 99285; J0744; J2270; J2405; J2550; J3370; J3490; J7030; J7121; S0119

== ENCOUNTER 2018-09-25 06:33 | Emergency (ER) | payer BC ==
[2018-09-25 06:44] VITALS: BP 122/62
--- NOTE | 2018-09-25 07:14 | ER Document Report ---
ED Medical Screen (RME) - General Chief Complaint: Abdominal Pain Stated Complaint: ABDOMINAL PAIN Time Seen by Provider: 09/25/18 07:12 Notes: 28-year-old male with history of recent ileostomy reversal by Dr. Tinoco, also recently admitted for C. difficile colitis and discharged home, has not had a bowel movement for the past several days, complains of abdominal swelling and pain. Denies vomiting, fever. TRAVEL OUTSIDE OF THE [place] IN LAST 30 DAYS: No - Related Data Allergies/Adverse Reactions: No Known Allergies Allergy (Verified 09/19/18 01:50) Past Medical History - Past Medical History Cardiac Medical History: Denies: Hx Coronary Artery Disease, Hx Heart Attack, Hx Hypertension Pulmonary Medical History: Denies: Hx Asthma, Hx Bronchitis, Hx COPD, Hx Pneumonia Neurological Medical History: Denies: Hx Cerebrovascular Accident, Hx Seizures Renal/ Medical History: Denies: Hx Peritoneal Dialysis Malignancy Medical History: Reports Hx Colorectal Cancer Musculoskeltal Medical History: Denies Hx Arthritis Past Surgical History: Reports: Hx Abdominal Surgery - exploratory lap, Other - R extended hemicolectomy, loop ileostomy 03/2018 - Immunizations Hx Diphtheria, Pertussis, Tetanus Vaccination: Yes History of Influenza Vaccine for 12/2016 - 05/2017 Season: No Influenza Administration Date for 12/2016 - 05/2017 Season: 12/26/16 Physical Exam - Vital signs Vitals: Temp Pulse Resp BP Pulse Ox 98.6 F 105 H 16 122/62 95 09/25/18 06:40 09/25/18 06:40 09/25/18 06:40 09/25/18 06:40 09/25/18 06:40 - Abdominal Tenderness: Tender - Generalized abdominal tenderness with mild distention. Wound over the right abdomen has one staple missing and is healing this way, no signs of infection at this time Course - Re-evaluation Re-evalutation: I have greeted and performed a rapid initial assessment of this patient. A comprehensive ED assessment and evaluation of the patient, analysis of test results and completion of the medical decision making process will be conducted by additional ED providers. - Vital Signs Vital signs: Temp Pulse Resp BP Pulse Ox 98.6 F 105 H 16 122/62 95 09/25/18 06:40 09/25/18 06:40 09/25/18 06:40 09/25/18 06:40 09/25/18 06:40
--- NOTE | 2018-09-25 08:52 | RADIOLOGY REPORT (SQ) ---
EXAM DESCRIPTION: ACUTE ABDOMEN SERIES COMPLETED DATE/TIME: 09/25/2018 7:55 am REASON FOR STUDY: abd pain/swelling COMPARISON: None. NUMBER OF VIEWS: Three views. TECHNIQUE: Frontal chest, supine abdomen and upright/decubitus abdomen radiographic images acquired. LIMITATIONS: None. FINDINGS: CHEST: Atelectasis left lower lobe. FREE AIR: None. No abnormal gas collections. BOWEL GAS PATTERN: Dilated loops of large and small bowel with gas fluid levels primarily in the left upper quadrant. Cecum not dilated. CALCIFICATIONS: No suspicious calcifications. HARDWARE: None in the abdomen. SOFT TISSUES: No gross mass or suggestion of organomegaly. BONES: No acute fracture. No worrisome bone lesions. OTHER: Right lower quadrant skin shahab. IMPRESSION: Postop ileus versus partial bowel obstruction. TECHNICAL DOCUMENTATION: JOB ID: [id number] [employer]- All Rights Reserved Reading location - IP/workstation name: [email or web address]
[2018-09-25 08:54] LABS: APPEARANCE,URINE CLOUDY; BILIRUBIN,URINE NEGATIVE (NEGATIVE); COLOR,URINE YELLOW; GLUCOSE, URINE NEGATIVE (NEGATIVE); HEMATOCRIT 32.6 % (37.9-51.0); HEMOGLOBIN 10.9 g/dL (13.5-17.0); KETONES,URINE NEGATIVE (NEGATIVE); LEUKOCYTE ESTERASE,URINE NEGATIVE (NEGATIVE); MEAN CORPUSCULAR HEMOGLOBIN 26.5 pg (27.0-33.4); MEAN CORPUSCULAR HGB CONC 33.5 g/dL (32.0-36.0); MEAN CORPUSCULAR VOLUME 79 fl (80-97); NITRITE,URINE NEGATIVE (NEGATIVE); PLATELET COUNT 954 10^3/uL (150-450); PROTEIN,URINE NEGATIVE (NEGATIVE); RED BLOOD COUNT 4.12 10^6/uL (4.35-5.55); RED CELL DISTRIBUTION WIDTH 21.5 % (11.5-14.0); URINE SPECIFIC GRAVITY 1.018; UROBILINOGEN,URINE NEGATIVE mg/dL (<2.0); WHITE BLOOD COUNT 15.4 10^3/uL (4.0-10.5)
[2018-09-25 09:08] LABS: ALANINE AMINOTRANSFERASE 16 U/L (21-72); ALBUMIN 3.2 g/dL (3.5-5.0); ALKALINE PHOSPHATASE 66 U/L (38-126); ANION GAP 10 (5-19); ASPARTATE AMINO TRANSFERASE 12 U/L (17-59); BILIRUBIN,DIRECT 0.2 mg/dL (0.0-0.4); BILIRUBIN,TOTAL 0.3 mg/dL (0.2-1.3); BLOOD UREA NITROGEN 9 mg/dL (7-20); CALCIUM 9.1 mg/dL (8.4-10.2); CARBON DIOXIDE 30 mmol/L (22-30); CHLORIDE 99 mmol/L (98-107); GLUCOSE 93 mg/dL (75-110); LIPASE 17.7 U/L (23-300); POTASSIUM 3.9 mmol/L (3.6-5.0); TOTAL PROTEIN 6.2 g/dL (6.3-8.2)
[2018-09-25 09:12] LABS: ABSOLUTE LYMPHOCYTES# (MANUAL) 1.5 10^3/uL (0.5-4.7); ABSOLUTE MONOCYTES # (MANUAL) 0.5 10^3/uL (0.1-1.4); BASOPHILS % (MANUAL) 0 % (0-2); EOSINOPHILS % (MANUAL) 0 % (0-6); LYMPHOCYTES % (MANUAL) 10 % (13-45); MONOCYTES % (MANUAL) 3 % (3-13); SEGMENTED NEUTROPHILS % (MAN) 87 % (42-78); TOTAL CELLS COUNTED 100
[2018-09-25 09:13] LABS: ANISOCYTOSIS 3+; HYPOCHROMASIA 1+; OVALOCYTES SLIGHT; POIKILOCYTOSIS SLIGHT; TARGET CELLS SLIGHT
[2018-09-25 09:14] LABS: PLATELET COMMENT INCREASED
[2018-09-25] MEDS ORDERED: HYDROMORPHONE HCL INJ/PF 2 MG/ML AMPULE IV ONE ×2 (09:26→12:15)
--- NOTE | 2018-09-25 09:29 | ER Document Report ---
ED GI/ - General Chief Complaint: Abdominal Pain Stated Complaint: ABDOMINAL PAIN Time Seen by Provider: 09/25/18 07:12 Information source: Patient Notes: Patient is a 28-year-old male presenting to the emergency department with abdominal pain 2 weeks post ileostomy reversal. He reports that he has colon cancer and had the ileostomy reversed and has had pain and drainage from the incisional site. He also reports that he has had no bowel movement in several days. He denies any vomiting but reports nausea and states he has been unable to tolerate p.o. intake. He reports that his abdomen has become more distended over the last 2 days. TRAVEL OUTSIDE OF THE [place] IN LAST 30 DAYS: No - Related Data Allergies/Adverse Reactions: No Known Allergies Allergy (Verified 09/19/18 01:50) Past Medical History - General Information source: Patient - Social History Smoking Status: Never Smoker Frequency of alcohol use: None Drug Abuse: None Family History: None, Reviewed & Not Pertinent Patient has suicidal ideation: No Patient has homicidal ideation: No - Past Medical History Cardiac Medical History: Denies: Hx Coronary Artery Disease, Hx Heart Attack, Hx Hypertension Pulmonary Medical History: Denies: Hx Asthma, Hx Bronchitis, Hx COPD, Hx Pneumonia Neurological Medical History: Denies: Hx Cerebrovascular Accident, Hx Seizures Renal/ Medical History: Denies: Hx Peritoneal Dialysis Malignancy Medical History: Reports Hx Colorectal Cancer Musculoskeletal Medical History: Denies Hx Arthritis Past Surgical History: Reports: Hx Abdominal Surgery - exploratory lap, Other - R extended hemicolectomy, loop ileostomy 03/2018 - Immunizations Hx Diphtheria, Pertussis, Tetanus Vaccination: Yes Review of Systems - Review of Systems Constitutional: Malaise. denies: Fever EENT: No symptoms reported Cardiovascular: No symptoms reported Respiratory: No symptoms reported Gastrointestinal: Abdomen distended, Abdominal pain, Nausea. denies: Vomiting Genitourinary: No symptoms reported Male Genitourinary: No symptoms reported Musculoskeletal: No symptoms reported Skin: No symptoms reported Hematologic/Lymphatic: No symptoms reported Neurological/Psychological: No symptoms reported Physical Exam - Vital signs Vitals: Temp Pulse Resp BP Pulse Ox 98.6 F 105 H 16 122/62 95 09/25/18 06:40 09/25/18 06:40 09/25/18 06:40 09/25/18 06:40 09/25/18 06:40 - Notes Notes: PHYSICAL EXAMINATION: GENERAL: Well-appearing, well-nourished and in no acute distress. HEAD: Atraumatic, normocephalic. EYES: Pupils equal round and reactive to light, extraocular movements intact, sclera anicteric, conjunctiva are normal. ENT: Nares patent, oropharynx clear without exudates. Moist mucous membranes. NECK: Normal range of motion, supple without lymphadenopathy LUNGS: Breath sounds clear to auscultation bilaterally and equal. No wheezes rales or rhonchi. HEART: Regular rate and rhythm without murmurs ABDOMEN: Abdomen distended, generalized tenderness to palpation, approximate 8 cm incisional site 1 cm of dehiscence to the right middle abdomen. No surrounding erythema noted. No guarding, no rebound. No masses appreciated. Musculoskeletal: Normal range of motion, no pitting or edema. No cyanosis. NEUROLOGICAL: Cranial nerves grossly intact. Normal speech. Normal sensory, motor exams PSYCH: Normal mood, normal affect. SKIN: Warm, Dry, normal turgor, no rashes or lesions noted. Course - Re-evaluation Re-evalutation: 09/25/18 09:28 Call placed via solutions operator to Dr. Tinoco, solutions operator left message on his cell phone for him to call pain medications ordered. Patient assessed, abdomen is very firm and distended. Patient has white blood count of 15,000, abdominal x-rays show postop ileus versus small bowel obstruction. Patient reports last bowel mo vement was . He did have a ileostomy reversal done approximately 2 weeks ago. Patient denies any nausea, vomiting or fevers. He reports pain started on Tuesday and states it is constant and severe. Patient accepted for admission by Dr. Lozano, general surgery on-call. Plan to start antibiotics and place NG tube. Patient updated on plan of care and is agreeable to same. Patient was medicated for pain with IV Dilaudid which he states it did provide some pain relief. 09/25/18 13:17 Patient refusing initiated. Went to the bedside and spoke with the patient and the patient has decided to leave AGAINST MEDICAL ADVICE as he states he wants to go to [facility] and does not want to wait for transfer acceptance and transport. I discussed with patient that I would be happy to try to arrange transfer to [facility] however since we are capable of taking care of this patient here in our hospital he may be responsible for transportation expenses. Patient wants to leave POV. We discussed the risks of this. He is of sound mind and is able to make his own decisions. His family member is at the bedside and is in agreement with his decision. 09/25/18 13:39 Dr. Lozano made aware of patient's departure. - Vital Signs Vital signs: Temp Pulse Resp BP Pulse Ox 98.6 F 105 H 16 122/62 95 09/25/18 06:40 09/25/18 06:40 09/25/18 06:40 09/25/18 06:40 09/25/18 06:40 - Laboratory Result Diagrams: 09/25/18 08:32 09/25/18 08:32 Laboratory results interpreted by me: 09/25/18 09/25/18 09/25/18 08:32 08:32 08:32 WBC 15.4 H RBC 4.12 L Hgb 10.9 L Hct 32.6 L MCV 79 L MCH 26.5 L RDW 21.5 H Plt Count 954 H Seg Neuts % (Manual) 87 H Lymphocytes % (Manual) 10 L Abs Neuts (Manual) 13.4 H AST 12 L ALT 16 L Total Protein 6.2 L Albumin 3.2 L Lipase 17.7 L Urine Blood SMALL H Discharge - Discharge Clinical Impression: Abdominal pain Qualifiers: Abdominal location: generalized Qualified Code(s): R10.84 - Generalized abdominal pain Leukocytosis Qualifiers: Leukocytosis type: unspecified Qualified Code(s): D72.829 - Elevated white blood cell count, unspecified Condition: Fair Disposition: AGAINST MEDICAL ADVICE Additional Instructions: You are leaving the hospital AGAINST MEDICAL ADVICE today. Please return to the emergency department for any new or worsening symptoms. You may have a small bowel obstruction it is very important for you to have medical treatment. We wi ll reevaluate you here at [place] at any time. Discharge Plan: You are leaving the emergency department AGAINST MEDICAL ADVICE today. Please return to the emergency department with any new or worsening symptoms, we are happy to reevaluate you at any time.
[2018-09-25] MEDS ORDERED: METRONIDAZOLE 500 MG/NS RTU 500 MG/100 ML RTUPB IV ONE (09:39)
[2018-09-25] MEDS ORDERED: NORMAL SALINE 1000 ML 1,000 ML IV ONE (09:39)
[2018-09-25] MEDS ORDERED: CIPROFLOXACIN 400 MG/D5W RTU 400 MG/200 ML RTUPB IV ONE (09:39)
== END 2018-09-25 13:45 | disposition left against medical advice (07) ==
LOC: ER 06:33 → UNDOADMIN 09:56 → EH 09:56 → ER 13:45
DX: R10.84 Generalized abdominal pain (principal); D72.829 Elevated white blood cell count, unspecified; R11.0 Nausea; R14.0 Abdominal distension (gaseous)
CPT/HCPCS: 96376; 99284; 96361; 96375; 96365; 96366; 96368; 36415; 87040; 83690; 85025; 80053; 81001; 74022; J3490; J1170; J7030; J0744

== ENCOUNTER 2019-03-23 00:26 | Emergency (ER) | payer BC ==
[2019-03-23] MEDS ORDERED: ONDANSETRON 4 MG TAB.RAPDIS PO ONE ×2 (02:09→08:08)
[2019-03-23 02:37] LABS: A TYPE INFLUENZA AG NEGATIVE (NEGATIVE); B INFLUENZA AG NEGATIVE (NEGATIVE)
[2019-03-23] MEDS ORDERED: METOCLOPRAMIDE HCL INJ/PF 10 MG/2 ML SDV IV ONE (08:35)
[2019-03-23] MEDS ORDERED: NORMAL SALINE 1000 ML 1,000 ML IV ONE (08:35)
--- NOTE | 2019-03-23 09:01 | ER Document Report ---
ED Flu Like - General Chief Complaint: Flu Symptoms Stated Complaint: NAUSEAS, FEELING WEAK Time Seen by Provider: 03/23/19 08:10 Notes: 29-year-old male presents with flulike symptoms for 1 week. Patient has nonproductive cough, chills, no appetite, nausea/vomiting. Patient states nausea/vomiting started last night. Patient also states generalized body aches. Patient denies fever, chest pain, shortness of breath, coughing up blood. TRAVEL OUTSIDE OF THE [place] IN LAST 30 DAYS: No - Related Data Allergies/Adverse Reactions: No Known Allergies Allergy (Verified 09/19/18 01:50) Past Medical History - Social History Smoking Status: Never Smoker Family History: None, Reviewed & Not Pertinent Patient has suicidal ideation: No Patient has homicidal ideation: No - Past Medical History Cardiac Medical History: Denies: Hx Coronary Artery Disease, Hx Heart Attack, Hx Hypertension Pulmonary Medical History: Denies: Hx Asthma, Hx Bronchitis, Hx COPD, Hx Pneumonia Neurological Medical History: Denies: Hx Cerebrovascular Accident, Hx Seizures Renal/ Medical History: Denies: Hx Peritoneal Dialysis Malignancy Medical History: Reports Hx Colorectal Cancer Musculoskeletal Medical History: Denies Hx Arthritis Past Surgical History: Reports: Hx Abdominal Surgery - exploratory lap, Other - R extended hemicolectomy, loop ileostomy 03/2018 - Immunizations Hx Diphtheria, Pertussis, Tetanus Vaccination: Yes Review of Systems - Review of Systems Notes: Constitutional: Positive for chills. Negative for fever. HENT: Negative for sore throat. Eyes: Negative for visual changes. Cardiovascular: Negative for chest pain. Respiratory: Positive for nonproductive cough. Negative for shortness of breath. Gastrointestinal: Positive for nausea/vomiting. Negative for abdominal pain or diarrhea. Genitourinary: Negative for dysuria. Musculoskeletal: Positive for generalized body aches. Negative for back pain. Skin: Negative for rash. Neurological: Negative for headaches, weakness or numbness. 10 point ROS negative except as marked above and in HPI. Physical Exam - Vital signs Vitals: Temp Pulse Resp BP Pulse Ox 98.9 F 62 19 149/87 H 100 03/23/19 00:44 03/23/19 00:44 03/23/19 00:44 03/23/19 00:44 03/23/19 00:44 - Notes Notes: GENERAL: Well-appearing, well-nourished and in no acute distress. HEAD: Atraumatic, normocephalic. EYES: Extraocular movements intact, sclera anicteric, conjunctiva are normal. NECK: Normal range of motion, supple without lymphadenopathy or JVD. LUNGS: Breath sounds clear to auscultation bilaterally and equal. No wheezes rales or rhonchi. HEART: Regular rate and rhythm without murmurs, rubs or gallops. ABDOMEN: Soft, nontender. No guarding, no rebound. No masses appreciated. EXTREMITIES: Normal range of motion, no pitting or edema. No clubbing or cyanosis. NEUROLOGICAL: Cranial nerves II through XII grossly intact. Normal speech, normal gait. PSYCH: Normal mood, normal affect. SKIN: Warm, Dry, normal turgor, no rashes or lesions noted. Course - Re-evaluation Re-evalutation: 03/23/19 nontoxic, well-appearing. Patient complains of flulike symptoms. Patient is afebrile. Abdomen soft nontender. Lungs clear to auscultation bilaterally. Regular rate and rhythm. Flu test is negative. Discussed this with patient. Patient is complaining of continued nausea after 2 doses of Zofr an. Reglan ordered with IV fluids. Will p.o. challenge. 03/23/19 10:08 PO tolerant. Pt feels better with Reglan. Pt given prescription for Reglan. Return precautions given. Pt given referral to PCP. All questions/concerns addressed prior to discharge. - Vital Signs Vital signs: Temp Pulse Resp BP Pulse Ox 98.3 F 79 21 H 146/80 H 100 03/23/19 04:39 03/23/19 04:39 03/23/19 04:39 03/23/19 04:39 03/23/19 04:39 Discharge - Discharge Clinical Impression: Influenza-like illness Nausea & vomiting Qualifiers: Vomiting type: unspecified Vomiting Intractability: unspecified Qualified Code(s): R11.2 - Nausea with vomiting, unspecified Condition: Stable Disposition: HOME, SELF-CARE Instructions: Antinausea Medication ([facility]), Reglan ([facility]) Additional Instructions: Please take Reglan as prescribed. Please drink plenty of fluids. Please rest. Please follow-up with PCP or 1 of the clinics listed in 3 to 5 days. Return to ER for any worsening symptoms, including fever, vomiting not controlled by medication, abdominal pain, chest pain, shortness of breath, coughing up blood, or any other symptoms that are concerning to you. Prescriptions: Metoclopramide HCl [Reglan 10 mg Tablet] 1 - 2 tab PO ASDIR PRN #25 tablet PRN Reason: Forms: Return to Work Referrals: DAYANARA NELSON MD [COMMUNITY BASED STAFF] - [facility] - Follow up in 3-5 days
[2019-03-23 10:39] VITALS: BP 127/56
== END 2019-03-23 10:40 | disposition home or self-care (01) ==
LOC: ER 00:26
DX: J11.1 Influenza due to unidentified influenza virus with other respiratory manifestations (principal); R05 Cough; R68.83 Chills (without fever); R63.0 Anorexia; R11.2 Nausea with vomiting, unspecified; R52 Pain, unspecified
CPT/HCPCS: 99283; 96361; 96374; 87804; S0119; J2765; J7030

== ENCOUNTER 2019-08-13 17:25 | Emergency (ER) | payer BC ==
[2019-08-13] MEDS ORDERED: ONDANSETRON HCL INJ/PF 4 MG/2 ML SDV IV ONE (18:07)
[2019-08-13] MEDS ORDERED: NORMAL SALINE 1000 ML 1,000 ML IV ONE ×2 (18:07→19:52)
--- NOTE | 2019-08-13 18:38 | RADIOLOGY REPORT (SQ) ---
EXAM DESCRIPTION: KUB/ABDOMEN (SINGLE VIEW) IMAGES COMPLETED DATE/TIME: 08/13/2019 6:29 pm REASON FOR STUDY: constipation COMPARISON: 09/25/2018 NUMBER OF VIEWS: One view. TECHNIQUE: Supine radiographic image of the abdomen acquired. LIMITATIONS: None. FINDINGS: BOWEL GAS PATTERN: Normal bowel gas pattern. No dilated loops. CALCIFICATIONS: No suspicious calcifications. SOFT TISSUES: No gross mass or suggestion of organomegaly. HARDWARE: None in the abdomen. BONES: No acute fracture. No worrisome bone lesions. OTHER: No other significant finding. IMPRESSION: NO RADIOGRAPHIC EVIDENCE FOR ACUTE ABDOMINAL DISEASE. TECHNICAL DOCUMENTATION: JOB ID: [id number] 2010 [employer]- All Rights Reserved Reading location - IP/workstation name: [email or web address]
--- NOTE | 2019-08-13 19:39 | ER Document Report ---
ED General - General Mode of Arrival: Ambulatory Information source: Patient TRAVEL OUTSIDE OF THE [place] IN LAST 30 DAYS: No - HPI Onset: This afternoon Onset/Duration: Gradual Quality of pain: No pain Associated symptoms: Chills, Nausea, Vomiting. denies: Nonproductive cough, Productive cough, Fever Exacerbated by: Denies Relieved by: Denies Similar symptoms previously: Yes Recently seen / treated by doctor: No <MINOO ARROYO - Last Filed: 08/13/19 20:13> <OLIVA MURO - Last Filed: 08/14/19 03:00> - General Chief Complaint: Flu Symptoms Stated Complaint: CHILLS Time Seen by Provider: 08/13/19 17:44 Notes: Patient presents with generalized chills, nausea and vomiting x2 episodes today. Patient states that he thought his symptoms were likely due to constipation. Patient denies any fever or abdominal tenderness. (MINOO ARROYO) - Related Data Allergies/Adverse Reactions: No Known Allergies Allergy (Verified 09/19/18 01:50) Past Medical History - General Information source: Patient - Social History Smoking Status: Current Every Day Smoker Frequency of alcohol use: None Drug Abuse: Marijuana Occupation: None Lives with: Family Family History: None, Reviewed & Not Pertinent Patient has homicidal ideation: No - Past Medical History Cardiac Medical History: Denies: Hx Coronary Artery Disease, Hx Heart Attack, Hx Hypertension Neurological Medical History: Denies: Hx Cerebrovascular Accident, Hx Seizures Renal/ Medical History: Denies: Hx Peritoneal Dialysis Malignancy Medical History: Reports Hx Colorectal Cancer Musculoskeletal Medical History: Denies Hx Arthritis Past Surgical History: Reports: Hx Abdominal Surgery - exploratory lap, Other - R extended hemicolectomy, loop ileostomy 03/2018 - Immunizations Hx Diphtheria, Pertussis, Tetanus Vaccination: Yes <MINOO ARROYO - Last Filed: 08/13/19 20:13> Review of Systems - Review of Systems Constitutional: No symptoms reported. denies: Fever EENT: No symptoms reported Cardiovascular: No symptoms reported Respiratory: No symptoms reported. denies: Cough, Short of breath Gastrointestinal: Nausea, Vomiting, Constipation, Last bowel movement - This morning. denies: Abdominal pain, Diarrhea Genitourinary: No symptoms reported. denies: Dysuria Male Genitourinary: No symptoms reported Musculoskeletal: No symptoms reported. denies: Back pain Skin: No symptoms reported Hematologic/Lymphatic: No symptoms reported Neurological/Psychological: No symptoms reported <WONG ARROYOHUBERT - Last Filed: 08/13/19 20:13> Physical Exam - General General appearance: Alert In distress: Mild - HEENT Head: Normocephalic, Atraumatic Eyes: Normal Conjunctiva: Normal Nasal: Normal Mouth/Lips: Normal Mucous membranes: Normal Neck: Normal, Supple. No: Lymphadenopathy - Respiratory Respiratory status: No respiratory distress Chest status: Nontender Breath sounds: Normal. No: Rales, Rhonchi, Stridor, Wheezing Chest palpation: Normal - Cardiovascular Rhythm: Regular Heart sounds: S1 appreciated, S2 appreciated - Abdominal Inspection: Other - Midline scar from previous surgery Distension: No distension Bowel sounds: Normal Tenderness: Nontender Organomegaly: No organomegaly - Back Back: Normal, Nontender. No: CVA tenderness - Extremities General upper extremity: Normal inspection, Normal strength General lower extremity: Normal inspection, Normal strength - Neurological Neuro grossly intact: Yes Cognition: Normal [place] Coma Scale Eye Opening: Spontaneous [place] Coma Scale Verbal: Oriented [place] Coma Scale Motor: Obeys Commands [place] Coma Scale Total: 15 - Psychological Associated symptoms: Normal affect, Normal mood - Skin Skin Temperature: Warm Skin Moisture: Moist - Shirt moist Skin Color: Normal <MINOO ARROYO - Last Filed: 08/13/19 20:13> - Vital signs Vitals: Temp 97.7 F 08/13/19 17:32 Course - Laboratory Result Diagrams: 08/13/19 19:26 08/13/19 19:26 <MINOO RAROYO - Last Filed: 08/13/19 20:13> - Laboratory Result Diagrams: 08/13/19 19:26 08/13/19 19:26 <OLIVA MURO - Last Filed: 08/14/19 03:00> - Re-evaluation Re-evalutation: 08/13/19 20:14 Patient continues with chills, abdomen soft, nontender. No guarding on examination. Patient with dry mucous membranes. Patient complains of continued nausea. Additional medications ordered. Report and handoff given to ARDEN Alvarez (MINOO ARROYO) 08/13/19 After additional medications, IV fluids, I reevaluate the patient. Patient had tolerated p.o. without any difficulty, patient is actually well-appearing, sitting up, smiling, well-appearing. He states he feels completely better and he is asking to go home. This along with his work-up is reassuring. KUB unremarkable with no signs of obstruction, general laboratory work-up nonspecific with no acute findings, vital signs unremarkable. I most strongly suspect this is viral, patient with a soft benign abdomen, low suspicion of acute abdomen or obstruction. Patient is requesting Zofran for home. He will be provided with this, discussed expectations, follow-up, return precautions. Patient states understanding and agreement. Stable and asymptomatic at time of discharge. (OLIVA MURO) - Vital Signs Vital signs: Temp Pulse Resp BP Pulse Ox 98.7 F 109 H 22 H 114/65 98 08/13/19 22:29 08/13/19 22:29 08/13/19 17:37 08/13/19 22:29 08/13/19 22:29 - Laboratory Laboratory results interpreted by me: 08/13/19 08/13/19 19:26 19:26 RDW 17.6 H Lymph % (Auto) 6.0 L Absolute Neuts (auto) 9.0 H Seg Neutrophils % 89.8 H Urine Protein 30 H Urine Ketones TRACE H Urine Blood SMALL H Discharge <MINOO ARROYO - Last Filed: 08/13/19 20:13> <OLIVA MURO - Last Filed: 08/14/19 03:00> - Discharge Clinical Impression: Vomiting Qualifiers: Vomiting type: unspecified Vomiting Intractability: unspecified Nausea presence: with nausea Qualified Code(s): R11.2 - Nausea with vomiting, unspecified Condition: Stable Disposition: HOME, SELF-CARE Additional Instructions: Your work-up today is reassuring, no concerning findings are noted. Rest, drink plenty of fluids, start with bland diet, take nausea medication if needed. This could be viral and could simply resolve with time. Follow-up with your provider for additional management. Return if you worsen including fever, uncontrolled vomiting, severe abdominal pain, or any other concerning or worsening symptoms. Prescriptions: Ondansetron [Zofran Odt 4 mg Tablet] 1 - 2 tab PO Q4H PRN #15 tab.rapdis PRN Reason: For Nausea/Vomiting
[2019-08-13 19:41] LABS: AMORPHOUS SEDIMENT,URINE TRACE /HPF; APPEARANCE,URINE CLOUDY; BILIRUBIN,URINE NEGATIVE (NEGATIVE); COLOR,URINE YELLOW; GLUCOSE, URINE NEGATIVE (NEGATIVE); KETONES,URINE TRACE mg/dL (NEGATIVE); LEUKOCYTE ESTERASE,URINE NEGATIVE (NEGATIVE); NITRITE,URINE NEGATIVE (NEGATIVE); PROTEIN,URINE 30 mg/dL (NEGATIVE); URINE SPECIFIC GRAVITY 1.027; UROBILINOGEN,URINE NEGATIVE mg/dL (<2.0)
[2019-08-13 19:43] LABS: ABSOLUTE LYMPHOCYTES (AUTO) 0.6 10^3/uL (0.5-4.7); ABSOLUTE MONOCYTES (AUTO) 0.4 10^3/uL (0.1-1.4); BASOPHILS % (AUTO) 0.2 % (0-2); HEMATOCRIT 42.7 % (37.9-51.0); HEMOGLOBIN 14.4 g/dL (13.5-17.0); MEAN CORPUSCULAR HEMOGLOBIN 28.6 pg (27.0-33.4); MEAN CORPUSCULAR HGB CONC 33.6 g/dL (32.0-36.0); MEAN CORPUSCULAR VOLUME 85 fl (80-97); PLATELET COUNT 278 10^3/uL (150-450); RED BLOOD COUNT 5.01 10^6/uL (4.35-5.55); RED CELL DISTRIBUTION WIDTH 17.6 % (11.5-14.0); SEGMENTED NEUTROPHILS % (AUTO) 89.8 % (42-78); TOTAL CELLS COUNTED % (AUTO) 100 %
[2019-08-13 19:58] LABS: A TYPE INFLUENZA AG NEGATIVE (NEGATIVE); B INFLUENZA AG NEGATIVE (NEGATIVE)
[2019-08-13 20:01] LABS: ALBUMIN 4.7 g/dL (3.5-5.0); ALKALINE PHOSPHATASE 88 U/L (38-126); ANION GAP 9 (5-19); ASPARTATE AMINO TRANSFERASE 20 U/L (17-59); BILIRUBIN,TOTAL 0.6 mg/dL (0.2-1.3); BLOOD UREA NITROGEN 13 mg/dL (7-20); CALCIUM 9.6 mg/dL (8.4-10.2); CARBON DIOXIDE 24 mmol/L (22-30); CHLORIDE 105 mmol/L (98-107); GLUCOSE 108 mg/dL (75-110); POTASSIUM 3.9 mmol/L (3.6-5.0); TOTAL PROTEIN 7.9 g/dL (6.3-8.2)
[2019-08-13] MEDS ORDERED: DIPHENHYDRAMINE HCL 50 MG/ML VIAL IV ONE (20:11)
[2019-08-13] MEDS ORDERED: PROCHLORPERAZINE EDISYLATE INJ 10 MG/2 ML VIAL IV ONE (20:11)
[2019-08-13] MEDS ORDERED: ONDANSETRON ODT 4 MG TAB (6 TAB/ER DISP) PO PRN (22:29)
[2019-08-13 22:33] VITALS: BP 114/65
== END 2019-08-13 22:38 | disposition home or self-care (01) ==
LOC: ER 17:25
DX: R11.2 Nausea with vomiting, unspecified (principal); R68.83 Chills (without fever); K59.00 Constipation, unspecified; F17.200 Nicotine dependence, unspecified, uncomplicated
CPT/HCPCS: 99283; 96361; 96374; 96375; 36415; 83690; 85025; 80053; 81001; 87804; 74018; J1200; J0780; J2405; J7030

== ENCOUNTER 2019-12-29 20:14 | Emergency (ER) | payer BC ==
[2019-12-29 23:09] VITALS: BP 126/72
[2019-12-29] MEDS ORDERED: RINGERS SOLUTION,LACTATED 1,000 ML IV ONE (23:29)
[2019-12-29] MEDS ORDERED: ONDANSETRON HCL INJ/PF 4 MG/2 ML SDV IV ONE (23:29)
--- NOTE | 2019-12-29 23:31 | ER Document Report ---
ED Medical Screen (RME) - General Chief Complaint: Nausea/Vomiting Stated Complaint: NAUSEA Time Seen by Provider: 12/29/19 23:23 Mode of Arrival: Ambulatory Information source: Patient Notes: HPI;-year-old male presents to the emergency room complaining of nausea general fatigue that started earlier today. Denies any fevers. Denies any diarrhea, complains of subjective fever and chills. States is able to tolerate some Gatorade. Denies any recent travel. Denies any COVID-19 exposure. Denies any ill contacts. PE: Alert and oriented x3. Lungs: Clear to auscultation without rales, rhonchi, wheezes. Heart: Regular rate rhythm without murmurs, rubs, gallops. I have greeted and performed a rapid initial assessment of this patient. A comprehensive ED assessment and evaluation of the patient, analysis of test results and completion of the medical decision making process will be conducted by additional ED providers. I have specifically instructed the patient or family members with the patient to immediately return to any nursing staff should anything change in the patient's condition or with their chief complaint. TRAVEL OUTSIDE OF THE [place] IN LAST 30 DAYS: No - Related Data Allergies/Adverse Reactions: No Known Allergies Allergy (Verified 09/19/18 01:50) Past Medical History - Social History Chew tobacco use (# tins/day): No Frequency of alcohol use: None Drug Abuse: None - Past Medical History Cardiac Medical History: Denies: Hx Coronary Artery Disease, Hx Heart Attack, Hx Hypertension Pulmonary Medical History: Denies: Hx Asthma, Hx Bronchitis, Hx COPD, Hx Pneumonia Neurological Medical History: Denies: Hx Cerebrovascular Accident, Hx Seizures Renal/ Medical History: Denies: Hx Peritoneal Dialysis Malignancy Medical History: Reports Hx Colorectal Cancer Musculoskeltal Medical History: Denies Hx Arthritis Past Surgical History: Reports: Hx Abdominal Surgery - exploratory lap, Other - R extended hemicolectomy, loop ileostomy 03/2018 - Immunizations Hx Diphtheria, Pertussis, Tetanus Vaccination: Yes Physical Exam - Vital signs Vitals: Temp Pulse Resp BP Pulse Ox 97.5 F 68 18 141/86 H 100 12/29/19 20:34 12/29/19 20:34 12/29/19 20:34 12/29/19 20:34 12/29/19 20:34 Course - Vital Signs Vital signs: Temp Pulse Resp BP Pulse Ox 97.9 F 73 18 126/72 H 100 12/29/19 23:07 12/29/19 23:07 12/29/19 23:07 12/29/19 23:07 12/29/19 23:07
[2019-12-30 00:43] LABS: URINE AMPHETAMINES SCREEN NEGATIVE; URINE BARBITURATES SCREEN NEGATIVE; URINE BENZODIAZEPINES SCREEN NEGATIVE; URINE COCAINE SCREEN NEGATIVE; URINE METHADONE SCREEN NEGATIVE; URINE PHENCYCLIDINE SCREEN NEGATIVE
[2019-12-30 00:44] LABS: URINE MARIJUANA (THC) SCREEN UNCONFIRMED POSITIVE
[2019-12-30 00:57] LABS: ALBUMIN 5.2 g/dL (3.5-5.0); ALKALINE PHOSPHATASE 99 U/L (38-126); ANION GAP 15 (5-19); ASPARTATE AMINO TRANSFERASE 28 U/L (17-59); BILIRUBIN,DIRECT 0.4 mg/dL (0.0-0.4); BILIRUBIN,TOTAL 0.9 mg/dL (0.2-1.3); BLOOD UREA NITROGEN 10 mg/dL (7-20); CALCIUM 10.5 mg/dL (8.4-10.2); CARBON DIOXIDE 20 mmol/L (22-30); CHLORIDE 105 mmol/L (98-107); GLUCOSE 112 mg/dL (75-110); POTASSIUM 4.3 mmol/L (3.6-5.0); TOTAL PROTEIN 8.8 g/dL (6.3-8.2)
[2019-12-30 01:49] LABS: APPEARANCE,URINE SLIGHTLY-CLOUDY; BILIRUBIN,URINE NEGATIVE (NEGATIVE); COLOR,URINE YELLOW; GLUCOSE, URINE NEGATIVE (NEGATIVE); KETONES,URINE TRACE mg/dL (NEGATIVE); LEUKOCYTE ESTERASE,URINE NEGATIVE (NEGATIVE); NITRITE,URINE NEGATIVE (NEGATIVE); PROTEIN,URINE >=500 mg/dL (NEGATIVE); URINE SPECIFIC GRAVITY 1.033; UROBILINOGEN,URINE NEGATIVE mg/dL (<2.0)
== END 2019-12-30 01:48 | disposition left against medical advice (07) ==
LOC: ER 20:14
DX: R11.2 Nausea with vomiting, unspecified (principal); R53.83 Other fatigue
CPT/HCPCS: 36415; 80053; 80307; 81001; 99281

== ENCOUNTER 2020-01-25 10:36 | Emergency (ER) | payer BC ==
--- NOTE | 2020-01-25 11:03 | ER Document Report ---
ED Medical Screen (RME) - General Chief Complaint: Abdominal Pain Stated Complaint: ABDOMINAL PAIN/NAUSEA Time Seen by Provider: 01/25/20 10:54 TRAVEL OUTSIDE OF THE [place] IN LAST 30 DAYS: No - HPI Notes: 01/25/20 11:02 30-year-old male with a pertinent past medical history for colon cancer to the emergency department with complaints of abdominal pain with nausea that started this morning. He describes it as feeling crampy. He states that he had a bowel movement this morning but it was very small and unsatisfactory. He states that he had a bag on the right side of his abdomen last year. It has been reversed. He states he is in remission from his cancer. His oncologist is Dr. Marrero. Brief medical screening exam reveals a soft nontender abdomen. He states that the pain comes in waves. He denies any urinary complaints. I performed a brief medical screening exam on the patient determined that the patient needs further evaluation and management by main side provider. I have placed initial orders to help expedite care. - Related Data Allergies/Adverse Reactions: No Known Allergies Allergy (Verified 01/25/20 10:55) Past Medical History - Social History Chew tobacco use (# tins/day): No Drug Abuse: Marijuana - Past Medical History Cardiac Medical History: Denies: Hx Coronary Artery Disease, Hx Heart Attack, Hx Hypertension Pulmonary Medical History: Denies: Hx Asthma, Hx Bronchitis, Hx COPD, Hx Pneumonia Neurological Medical History: Denies: Hx Cerebrovascular Accident, Hx Seizures Renal/ Medical History: Denies: Hx Peritoneal Dialysis Malignancy Medical History: Reports Hx Colorectal Cancer Musculoskeltal Medical History: Denies Hx Arthritis Past Surgical History: Reports: Hx Abdominal Surgery - exploratory lap, Other - R extended hemicolectomy, loop ileostomy 03/2018 - Immunizations Hx Diphtheria, Pertussis, Tetanus Vaccination: Yes Physical Exam - Vital signs Vitals: Temp Pulse Resp BP Pulse Ox 98.2 F 98 18 139/101 H 100 01/25/20 10:40 01/25/20 10:40 01/25/20 10:40 01/25/20 10:40 01/25/20 10:40 Course - Vital Signs Vital signs: Temp Pulse Resp BP Pulse Ox 98.2 F 98 18 139/101 H 100 01/25/20 10:40 01/25/20 10:40 10/30/20 10:40 10 10:40 30 10:40
[2020-01-25 11:29] LABS: ABSOLUTE EOSINOPHILS # (AUTO) 0.1 10^3/uL (0.0-0.6); ABSOLUTE LYMPHOCYTES (AUTO) 0.9 10^3/uL (0.5-4.7); ABSOLUTE MONOCYTES (AUTO) 0.4 10^3/uL (0.1-1.4); ABSOLUTE NEUT (AUTO) 3.2 10^3/uL (1.7-8.2); BASOPHILS % (AUTO) 0.8 % (0-2); HEMATOCRIT 45.6 % (37.9-51.0); HEMOGLOBIN 16.1 g/dL (13.5-17.0); LYMPHOCYTES % (AUTO) 19.2 % (13-45); MEAN CORPUSCULAR HEMOGLOBIN 31.2 pg (27.0-33.4); MEAN CORPUSCULAR HGB CONC 35.4 g/dL (32.0-36.0); MEAN CORPUSCULAR VOLUME 88 fl (80-97); PLATELET COUNT 265 10^3/uL (150-450); RED BLOOD COUNT 5.17 10^6/uL (4.35-5.55); RED CELL DISTRIBUTION WIDTH 16.5 % (11.5-14.0); TOTAL CELLS COUNTED % (AUTO) 100 %; WHITE BLOOD COUNT 4.6 10^3/uL (4.0-10.5)
[2020-01-25] MEDS ORDERED: NORMAL SALINE 1000 ML 1,000 ML IV ONE ×2 (11:36→14:04)
[2020-01-25] MEDS ORDERED: ONDANSETRON HCL INJ/PF 4 MG/2 ML SDV IV ONE (11:36)
[2020-01-25 11:40] LABS: APPEARANCE,URINE CLEAR; BILIRUBIN,URINE NEGATIVE (NEGATIVE); COLOR,URINE YELLOW; GLUCOSE, URINE NEGATIVE (NEGATIVE); KETONES,URINE NEGATIVE (NEGATIVE); LEUKOCYTE ESTERASE,URINE NEGATIVE (NEGATIVE); NITRITE,URINE NEGATIVE (NEGATIVE); PROTEIN,URINE NEGATIVE (NEGATIVE); URINE SPECIFIC GRAVITY 1.015; UROBILINOGEN,URINE NEGATIVE mg/dL (<2.0)
[2020-01-25 11:47] LABS: ALBUMIN 4.6 g/dL (3.5-5.0); ALKALINE PHOSPHATASE 78 U/L (38-126); ANION GAP 10 (5-19); ASPARTATE AMINO TRANSFERASE 23 U/L (17-59); BILIRUBIN,DIRECT 0.1 mg/dL (0.0-0.4); BILIRUBIN,TOTAL 0.7 mg/dL (0.2-1.3); BLOOD UREA NITROGEN 10 mg/dL (7-20); CALCIUM 9.9 mg/dL (8.4-10.2); CARBON DIOXIDE 26 mmol/L (22-30); CHLORIDE 102 mmol/L (98-107); GLUCOSE 91 mg/dL (75-110); POTASSIUM 4.1 mmol/L (3.6-5.0); TOTAL PROTEIN 7.9 g/dL (6.3-8.2)
--- NOTE | 2020-01-25 12:08 | RADIOLOGY REPORT (SQ) ---
EXAM DESCRIPTION: ACUTE ABDOMEN SERIES IMAGES COMPLETED DATE/TIME: 01/25/2020 11:58 am REASON FOR STUDY: nausea/history of pancreatic cancer/abd surgery COMPARISON: Chest x-ray dated 09/19/2018, KUB dated 08/13/2019 NUMBER OF VIEWS: Three views. TECHNIQUE: Frontal chest, supine abdomen and upright/decubitus abdomen radiographic images acquired. LIMITATIONS: None. FINDINGS: CHEST: Lung holland are clear. [id number] is been removed. FREE AIR: None. No abnormal gas collections. BOWEL GAS PATTERN: Nonobstructive pattern. No dilated loops or air fluid levels. CALCIFICATIONS: No suspicious calcifications. HARDWARE: None in the abdomen. SOFT TISSUES: No gross mass or suggestion of organomegaly. BONES: No acute fracture. No worrisome bone lesions. OTHER: No other significant finding. IMPRESSION: No acute findings. TECHNICAL DOCUMENTATION: JOB ID: [id number] 2010 [employer]- All Rights Reserved Reading location - IP/workstation name: [email or web address]
--- NOTE | 2020-01-25 14:40 | ER Document Report ---
Entered by CECILY CHAVIS SCRIBE 01/25/20 1134 Acting as scribe for:MARCIA MOSQUERA MD ED GI/ - General Chief Complaint: Abdominal Pain Stated Complaint: ABDOMINAL PAIN/NAUSEA Time Seen by Provider: 01/25/20 10:54 Mode of Arrival: Ambulatory Information source: Patient Notes: This 30 year old male patient with a history of colon cancer, currently in remission with ileostomy reversal in 08/2018 presents to the ED today with complaints of nausea that started this morning. Patient reports associated abdominal pain described as a cramping sensation. He states that he is constipated, but had a very small bowel movement this morning. He also notes urinary frequency, but denies fever, chills, dysuria, sore throat, chest pain, or known COVID exposure. TRAVEL OUTSIDE OF THE [place] IN LAST 30 DAYS: No - Related Data Allergies/Adverse Reactions: No Known Allergies Allergy (Verified 01/25/20 10:55) Past Medical History - Social History Smoking Status: Never Smoker Cigarette use (# per day): No Chew tobacco use (# tins/day): No Smoking Education Provided: No Drug Abuse: Marijuana Family History: None, Reviewed & Not Pertinent Patient has homicidal ideation: No Malignancy Medical History: Reports Hx Colorectal Cancer Past Surgical History: Reports: Hx Abdominal Surgery - exploratory lap, Hx Ileostomy, Other - R extended hemicolectomy, loop ileostomy 03/2018 - Immunizations Hx Diphtheria, Pertussis, Tetanus Vaccination: Yes Review of Systems - Review of Systems Constitutional: See HPI. denies: Chills, Fever EENT: No symptoms reported Cardiovascular: No symptoms reported Respiratory: No symptoms reported Gastrointestinal: See HPI, Abdominal pain, Nausea Genitourinary: See HPI, Frequency. denies: Dysuria Male Genitourinary: No symptoms reported Musculoskeletal: No symptoms reported Skin: No symptoms reported Hematologic/Lymphatic: No symptoms reported Neurological/Psychological: No symptoms reported -: Yes All other systems reviewed and negative Physical Exam - Vital signs Vitals: Temp Pulse Resp BP Pulse Ox 98.2 F 98 18 139/101 H 100 01/25/20 10:40 01/25/20 10:40 01/25/20 10:40 01/25/20 10:40 01/25/20 10:40 Interpretation: Normal - General General appearance: Alert - HEENT Head: Normocephalic, Atraumatic Eyes: Normal Pupils: PERRL - Respiratory Respiratory status: No respiratory distress Chest status: Nontender Breath sounds: Normal Chest palpation: Normal - Cardiovascular Rhythm: Regular Heart sounds: Normal auscultation Murmur: No Friction rub: No Gallop: None auscultated - Abdominal Inspection: Normal Distension: No distension Bowel sounds: Normal Tenderness: Tender - Mild RLQ tenderness to palpation Organomegaly: No organomegaly - Back Back: Normal, Nontender - Extremities General upper extremity: Normal inspection General lower extremity: Normal inspection. No: Edema - Neurological Neuro grossly intact: Yes Orientation: AAOx4 [place] Coma Scale Eye Opening: Spontaneous [place] Coma Scale Verbal: Oriented [place] Coma Scale Motor: Obeys Commands [place] Coma Scale Total: 15 - Psychological Associated symptoms: Normal affect, Normal mood - Skin Skin Temperature: Warm Skin Moisture: Dry Skin Color: Normal Course - Re-evaluation Re-evalutation: 01/25/20 14:33 Patient reports no nausea vomiting at this time. Patient also reports that his pain is completely resolved in his right lower quadrant. Patient states he is not interested in a CT scan of his abdomen pelvis at this time. That order had been put in because there is 9 red blood cells per high-power field noted on the urinalysis. This is a new finding and patient has not had any history of kidney stones in his past. Patient states he feels well enough to go home and have follow-up with his primary care providers. - Vital Signs Vital signs: Temp Pulse Resp BP Pulse Ox 98.2 F 98 18 139/101 H 100 01/25/20 10:40 01/25/20 10:40 01/25/20 10:40 01/25/20 10:40 01/25/20 10:40 01/25/20 14:33 Vital signs shows elevated blood pressure 139/101 repeat vital signs prior to discharge. - Laboratory Result Diagrams: 01/25/20 11:08 01/25/20 11:08 Laboratory results interpreted by me: 01/25/20 01/25/20 01/25/20 11:08 11:08 11:08 RDW 16.5 H Lipase 19.0 L Urine Blood MODERATE H 01/25/20 14:34 Labs essentially unremarkable except for a moderate amount of urine blood noted with 9 red blood cells per high-powered field. - Diagnostic Test Radiology reviewed: Image reviewed, Reports reviewed Radiology results interpreted by me: 01/25/20 14:34 Acute Abdomen Series 01/25/20 11:39 IMPRESSION: No acute findings. Acute abdominal series which includes a 1 view chest and flat and upright abdomen shows no acute process no evidence for obstruction no free air underneath the diaphragm and chest is clear. Discharge - Discharge Clinical Impression: Abdominal pain, Nausea without vomiting, History of colon cancer, Microscopic hematuria Condition: Stable Disposition: HOME, SELF-CARE Additional Instructions: Hematuria Hematuria, or blood in your urine, can be caused by minor medical problems, such as a bladder infection, or by more serious medical conditions, such as kidney stones or even tumors of the bladder or kidney. If the cause of the hematuria is known (such as a bladder infection) and can be treated, it may not need further evaluation. If the cause is not known, it will usually require further evaluation by a specialist, such as a urologist. In particular, unexplained hematuria in the older patient must be evaluated to rule out a serious condition, such as a bladder or kidney tumor. If the hematuria worsens or you are passing clots and then are unable to urinate, you should be re-evaluated. A catheter may need to be placed in the bladder to permit passage of urine. If you develop high fever, severe pain, or other new or worsening symptoms, return to the Emergency Department for re-ev aluation.Nausea or Vomiting, Nonspecific Today's exam work-up is incomplete inasmuch as a CT scan with abdomen and pelvis was not done due to patient's request. If further problems occur as you noted note gross hematuria or any worsening pain please do not hesitate to return back to the emergency department for further evaluation. Hematuria can represent many different things including infection ,tumor mass, stones, obstruction. Vomiting (or nausea without vomiting) can be caused by many different problems. Of course, it can mean that something's wrong with the stomach, such as "stomach flu," ulcers, or inflammation. But it can also be a symptom of a problem that has nothing to do with the stomach or intestines. Vomiting is common with severe headaches, earaches, and tonsillitis. We see it with pneumonia or heart attacks. Drugs can cause nausea. Many abdominal problems cause vomiting; for example, gallstones, kidney stones, pancreatitis, and intestinal obstruction (blocked bowels). In most cases, curing the vomiting depends on fixing the problem that caused it. For temporary relief, we may use an anti-nausea medicine. For home use, we can prescribe suppositories, chewable pills, pills that dissolve in the mouth, or liquid anti-nausea drugs. If the vomiting seems to be caused by a problem in the stomach, acid-suppressing drugs may be prescribed as well. It's important to avoid dehydration. Sip clear liquids. Take increasing amounts of fluid over the first 24 hours. Then start small amounts of bland foods (such as dry toast, applesauce, mashed potato). Avoid aspirin, tobacco, and alcohol. Gradually resume your usual diet. If the vomiting worsens, if the problem that's making you vomit worsens, or if there's evidence of bleeding in the stomach (such as black, tarry stool, bloody or black vomit, or lightheadedness), you should return immediately. Call your doctor if you aren't improved in 24 to 36 hours. Today you present with nausea without vomiting. We are writing prescriptions for you to take medications to allow you to be able to eat and drink fluids without nausea. If worsening occurs please do not hesitate to return to the emergency department. Prescriptions: Ondansetron [Zofran Odt 4 mg Tablet] 1 - 2 tab PO Q4H PRN #15 tab.rapdis PRN Reason: For Nausea/Vomiting I personally performed the services described in the documentation, reviewed and edited the documentation which was dictated to the scribe in my presence, and it accurately records my words and actions.
[2020-01-25 14:58] VITALS: BP 128/86
== END 2020-01-25 14:56 | disposition home or self-care (01) ==
LOC: ER 10:36
DX: R31.29 Other microscopic hematuria (principal); R11.2 Nausea with vomiting, unspecified; R10.9 Unspecified abdominal pain; K59.00 Constipation, unspecified; R35.0 Frequency of micturition; Z93.2 Ileostomy status; Z85.038 Personal history of other malignant neoplasm of large intestine
CPT/HCPCS: 99284; 96361; 96374; 36415; 83690; 85025; 80053; 81001; 74022; J2405; J7030

== ENCOUNTER 2020-02-06 07:56 | Emergency (ER) | payer BC ==
[2020-02-06] MEDS ORDERED: MORPHINE SULFATE 10 MG/ML INJ IV ONE (09:12)
[2020-02-06] MEDS ORDERED: ONDANSETRON HCL INJ/PF 4 MG/2 ML SDV IV ONE ×2 (09:12→10:22)
--- NOTE | 2020-02-06 09:13 | ER Document Report ---
ED Medical Screen (RME) - General Chief Complaint: Abdominal Pain Stated Complaint: ABDOMINAL PAIN Time Seen by Provider: 02/06/20 09:09 Notes: HPI: 30-year-old male with prior history of pancreatic cancer in 2019 treated at [facility] with chemotherapy which ended in 2018 presenting for onset of right lower quadrant pain today with nausea vomiting. Patient states he has had nausea issues similar to this but felt better after IV fluids 2 weeks ago when he presented to the emergency department so declined imaging at that time. Has not consistently followed back up with his hematology team PHYSICAL EXAMINATION: Moderately uncomfortable, active vomiting in triage. Limited exam in triage, tenderness of the right lower quadrant on palpation I have greeted and performed a rapid initial assessment of this patient. A comprehensive ED assessment and evaluation of the patient, analysis of test results and completion of medical decision making process will be conducted by an additional ED providers. TRAVEL OUTSIDE OF THE [place] IN LAST 30 DAYS: No - Related Data Allergies/Adverse Reactions: No Known Allergies Allergy (Verified 02/06/20 08:14) Past Medical History - Social History Chew tobacco use (# tins/day): No Frequency of alcohol use: None Drug Abuse: Marijuana - Past Medical History Cardiac Medical History: Denies: Hx Coronary Artery Disease, Hx Heart Attack, Hx Hypertension Pulmonary Medical History: Denies: Hx Asthma, Hx Bronchitis, Hx COPD, Hx Pneumonia Neurological Medical History: Denies: Hx Cerebrovascular Accident, Hx Seizures Renal/ Medical History: Denies: Hx Peritoneal Dialysis Malignancy Medical History: Reports Hx Colorectal Cancer Musculoskeltal Medical History: Denies Hx Arthritis Past Surgical History: Reports: Hx Abdominal Surgery - exploratory lap, Hx Ileostomy, Other - R extended hemicolectomy, loop ileostomy 03/2018 - Immunizations Hx Diphtheria, Pertussis, Tetanus Vaccination: Yes Physical Exam - Vital signs Vitals: Temp Pulse Resp BP Pulse Ox 98.4 F 69 17 157/86 H 100 02/06/20 08:00 02/06/20 08:00 02/06/20 08:00 02/06/20 08:00 02/06/20 08:00 Course - Vital Signs Vital signs: Temp Pulse Resp BP Pulse Ox 98.4 F 69 17 157/86 H 100 02/06/20 08:14 02/06/20 08:00 02/06/20 08:00 02/06/20 08:00 02/06/20 08:00
[2020-02-06 10:38] LABS: ABSOLUTE EOSINOPHILS # (AUTO) 0.1 10^3/uL (0.0-0.6); ABSOLUTE LYMPHOCYTES (AUTO) 1.2 10^3/uL (0.5-4.7); ABSOLUTE MONOCYTES (AUTO) 0.4 10^3/uL (0.1-1.4); ABSOLUTE NEUT (AUTO) 3.9 10^3/uL (1.7-8.2); BASOPHILS % (AUTO) 0.3 % (0-2); EOSINOPHILS % (AUTO) 1.6 % (0-6); HEMOGLOBIN 15.9 g/dL (13.5-17.0); MEAN CORPUSCULAR HEMOGLOBIN 30.5 pg (27.0-33.4); MEAN CORPUSCULAR HGB CONC 33.8 g/dL (32.0-36.0); MEAN CORPUSCULAR VOLUME 90 fl (80-97); MONOCYTES % (AUTO) 7.8 % (3-13); PLATELET COUNT 290 10^3/uL (150-450); RED BLOOD COUNT 5.21 10^6/uL (4.35-5.55); RED CELL DISTRIBUTION WIDTH 16.1 % (11.5-14.0); SEGMENTED NEUTROPHILS % (AUTO) 69.3 % (42-78); TOTAL CELLS COUNTED % (AUTO) 100 %; WHITE BLOOD COUNT 5.7 10^3/uL (4.0-10.5)
[2020-02-06 10:55] LABS: APPEARANCE,URINE CLEAR; BILIRUBIN,URINE NEGATIVE (NEGATIVE); COLOR,URINE YELLOW; GLUCOSE, URINE NEGATIVE (NEGATIVE); KETONES,URINE NEGATIVE (NEGATIVE); LEUKOCYTE ESTERASE,URINE NEGATIVE (NEGATIVE); NITRITE,URINE NEGATIVE (NEGATIVE); PROTEIN,URINE NEGATIVE (NEGATIVE); URINE SPECIFIC GRAVITY 1.023; UROBILINOGEN,URINE NEGATIVE mg/dL (<2.0)
[2020-02-06 11:01] LABS: ALBUMIN 5.1 g/dL (3.5-5.0); ALKALINE PHOSPHATASE 80 U/L (38-126); ANION GAP 15 (5-19); ASPARTATE AMINO TRANSFERASE 26 U/L (17-59); BILIRUBIN,DIRECT 0.1 mg/dL (0.0-0.4); BILIRUBIN,TOTAL 0.5 mg/dL (0.2-1.3); BLOOD UREA NITROGEN 11 mg/dL (7-20); CARBON DIOXIDE 22 mmol/L (22-30); CHLORIDE 105 mmol/L (98-107); GLUCOSE 95 mg/dL (75-110); POTASSIUM 4.1 mmol/L (3.6-5.0); TOTAL PROTEIN 8.9 g/dL (6.3-8.2)
[2020-02-06] MEDS ORDERED: NORMAL SALINE 1000 ML 1,000 ML IV ONE (11:28)
[2020-02-06] MEDS ORDERED: PROMETHAZINE HCL INJ 25 MG/1 ML VIAL IV ONE (11:35)
--- NOTE | 2020-02-06 12:03 | ER Document Report ---
ED GI/ - General Chief Complaint: Abdominal Pain Stated Complaint: ABDOMINAL PAIN Time Seen by Provider: 02/06/20 09:09 Primary Care Provider: JENIFER BEEBE MD [Primary Care Provider] - Follow up as needed Notes: HPI: 30-year-old unfortunate male with a history of pancreatic cancer with surgical resection in 2019 at [facility] completing a course of chemotherapy who presents today with the onset last night of some nausea as well as some right lower quadrant nonradiating abdominal "pain". No real aggravating relieving factors. No diarrhea, flank pain, or dysuria. Patient was seen here in 2 weeks ago for nausea with resolution and he denied CT imaging at that time. ROS: See HPI All other review of systems reviewed and otherwise negative Reviewed vital signs and nursing note as charted by RN. PHYSICAL EXAM: CONSTITUTIONAL: Alert and oriented and responds appropriately to questions. Well-appearing; well-nourished HEAD: Normocephalic; atraumatic EYES: PERRL; Sclerae non-icteric ENT: Normal nose; no rhinorrhea; moist mucous membranes; pharynx without lesions noted NECK: Supple without meningismus; non-tender CARD: Regular rate and rhythm; no murmurs; symmetric distal pulses RESP: Normal chest excursion without splinting or tachypnea; breath sounds clear and equal bilaterally ABD/GI: Normal bowel sounds; old surgical scars consistent with history; non- distended; soft, only tender to the right lower quadrant without any rebound or guarding. No palpable masses. No testicular pain or swelling BACK: The back appears normal and is non-tender to palpation EXT: Normal ROM in all joints; non-tender to palpation; no edema SKIN: No acute lesions noted NEURO: CN 2-12 intact; 5/5 bilateral upper and lower extremity strength with sensation intact to light touch PSYCH: The patient's mood and manner are appropriate. Grooming and personal hygiene are appropriate. TRAVEL OUTSIDE OF THE [place] IN LAST 30 DAYS: No - Related Data Allergies/Adverse Reactions: No Known Allergies Allergy (Verified 02/06/20 08:14) Past Medical History - Social History Smoking Status: Unknown if Ever Smoked Chew tobacco use (# tins/day): No Frequency of alcohol use: None Drug Abuse: Marijuana Family History: None, Reviewed & Not Pertinent Patient has homicidal ideation: No - Past Medical History Cardiac Medical History: Denies: Hx Coronary Artery Disease, Hx Heart Attack, Hx Hypertension Pulmonary Medical History: Denies: Hx Asthma, Hx Bronchitis, Hx COPD, Hx Pneumonia Neurological Medical History: Denies: Hx Cerebrovascular Accident, Hx Seizures Renal/ Medical History: Denies: Hx Peritoneal Dialysis Malignancy Medical History: Reports Hx Colorectal Cancer Musculoskeletal Medical History: Denies Hx Arthritis Past Surgical History: Reports: Hx Abdominal Surgery - exploratory lap, Hx Ileostomy, Other - R extended hemicolectomy, loop ileostomy 03/2018 - Immunizations Hx Diphtheria, Pertussis, Tetanus Vaccination: Yes Physical Exam - Vital signs Vitals: Temp Pulse Resp BP Pulse Ox 98.4 F 69 17 157/86 H 100 02/06/20 08:00 02/06/20 08:00 02/06/20 08:00 02/06/20 08:00 02/06/20 08:00 Course - Re-evaluation Re-evalutation: 02/06/20 12:03 Given the above history and physical with the patient's complicated course, I will obtain a CT scan of the abdomen and pelvis as well as a liver panel and lipase. I would like to assess for the possibility of acute abdominal obstruction or recurrence of the cancer as well as other acute intra-abdominal pathology. 02/06/20 13:02 Labs, imaging, and urine analysis as recorded. Patient's pain is actually improved. Patient has had no vomiting since the second dose of nausea medicat ions. I have offered admission to the patient but the patient has declined. I will provide a short course of pain medications given the patient symptomatology and past medical history. Strict return precautions have been explained. - Vital Signs Vital signs: Temp Pulse Resp BP Pulse Ox 98.4 F 69 17 157/86 H 100 02/06/20 08:14 02/06/20 08:00 02/06/20 08:00 02/06/20 08:00 02/06/20 08:00 - Laboratory Result Diagrams: 02/06/20 09:40 02/06/20 09:40 Laboratory results interpreted by me: 02/06/20 02/06/20 02/06/20 09:40 09:40 10:19 RDW 16.1 H Total Protein 8.9 H Albumin 5.1 H Urine Blood MODERATE H Discharge - Discharge Clinical Impression: Right lower quadrant abdominal pain Nausea and vomiting Qualifiers: Vomiting type: unspecified Vomiting Intractability: non-intractable Qualified Code(s): R11.2 - Nausea with vomiting, unspecified Condition: Good Disposition: HOME, SELF-CARE Additional Instructions: Come back immediately for any increased/return of pain, fevers, persistent vomiting, or any other acute problems. Please follow-up with the primary care physician as discussed. Prescriptions: Hydrocodone/Acetaminophen [[place] 5-325 mg Tablet] 1 tab PO Q8 #10 tablet Ondansetron [Zofran Odt 4 mg Tablet] 1 tab PO Q6H #12 tab.rapdis Referrals: JENIFER BEEBE MD [Primary Care Provider] - Follow up as needed
--- NOTE | 2020-02-06 12:55 | RADIOLOGY REPORT (SQ) ---
EXAM DESCRIPTION: CT ABD/PELVIS WITH IV ORAL IMAGES COMPLETED DATE/TIME: 02/06/2020 12:17 pm REASON FOR STUDY: RLQ pain COMPARISON: 09/19/2018 TECHNIQUE: CT scan of the abdomen and pelvis performed using helical scanning technique with dynamic intravenous contrast injection. No oral contrast. Images reviewed with lung, soft tissue, and bone windows. Reconstructed coronal and sagittal MPR images reviewed. Delayed images for evaluation of the urinary system also acquired. All images stored on PACS. All CT scanners at this facility use dose modulation, iterative reconstruction, and/or weight based d osing when appropriate to reduce radiation dose to as low as reasonably achievable (ALARA). [facility]: Dose Right [facility]: CareDose [facility]: Dose Right [facility]: Teradose 4D [facility]: [employer] D[employer]en Pixels CONTRAST TYPE AND DOSE: contrast/concentration: Isovue 350.00 mmol/ml; Total Contrast Delivered: 95. 9 ml; Total Saline Delivered: 43.0 ml RENAL FUNCTION: GFR > 60. RADIATION DOSE: CT Rad equipment meets quality standard of care and radiation dose reduction techniq ues were employed. CTDIvol: 6.3 - 8.6 mGy. DLP: 800 mGy-cm.. LIMITATIONS: None. FINDINGS: LOWER CHEST: No significant findings. No nodules or infiltrates. LIVER: Normal size. Small cyst. No masses. No dilated ducts. SPLEEN: Normal size. No focal lesions. PANCREAS: No masses. No significant calcifications. No adjacent inflammation or peripancreatic fluid collections. Pancreatic duct not dilated. GALLBLADDER: No identified stones by CT criteria. No inflammatory changes to suggest cholecystitis. ADRENAL GLANDS: No significant masses or asymmetry. RIGHT KIDNEY AND URETER: No solid masses. No significant calcifications. No hydronephrosis or hyd roureter. LEFT KIDNEY AND URETER: No solid masses. No significant calcifications. No hydronephrosis or hydr oureter. AORTA AND VESSELS: No aneurysm. No dissection. Renal arteries, SMA, celiac without stenosis. RETROPERITONEUM: No retroperitoneal adenopathy, hemorrhage or masses. BOWEL AND PERITONEAL CAVITY: Bowel anastomosis left upper quadrant. No masses or inflammatory change s. No free fluid or peritoneal masses. APPENDIX: Not visualized. No inflammatory changes in the right lower quadrant. PELVIS: No mass. No free fluid. Normal bladder. ABDOMINAL WALL: No masses. No hernias. BONES: No significant or acute findings. OTHER: No other significant finding. IMPRESSION: No acute findings. TECHNICAL DOCUMENTATION: JOB ID: [id number] Quality ID # [id number]: Final reports with documentation of one or more dose reduction techniques (e.g., Au tomated exposure control, adjustment of the mA and/or kV according to patient size, use of iterative reconstruction technique) 2010 [employer]- All Rights Reserved Reading location - IP/workstation name: [email or web address]
[2020-02-06 13:17] VITALS: BP 151/89
== END 2020-02-06 13:18 | disposition home or self-care (01) ==
LOC: ER 07:56
DX: R10.31 Right lower quadrant pain (principal); R10.813 Right lower quadrant abdominal tenderness; R11.2 Nausea with vomiting, unspecified; F12.10 Cannabis abuse, uncomplicated; Z85.07 Personal history of malignant neoplasm of pancreas; Z85.048 Personal history of other malignant neoplasm of rectum, rectosigmoid junction, and anus; Z92.21 Personal history of antineoplastic chemotherapy
CPT/HCPCS: 96376; 99285; 96361; 96374; 96375; 36415; 83690; 85025; 80053; 81001; 74177; J2270; J2550; J2405; J7030